=== PATIENT | female | born 1950 | race Caucasian/White ===

== ENCOUNTER 2016-10-07 11:59 | Inpatient (IN) | payer OTHER, MEDICARE ==
[2016-10-07] MEDS: Lidocaine 5% Patch TD SCH (13:37)
[2016-10-07] MEDS ORDERED: Sodium Chloride 0.9% 1,000 ML IV STA ×2 (14:45→16:19)
--- NOTE | 2016-10-07 14:55 | ED PDOC ---
HPI: Back Time Seen by Provider: 10/07/16 12:53 Chief Complaint (Nursing): Hip Pain Chief Complaint (Provider): Back and Hip Pain History Per: Patient, Family History/Exam Limitations: no limitations Onset/Duration Of Symptoms: Mins (Prior to arrival) Current Symptoms Are (Timing): Still Present Additional Complaint(s): Daniella is a 66 y/o female who was brought to the ED by family s/p slip and fall onto buttocks, now complaining of right hip and lower back pain. States past medical history of arthritis, usually gets injections with Dr. Huerta. However, has not received any recently. Mobility decreasing due to pain. Denies hitting head or neck in the fall. Family also notes urine has foul-smelling odor , and shes been somewhat weaker than normal. Past medical history includes diabetes, hypertension, arthritis, and hypercholesterolemia. PMD: Dr. Huerta Past Medical History Reviewed: Historical Data, Nursing Documentation, Vital Signs Vital Signs: Last Vital Signs Temp 102 F H 10/07/16 12:05 Pulse 112 H 10/07/16 12:05 Resp 16 10/07/16 12:05 BP 120/72 10/07/16 12:05 Pulse Ox 99 10/07/16 12:05 - Medical History PMH: Anxiety (Takes Ativan at home), Arthritis, Diabetes, HTN, Hypercholesterolemia Denies: HIV, Chronic Kidney Disease - Surgical History Surgical History: No Surg Hx - Family History Family History: States: Unknown Family Hx - Social History Current smoker - smoking cessation education provided: No - Home Medications Home Medications: Ambulatory Orders Medication Instructions Recorded Insulin Lispro Protamin/Lispro 40 units SC DAILY 04/17/15 [Humalog Mix 75-25 Vial] Zolpidem [Ambien] 10 mg PO HS 04/17/15 Amitriptyline HCl 25 mg PO HS #0 tablet 04/18/15 Aspirin [Ecotrin] 81 mg PO DAILY #0 tabec 04/18/15 Doxycycline Hyclate [Doryx] 100 mg PO BID #14 cap 04/18/15 Duloxetine HCl 60 mg PO DAILY #0 capsule. 04/18/15 Enalapril Maleate [Vasotec] 5 mg PO DAILY #0 tab 04/18/15 Glimepiride [Amaryl] 4 mg PO BID #0 tablet 04/18/15 Hydroxyzine Pamoate 50 mg PO HS #0 capsule 04/18/15 Insulin Glargine,Hum.rec.anlog 50 unit SC HS #0 vial 04/18/15 [Lantus] Insulin Lispro Mix 75/25 [HumaLOG 40 units SC ACB #0 ml 04/18/15 Mix 75/25] Insulin Lispro Protamin/Lispro 30 units SC HS #0 vial 04/18/15 [Humalog Mix 75-25 Vial] LORazepam [Ativan] 1 mg PO BID #0 tab 04/18/15 Metformin HCl [Metformin HCl ER] 750 mg PO BID #0 tab.er.24h 04/18/15 Multivit,Iron,Min 5/Folic Acid 1 tab PO DAILY #0 tablet 04/18/15 [Strovite Forte Caplet] Simvastatin [Zocor] 40 mg PO DAILY #0 tablet 04/18/15 Amoxicillin 500 mg PO Q8H #30 tablet 04/25/15 Doxycycline Hyclate 100 mg PO Q12H #20 tablet 04/25/15 - Allergies Allergies/Adverse Reactions: Allergies Allergy/AdvReac Type Severity Reaction Status Date / Time No Known Allergies Allergy Verified 10/07/16 12:05 Review of Systems ROS Statement: Except As Marked, All Systems Reviewed And Found Negative Constitutional: Positive for: Weakness Genitourinary Female: Positive for: Dysuria, Other (Foul smelling urine) Musculoskeletal: Positive for: Back Pain (Lower back), Leg Pain (Right hip pain) , Other (Joint pains). Negative for: Neck Pain Neurological: Negative for: Headache, Other (Head trauma during fall) Physical Exam - Reviewed Nursing Documentation Reviewed: Yes Vital Signs Reviewed: Yes - Physical Exam Appears: Positive for: Well, Non-toxic, No Acute Distress Head Exam: Positive for: ATRAUMATIC, NORMAL INSPECTION, NORMOCEPHALIC Skin: Positive for: Normal Color, Warm, Dry Eye Exam: Positive for: EOMI, Normal appearance, PERRL Neck: Positive for: Normal, Painless ROM, Supple Cardiovascular/Chest: Positive for: Regular Rate, Rhythm. Negative for: Murmur Respiratory: Positive for: Normal Breath Sounds. Negative for: Accessory Muscle Use, Respiratory Distress Gastrointestinal/Abdominal: Positive for: Normal Exam, Soft. Negative for: Tenderness Back: Positive for: Other (Tenderness to lumbar area and right hip) Extremity: Positive for: Normal ROM. Negative for: Pedal Edema, Deformity Neurologic/Psych: Positive for: Alert, Oriented. Negative for: Motor/Sensory Deficits - Laboratory Results Result Diagrams: 10/07/16 15:30 10/07/16 15:30 - ECG O2 Sat by Pulse Oximetry: 99 (RA) Pulse Ox Interpretation: Normal Medical Decision Making Medical Decision Making: Time: 12:53 Initial Plan: --In ED patient was found to have fever, therefore workup for sepsis initiated --Initiated Tylenol for fever and pain --Will work up for source of infection, possibly urine; obtain imaging back/ hips r/o traumatic injury from fall. Denies hitting head. --Pending X-Rays Right Hip and Lumbar Spine --X-Rays Right Hip and Lumbar Spine reveal no fracture, interpreted and reviewed by me Time: 15:00 --Patient is signed out by me to Dr. Sophia Cruz, pending labs and reevaluation Scribe Attestation: Documented by Caitlin Guevara, acting as a scribe for Rolo Thompson III, DO Provider Scribe Attestation: All medical record entries made by the Scribe were at my direction and personally dictated by me. I have reviewed the chart and agree that the record accurately reflects my personal performance of the history, physical exam, medical decision making, and the department course for this patient. I have also personally directed, reviewed, and agree with the discharge instructions and disposition. Disposition - Clinical Impression Clinical Impression: Fever, Contusion, hip, Back pain - Patient ED Disposition Is Patient to be Admitted: Transfer of Care - Disposition Disposition: Transfer of Care Disposition Time: 15:00 Condition: GUARDED Forms: [employer] ([employer]) Patient Signed Over To: Sophia Cruz Handoff Comments: pending bloodwork and dispo
--- NOTE | 2016-10-07 15:27 | ED PDOC ---
- Laboratory Results Result Diagrams: 10/07/16 15:30 10/07/16 15:30 - ECG O2 Sat by Pulse Oximetry: 99 (RA) Pulse Ox Interpretation: Normal Medical Decision Making Medical Decision Making: Time: 15:00 --Patient is signed out by Dr. Rolo Thompson III DO to me, pending urine, labs, and reevaluation Time: 16:20 --Labs and urine reviewed, Urine WBC count elevated, uti noted Clinical Impression: UTI, Sepsis --Will be admitted to hospitalist for UTI and sepsis workup --Dr. Reid aware --IV fluids and Rocephin given --Patient and family's questions answered Scribe Attestation: Documented by Caitlin Guevara, acting as a scribe for Sophia Cruz MD Provider Scribe Attestation: All medical record entries made by the Scribe were at my direction and personally dictated by me. I have reviewed the chart and agree that the record accurately reflects my personal performance of the history, physical exam, medical decision making, and the department course for this patient. I have also personally directed, reviewed, and agree with the discharge instructions and disposition. Disposition - Clinical Impression Clinical Impression: Fever, Contusion, hip, Back pain, UTI (urinary tract infection) - POA Present On Arrival: None - Disposition Disposition: Admitted as In-Patient Disposition Time: 16:00 Condition: GUARDED
[2016-10-07 15:40] LABS: VENOUS BLOOD GAS BASE EXCESS 1.4 mmol/L (0.0-2.0); VENOUS BLOOD GAS PCO2 35 mmHg (40-60); VENOUS BLOOD PH 7.46 (7.32-7.43)
[2016-10-07 15:44] LABS: BASO % 0.1 % (0.0-2.0); HEMATOCRIT 38.4 % (34.0-47.0); LYMPH % 9.9 % (20.0-40.0); MEAN CELL VOLUME 78.6 fl (81.0-99.0); MEAN CORPUSCULAR HEMOGLOBIN 24.8 pg (27.0-31.0); MEAN CORPUSCULAR HGB CONC 31.5 g/dL (33.0-37.0); MEAN PLATELET VOLUME 8.9 fl (7.2-11.7); MONO # 1.4 K/uL (0.0-0.8); MONO % 6.8 % (0.0-10.0); NEUT # 16.7 K/uL (1.8-7.0); NEUT % 83.2 % (50.0-75.0); RED CELL DISTRIBUTION WIDTH 13.5 % (11.5-14.5); WHITE BLOOD COUNT 20.1 K/uL (4.8-10.8)
[2016-10-07 15:52] LABS: ALB/GLOB RATIO 1.1 (1.0-2.1); ALKALINE PHOSPHATASE 80 U/L (38-126); ALT/SGPT 49 U/L (9-52); AST/SGOT 27 U/L (14-36); BILIRUBIN,TOTAL 0.8 mg/dl (0.2-1.3); BLOOD UREA NITROGEN 15 mg/dl (7-17); CALCIUM 9.3 mg/dL (8.4-10.2); CARBON DIOXIDE 23 mmol/L (22-30); CHLORIDE 98 mmol/L (98-107); GFR AFRICAN-AMERICAN > 60; GLUCOSE,RANDOM 279 mg/dL (65-105); POTASSIUM 3.9 MMOL/L (3.6-5.0); SODIUM 132 mmol/l (132-148); TOTAL PROTEIN 7.1 G/DL (6.3-8.2)
[2016-10-07 16:00] LABS: PLATELET COUNT 211 K/uL (130-400)
[2016-10-07 16:06] LABS: RBC URINE 13 /hpf (0-3); URINE BACTERIA MANY (<OCC); URINE BILIRUBIN NEGATIVE (NEGATIVE); URINE BLOOD SMALL (NEGATIVE); URINE COLOR YELLOW (YELLOW); URINE GLUCOSE (UA) >=500 mg/dL (Normal); URINE KETONE 20 mg/dL (NEGATIVE); URINE LEUKOCYTE ESTERASE LARGE Leu/uL (Negative); URINE PROTEIN 100 mg/dL (NEGATIVE); URINE UROBILINOGEN 0.2-1.0 mg/dL (0.2-1.0); WBC URINE 353 /hpf (0-5)
--- NOTE | 2016-10-07 17:06 | RAD ---
PROCEDURE: Radiographs of the Lumbar Spine. HISTORY: fall trauma COMPARISON: 09/18/2007 FINDINGS: BONES: No acute fracture. DISC SPACES: Progressive degenerative changes primarily disc space narrowing and non marginal osteophyte formation OTHER FINDINGS: None. IMPRESSION: Progressive degenerative changes common no acute findings.
--- NOTE | 2016-10-07 17:07 | RAD ---
PROCEDURE: Pelvis right hip HISTORY: fall trauma COMPARISON: None TECHNIQUE: Standard protocol for this study/examination. FINDINGS: There are no osseous abnormalities to suggest fracture. The pelvic ring is intact. Preserved femoral-acetabular relationship. Negative study for protrusio, subluxation or dislocation. Degenerative changes: Mild and bilaterally symmetrical. IMPRESSION: No acute findings related to/accounting for the clinical presentation.
--- NOTE | 2016-10-07 17:13 | RAD ---
HISTORY: Fever COMPARISON: 04/22/2015. FINDINGS: LUNGS: No active pulmonary disease. PLEURA: No significant pleural effusion identified, no pneumothorax apparent. CARDIOVASCULAR: No radiographic findings to suggest acute or significant cardiovascular disease. OSSEOUS STRUCTURES: No significant abnormalities. VISUALIZED UPPER ABDOMEN: Normal. OTHER FINDINGS: None. IMPRESSION: No active disease. No significant interval change compared to the prior examination(s).
--- NOTE | 2016-10-07 17:34 | CP.PCM.HP ---
History of Present Illness - History of Present Illness History of Present Illness: CC: hip pain HPI 66 year old female PMH HTN HLD DM osteoarthritis, initially presented to the emergency room s/p mechanical fall, without head injury, for pain in hips and legs, which she states is moderate, nonradiating, no associated with any other sx. Patient usually receives injections from Dr. Huerta for pain. Pt HIP and PELVIS XR showed degenerative changes without any acute findings. Patient also complained of foul smelling urine, UA + LE and nit, WBC 20.1 pt tachycardic TMAX 102 in ER, pt started on Ceftriaxone. Pt to be admitted to [facility] for IV abx and further management. ROS: per HPI, 12 systems reviewed and negative PMD: Dr Huerta PMH: HTN HLD DM osteoarthritis FH: denies SH: denies tobacco, ETOH, IVDU Meds: as below Allergies: NKDA Vitals: reviewed and currently stable Temp Pulse Resp BP Pulse Ox 100.4 F H 112 H 16 120/72 99 10/07/16 14:20 10/07/16 12:05 10/07/16 12:05 10/07/16 12:05 10/07/16 16:28 Exam: GEN: WDWN, alert, cooperative HEENT: NCAT, PERRL, EOMI NECK: supple, no JVD, no lymphadenopathy CARDIAC: +S1S2 RRR LUNG: CTAB No WRR ABD: SOFT NT ND BSX4 NO MASSES NO HSM EXT: +pedal pulses, equal strength NEURO: AAOx3 SKIN warm, dry PSYCH normal mood, normal affect Labs: 10/07/16 15:30 10/07/16 15:30 10/07/16 10/07/16 10/07/16 15:35 15:30 15:30 WBC 20.1 H D RBC 4.89 Hgb 12.1 Hct 38.4 MCV 78.6 L MCH 24.8 L MCHC 31.5 L RDW 13.5 Plt Count 211 D MPV 8.9 Neut % (Auto) 83.2 H Lymph % (Auto) 9.9 L [place] % (Auto) 6.8 Eos % (Auto) 0.0 Baso % (Auto) 0.1 Neut # 16.7 H Lymph # 2.0 [place] # 1.4 H Eos # 0.0 Baso # 0.0 Neutrophils % (Manual) 80 H Band Neutrophils % 1 Lymphocytes % (Manual) 11 L Monocytes % (Manual) 8 Platelet Estimate Normal Hypochromasia (manual) Slight Anisocytosis (manual) Slight Microcytosis (manual) Slight pO2 46 VBG pH 7.46 H VBG pCO2 35 L VBG HCO3 25.7 VBG Total CO2 26.0 VBG O2 Sat (Calc) 89.2 H VBG Base Excess 1.4 VBG Potassium 3.9 Glucose 300 H Lactate 1.5 FiO2 21.0 Sodium 131.0 L Potassium Chloride 98.0 Carbon Dioxide Anion Gap BUN Creatinine Est GFR ( Amer) Est GFR (Non-Af Amer) Random Glucose Calcium Total Bilirubin AST ALT Alkaline Phosphatase Total Protein Albumin Globulin Albumin/Globulin Ratio Venous Blood Potassium 3.9 Urine Color Yellow Urine Clarity Cloudy Urine pH 5.0 Ur Specific [place] 1.023 Urine Protein 100 Urine Glucose (UA) >=500 Urine Ketones 20 Urine Blood Small Urine Nitrate Positive H Urine Bilirubin Negative Urine Urobilinogen 0.2-1.0 Ur Leukocyte Esterase Large Urine RBC (Auto) 13 H Urine Microscopic WBC 353 H Ur Squamous Epith Cells 18 H Urine Bacteria Many H 10/07/16 15:30 WBC RBC Hgb Hct MCV MCH MCHC RDW Plt Count MPV Neut % (Auto) Lymph % (Auto) [place] % (Auto) Eos % (Auto) Baso % (Auto) Neut # Lymph # [place] # Eos # Baso # Neutrophils % (Manual) Band Neutrophils % Lymphocytes % (Manual) Monocytes % (Manual) Platelet Estimate Hypochromasia (manual) Anisocytosis (manual) Microcytosis (manual) pO2 VBG pH VBG pCO2 VBG HCO3 VBG Total CO2 VBG O2 Sat (Calc) VBG Base Excess VBG Potassium Glucose Lactate FiO2 Sodium 132 Potassium 3.9 Chloride 98 Carbon Dioxide 23 Anion Gap 15 BUN 15 Creatinine 0.7 Est GFR ( Amer) > 60 Est GFR (Non-Af Amer) > 60 Random Glucose 279 H Calcium 9.3 Total Bilirubin 0.8 AST 27 ALT 49 Alkaline Phosphatase 80 Total Protein 7.1 Albumin 3.7 Globulin 3.3 Albumin/Globulin Ratio 1.1 Venous Blood Potassium Urine Color Urine Clarity Urine pH Ur Specific [place] Urine Protein Urine Glucose (UA) Urine Ketones Urine Blood Urine Nitrate Urine Bilirubin Urine Urobilinogen Ur Leukocyte Esterase Urine RBC (Auto) Urine Microscopic WBC Ur Squamous Epith Cells Urine Bacteria Rads: HIP and PELVIS XR showed degenerative changes without any acute findings Active Medications: Sodium Chloride 0.9% 1,000 ml IV 200 mls/hr 10/07/16 17:28 Ondansetron [Zofran Inj] 4 mg IVP Q6 PRN 10/07/16 17:30 LORazepam [Ativan] 1 mg PO Q12H 10/07/16 22:00 Amitriptyline [Elavil] 50 mg PO HS Insulin Lispro [humALOG] See Protocol SC ACHS hydrOXYzine Pamoate [Vistaril] 50 mg PO HS 10/08/16 08:00 GlipiZIDE SR [Glucotrol XL] 10 mg PO BRK 10/08/16 09:00 Aspirin [Ecotrin] 81 mg PO DAILY Atorvastatin [Lipitor] 20 mg PO DAILY DULoxetine [Cymbalta] 60 mg PO DAILY Enalapril Maleate [Vasotec] 5 mg PO DAILY Enoxaparin [Lovenox] 40 mg SC DAILY Lidocaine 5% [Lidoderm] 1 ea TD DAILY cefTRIAXone [Rocephin] 1 gm Sodium Chloride 0.9% 100 ml IVPB DAILY 10/11/16 17:29 Cholecalciferol [Vitamin D] 5,000 iu PO MO Assessment and Plan: 66 year old female PMH HTN HLD DM osteoarthritis, initially presented to the emergency room s/p mechanical fall, without head injury, for pain in hips and legs, which she states is moderate, nonradiating, no associated with any other sx. Patient usually receives injections from Dr. Huerta for pain. Pt HIP and PELVIS XR showed degenerative changes without any acute findings. Patient also complained of foul smelling urine, UA + LE and nit, WBC 20.1 pt tachycardic TMAX 102 in ER, pt started on Ceftriaxone. Pt to be admitted to [facility] for IV abx and further management. Sepsis/UTI - Patient complained of foul smelling urine - UA + LE and nit, WBC 20.1, pt was tachycardic 112, TMAX 102 in ER - pt started on Ceftriaxone. - cultures pending Hip Pain - XR negative other than degenerative changes, no acute pathology DM - accuchecks - lispro sliding scale low - cont glipizide HTN - stable - cont vasotec HLD - cont statin Depression/Anxiety - continue ativan, elavil, cymbalta VTE ppx lovenox Present on Admission - Present on Admission Any Indicators Present on Admission: No Past Patient History - Past Medical History & Family History Past Medical History?: Yes - Past Social History Smoking Status: Never Smoked - CARDIAC Hx Hypercholesterolemia: Yes Hx Hypertension: Yes - PULMONARY Hx Respiratory Disorders: No - NEUROLOGICAL Hx Neurological Disorder: No - HEENT Hx HEENT Problems: Yes Other/Comment: Wears eyeglasses - RENAL Hx Chronic Kidney Disease: No - ENDOCRINE/METABOLIC Hx Endocrine Disorders: Yes Hx Diabetes Mellitus Type 2: Yes - HEMATOLOGICAL/ONCOLOGICAL Hx Human Immunodeficiency Virus (HIV): No - INTEGUMENTARY Hx Dermatological Problems: Yes Hx Cellulitis: Yes (hx of cellulitis of abdomen) - MUSCULOSKELETAL/RHEUMATOLOGICAL Hx Arthritis: Yes - GASTROINTESTINAL Hx Gastrointestinal Disorders: No - GENITOURINARY/GYNECOLOGICAL Hx Genitourinary Disorders: No - PSYCHIATRIC Hx Anxiety: Yes (Takes Ativan at home) - SURGICAL HISTORY Hx Surgeries: Yes Hx Hysterectomy: Yes Hx Tubal Ligation: Yes Other/Comment: tubal ligation/tonsil surgery - ANESTHESIA Hx Anesthesia: Yes Hx Anesthesia Reactions: No Hx Malignant Hyperthermia: No Meds Allergies/Adverse Reactions: Allergies Allergy/AdvReac Type Severity Reaction Status Date / Time No Known Allergies Allergy Verified 10/07/16 12:05 Results - Vital Signs Recent Vital Signs: Last Vital Signs Temp 100.4 F H 10/07/16 14:20 Pulse 112 H 10/07/16 12:05 Resp 16 10/07/16 12:05 BP 120/72 10/07/16 12:05 Pulse Ox 99 10/07/16 16:28 - Labs Result Diagrams: 10/07/16 15:30 10/07/16 15:30
[2016-10-07] MEDS ORDERED: cefTRIAXone (Rocephin) 1 gm Inj ONE (17:48)
[2016-10-07 18:24] LABS: NEUTROPHIL 80 % (42-75); TOTAL CELLS COUNTED 100
[2016-10-07] MEDS ORDERED: Metoprolol 1 mg/ml Inj IVP STA (19:45)
[2016-10-07] MEDS ORDERED: Metoprolol 1 mg/ml Inj IVP ONE (20:01)
[2016-10-07] MEDS: Insulin Lispro (humaLOG) 100 Units/ml Inj SC SCH (21:54)
[2016-10-07] MEDS: Sodium Chloride 0.9% 1,000 ML IV SCH (23:04)
[2016-10-08] MEDS: Insulin Lispro (humaLOG) 100 Units/ml Inj SC SCH ×4 (06:31→22:38)
[2016-10-08] MEDS: Sodium Chloride 0.9% 1,000 ML IV SCH ×2 (08:00→18:57)
[2016-10-08] MEDS: GlipiZIDE 10 mg SR Tab PO SCH (08:44)
[2016-10-08 08:48] LABS: BASO % 0.1 % (0.0-2.0); HEMATOCRIT 39.2 % (34.0-47.0); LYMPH # 1.2 K/uL (1.0-4.3); MEAN CORPUSCULAR HEMOGLOBIN 25.1 pg (27.0-31.0); MEAN CORPUSCULAR HGB CONC 31.8 g/dL (33.0-37.0); MONO # 1.1 K/uL (0.0-0.8); MONO % 6.2 % (0.0-10.0); NEUT # 14.9 K/uL (1.8-7.0); NEUT % 86.7 % (50.0-75.0); RED CELL DISTRIBUTION WIDTH 13.5 % (11.5-14.5); WHITE BLOOD COUNT 17.2 K/uL (4.8-10.8)
[2016-10-08 09:01] LABS: BLOOD UREA NITROGEN 13 mg/dl (7-17); CALCIUM 8.7 mg/dL (8.4-10.2); CARBON DIOXIDE 22 mmol/L (22-30); CHLORIDE 103 mmol/L (98-107); GFR AFRICAN-AMERICAN > 60; GLUCOSE,RANDOM 259 mg/dL (65-105); POTASSIUM 4.1 MMOL/L (3.6-5.0); SODIUM 136 mmol/l (132-148)
[2016-10-08] MEDS: Enoxaparin 40 mg Syringe SC SCH (09:41)
--- NOTE | 2016-10-08 10:39 | CARD ---
APPROVED REPORT EKG Measurement Heart [id number] <Conclusion> Sinus tachycardia Nonspecific ST abnormality Abnormal ECG
--- NOTE | 2016-10-08 16:08 | CP.PCM.CON ---
History of Present Illness - History of Present Illness History of Present Illness: Infectious Disease Consult note- was asked to see ths patient at the request of for bacteremia and UTI. HPI- patient is a 66 year old female with omh of DM II, HTN, who was admitted with c/ o right leg and hip pain post slipping and neda ddition she also c/o foul smelling urine with buring sensation post voiding. denies any fever or chills. In the ED pt. was found to have fever of 102 and + UA and hence was admitted for sepsis work up. Pt. denies any fever or chills at home. she states she has had UTI in the past. also states she did not fall she slipped on the right side of her body and has pain in the right leg and hip region. I'masked to see the patient because she is reported to have positive blood and urine cx. PMH: HTN HLD DM osteoarthritis FH: denies SH: denies tobacco, ETOH, IVDU Meds: as below Allergies: NKDA Review of Systems - Review of Systems Review of Systems: ROS- denies any fever or chills but was found to have fever in ED, denies any SOLANO, denies any cough, denies any sob, denies any chest pain, denies any N/V, denies any abd pain , + dysurea and foul smelling urine, positive right leg/hip pain post slipping at home denies any diarrhea denies any sick contacts Past Patient History - Past Medical History & Family History Past Medical History?: Yes - Past Social History Smoking Status: Never Smoked Alcohol: None Drugs: Denies Home Situation {Lives}: Alone - CARDIAC Hx Hypercholesterolemia: Yes Hx Hypertension: Yes - PULMONARY Hx Respiratory Disorders: No - NEUROLOGICAL Hx Neurological Disorder: No - HEENT Hx HEENT Problems: Yes - RENAL Hx Chronic Kidney Disease: No - ENDOCRINE/METABOLIC Hx Endocrine Disorders: Yes Hx Diabetes Mellitus Type 2: Yes - HEMATOLOGICAL/ONCOLOGICAL Hx Blood Disorders: No - INTEGUMENTARY Hx Dermatological Problems: No - MUSCULOSKELETAL/RHEUMATOLOGICAL Hx Musculoskeletal Disorders: Yes Hx Arthritis: Yes Hx Falls: Yes (recent) - GASTROINTESTINAL Hx Gastrointestinal Disorders: No - GENITOURINARY/GYNECOLOGICAL Hx Genitourinary Disorders: No - PSYCHIATRIC Hx Psychophysiologic Disorder: Yes Hx Anxiety: Yes Hx Substance Use: No - SURGICAL HISTORY Hx Surgeries: Yes Hx Hysterectomy: Yes Hx Tubal Ligation: Yes Other/Comment: tubal ligation/tonsil surgery - ANESTHESIA Hx Anesthesia: Yes Hx Anesthesia Reactions: No Hx Malignant Hyperthermia: No Meds Allergies/Adverse Reactions: Allergies Allergy/AdvReac Type Severity Reaction Status Date / Time No Known Allergies Allergy Verified 10/07/16 12:05 - Medications Medications: Current Medications Acetaminophen (Tylenol 325mg Tab) 650 mg PO Q4 PRN PRN Reason: Fever >100.4 F Amitriptyline HCl (Elavil) 50 mg PO HS [facility] Last Admin: 10/07/16 22:19 Dose: 50 mg Aspirin (Ecotrin) 81 mg PO DAILY [facility] Last Admin: 10/08/16 09:05 Dose: 81 mg Atorvastatin Calcium (Lipitor) 20 mg PO DAILY [facility] Cholecalciferol (Vitamin D) 5,000 iu PO MO [facility] Duloxetine HCl (Cymbalta) 60 mg PO DAILY [facility] Last Admin: 10/08/16 09:56 Dose: Not Given Enalapril Maleate (Vasotec) 5 mg PO DAILY [facility] Last Admin: 10/08/16 09:50 Dose: 5 mg Enoxaparin Sodium (Lovenox) 40 mg SC DAILY [facility] PRN Reason: Protocol Last Admin: 10/08/16 09:41 Dose: 40 mg Glipizide (Glucotrol Xl) 10 mg PO BRK [facility] Last Admin: 10/08/16 08:44 Dose: 10 mg Hydroxyzine Pamoate (Vistaril) 50 mg PO HS [facility] Last Admin: 10/07/16 22:19 Dose: 50 mg Ceftriaxone Sodium 1 gm/ (Sodium Chloride) 100 mls @ 100 mls/hr IVPB DAILY [facility] Last Admin: 10/08/16 09:19 Dose: 100 mls/hr Sodium Chloride (Sodium Chloride 0.9%) 1,000 mls @ 100 mls/hr IV .Q10H [facility] Stop: 10/08/16 22:30 Last Admin: 10/08/16 08:00 Dose: 100 mls/hr Vancomycin HCl 1 gm/ Sodium (Chloride) 250 mls @ 166.667 mls/hr IVPB DAILY [facility] Insulin Human Lispro (Humalog) 0 units SC ACHS [facility] PRN Reason: Protocol Last Admin: 10/08/16 12:13 Dose: 3 units Ketorolac Tromethamine (Toradol) 30 mg IVP Q6 PRN PRN Reason: Pain, severe (8-10) Last Admin: 10/08/16 10:49 Dose: 30 mg Ketorolac Tromethamine (Toradol) 15 mg IVP Q6 PRN PRN Reason: Pain, moderate (4-7) Lidocaine (Lidoderm) 1 ea TD DAILY [facility] Last Admin: 10/07/16 13:37 Dose: 1 ea Lorazepam (Ativan) 1 mg PO Q12@0900,2100 [facility] Last Admin: 10/08/16 09:40 Dose: 1 mg Metoprolol Tartrate (Lopressor) 12.5 mg PO Q12 [facility] Last Admin: 10/08/16 09:42 Dose: 12.5 mg Ondansetron HCl (Zofran Inj) 4 mg IVP Q6 PRN PRN Reason: Nausea/Vomiting Zolpidem Tartrate (Ambien) 5 mg PO HS PRN PRN Reason: Sleep Last Admin: 10/07/16 22:57 Dose: 5 mg Physical Exam - Constitutional Appears: No Acute Distress - Head Exam Head Exam: ATRAUMATIC - Eye Exam Eye Exam: EOMI, PERRL - ENT Exam ENT Exam: Normal Oropharynx - Neck Exam Neck exam: Positive for: Full Rom - Respiratory Exam Respiratory Exam: Clear to Auscultation Bilateral, NORMAL BREATHING PATTERN - Cardiovascular Exam Cardiovascular Exam: RRR, +S1, +S2 - GI/Abdominal Exam GI & Abdominal Exam: Normal Bowel Sounds, Soft Additional comments: NT, ND No CVA tenderness - Extremities Exam Additional comments: no edema B/L LE - Neurological Exam Neurological exam: Alert, Oriented x3 Results - Vital Signs Recent Vital Signs: Last Vital Signs Temp 99.2 F 10/08/16 12:00 Pulse 96 H 10/08/16 12:00 Resp 18 10/08/16 12:00 BP 109/66 10/08/16 12:00 Pulse Ox 95 10/08/16 12:00 - Labs Result Diagrams: 10/08/16 08:39 10/08/16 08:39 Labs: Laboratory Results - last 24 hr 10/07/16 10/07/16 10/08/16 17:35 21:22 05:44 WBC RBC Hgb Hct MCV MCH MCHC RDW Plt Count MPV Neut % (Auto) Lymph % (Auto) [place] % (Auto) Eos % (Auto) Baso % (Auto) Neut # Lymph # [place] # Eos # Baso # Sodium Potassium Chloride Carbon Dioxide Anion Gap BUN Creatinine Est GFR ( Amer) Est GFR (Non-Af Amer) POC Glucose (mg/dL) 265 H 273 H 277 H Random Glucose Calcium 10/08/16 10/08/16 10/08/16 08:39 08:39 11:32 WBC 17.2 H RBC 4.96 Hgb 12.4 Hct 39.2 MCV 79.0 L MCH 25.1 L MCHC 31.8 L RDW 13.5 Plt Count 200 MPV 9.0 Neut % (Auto) 86.7 H Lymph % (Auto) 7.0 L [place] % (Auto) 6.2 Eos % (Auto) 0.0 Baso % (Auto) 0.1 Neut # 14.9 H Lymph # 1.2 [place] # 1.1 H Eos # 0.0 Baso # 0.0 Sodium 136 Potassium 4.1 Chloride 103 Carbon Dioxide 22 Anion Gap 14 BUN 13 Creatinine 0.6 L Est GFR ( Amer) > 60 Est GFR (Non-Af Amer) > 60 POC Glucose (mg/dL) 281 H Random Glucose 259 H Calcium 8.7 Microbiology 10/07/16 15:15 Blood S.aureus & Coag-Neg Staph PNA FISH - Final 10/07/16 15:15 Blood Gram Stain - Final 10/07/16 15:30 Blood Gram Stain - Final 10/07/16 15:30 Urine,Clean Catch Urine Culture - Preliminary Gram Negative [place] Accession No. : [id number] Patient Name / ID : KEVAN WALL / [id number] Exam Date : 10/07/2016 14:46:03 ( Approved ) Study Comment : Sex / Age : F / 66Y Creator : Levi Frausto MD Dictator : Levi Frausto MD Plumber'S Assistant : [employer] Pipe Fitter : Levi Frausto MD Approver2 : Report Date : 10/07/2016 17:11:50 My Comment : HISTORY: Fever COMPARISON: 04/22/2015. FINDINGS: LUNGS: No active pulmonary disease. PLEURA: No significant pleural effusion identified, no pneumothorax apparent. CARDIOVASCULAR: No radiographic findings to suggest acute or significant cardiovascular disease. OSSEOUS STRUCTURES: No significant abnormalities. VISUALIZED UPPER ABDOMEN: Normal. OTHER FINDINGS: None. IMPRESSION: No active disease. No significant interval change compared to the prior examination(s). Accession No. : [id number] Patient Name / ID : KEVAN WALL / [id number] Exam Date : 10/07/2016 13:16:41 ( Approved ) Study Comment : Sex / Age : F / 66Y Creator : Levi Frausto MD Dictator : Levi Frausto MD Plumber'S Assistant : [employer] Pipe Fitter : Levi Frausto MD Approver2 : Report Date : 10/07/2016 17:05:56 My Comment : PROCEDURE: Pelvis right hip HISTORY: fall trauma COMPARISON: None TECHNIQUE: Standard protocol for this study/examination. FINDINGS: There are no osseous abnormalities to suggest fracture. The pelvic ring is intact. Preserved femoral-acetabular relationship. Negative study for protrusio , subluxation or dislocation. Degenerative changes: Mild and bilaterally symmetrical. IMPRESSION: No acute findings related to/accounting for the clinical presentation. Assessment & Plan - Assessment and Plan (Free Text) Assessment: A/P- 66 year old female with HTN, DM II admitted with UTI and found to also have bacteremia. afebrile now has leukocytosis. source of the GPC bacteremia uncler since the urine cx is GNR. plan- check echo rule out any vegetations. await ID and sensitivity of the GPC in blood cx. at this time start IV vancomycin for the GPC bacteremia. also advise to d/c ceftriaxone and instead start zosyn for broader gram neg coverage pending urine cx and sensitivity result. check 2 more blood cx as well. all above d/w patient and she verbalizes full understanding of all above. Thank you for allowing me to take part in the care of this patient.
--- NOTE | 2016-10-08 18:04 | CP.PCM.PN ---
Subjective - Date & Time of Evaluation Date of Evaluation: 10/08/16 Time of Evaluation: 09:30 - Subjective Subjective: Patient was seen and examined bedside. Does not feel well. Complains of severe pain to right hip radiating to the lateral thigh. Febrile with Tmax 102.9, tachycardic HR 111 . Denies any abdominal pain, SOB, CVP, cough. Denies any fall Objective - Vital Signs/Intake and Output Vital Signs (last 24 hours): Temp Pulse Resp BP Pulse Ox 100.0 F H 111 H 20 154/78 H 97 10/08/16 16:26 10/08/16 16:26 10/08/16 16:26 10/08/16 16:26 10/08/16 16:26 - Medications Medications: Current Medications Acetaminophen (Tylenol 325mg Tab) 650 mg PO Q4 PRN PRN Reason: Fever >100.4 F Amitriptyline HCl (Elavil) 50 mg PO HS [facility] Last Admin: 10/07/16 22:19 Dose: 50 mg Aspirin (Ecotrin) 81 mg PO DAILY [facility] Last Admin: 10/08/16 09:05 Dose: 81 mg Atorvastatin Calcium (Lipitor) 20 mg PO DAILY [facility] Cholecalciferol (Vitamin D) 5,000 iu PO MO [facility] Duloxetine HCl (Cymbalta) 60 mg PO DAILY [facility] Last Admin: 10/08/16 09:56 Dose: Not Given Enalapril Maleate (Vasotec) 5 mg PO DAILY [facility] Last Admin: 10/08/16 09:50 Dose: 5 mg Enoxaparin Sodium (Lovenox) 40 mg SC DAILY [facility] PRN Reason: Protocol Last Admin: 10/08/16 09:41 Dose: 40 mg Glipizide (Glucotrol Xl) 10 mg PO BRK [facility] Last Admin: 10/08/16 08:44 Dose: 10 mg Hydroxyzine Pamoate (Vistaril) 50 mg PO HS [facility] Last Admin: 10/07/16 22:19 Dose: 50 mg Ceftriaxone Sodium 1 gm/ (Sodium Chloride) 100 mls @ 100 mls/hr IVPB DAILY [facility] Last Admin: 10/08/16 09:19 Dose: 100 mls/hr Sodium Chloride (Sodium Chloride 0.9%) 1,000 mls @ 100 mls/hr IV .Q10H [facility] Stop: 10/08/16 22:30 Last Admin: 10/08/16 08:00 Dose: 100 mls/hr Vancomycin HCl 1 gm/ Sodium (Chloride) 250 mls @ 166.667 mls/hr IVPB DAILY [facility] Insulin Human Lispro (Humalog) 0 units SC ACHS [facility] PRN Reason: Protocol Last Admin: 10/08/16 12:13 Dose: 3 units Ketorolac Tromethamine (Toradol) 30 mg IVP Q6 PRN PRN Reason: Pain, severe (8-10) Last Admin: 10/08/16 10:49 Dose: 30 mg Ketorolac Tromethamine (Toradol) 15 mg IVP Q6 PRN PRN Reason: Pain, moderate (4-7) Lidocaine (Lidoderm) 1 ea TD DAILY [facility] Last Admin: 10/07/16 13:37 Dose: 1 ea Lorazepam (Ativan) 1 mg PO Q12@0900,2100 [facility] Last Admin: 10/08/16 09:40 Dose: 1 mg Metoprolol Tartrate (Lopressor) 12.5 mg PO Q12 [facility] Last Admin: 10/08/16 09:42 Dose: 12.5 mg Ondansetron HCl (Zofran Inj) 4 mg IVP Q6 PRN PRN Reason: Nausea/Vomiting Zolpidem Tartrate (Ambien) 5 mg PO HS PRN PRN Reason: Sleep Last Admin: 10/07/16 22:57 Dose: 5 mg - Labs Labs: 10/08/16 08:39 10/08/16 08:39 - Constitutional Appears: Other (in pain ) - Head Exam Head Exam: ATRAUMATIC, NORMAL INSPECTION, NORMOCEPHALIC - Eye Exam Eye Exam: EOMI, Normal appearance, PERRL Pupil Exam: NORMAL ACCOMODATION - ENT Exam ENT Exam: Mucous Membranes Moist, Normal Exam - Neck Exam Neck Exam: Full ROM, Normal Inspection - Respiratory Exam Respiratory Exam: Clear to Ausculation Bilateral, NORMAL BREATHING PATTERN. absent: Rales, Rhonchi, Wheezes - Cardiovascular Exam Cardiovascular Exam: Tachycardia, REGULAR RHYTHM, RRR, +S1, +S2. absent: JVD - GI/Abdominal Exam GI & Abdominal Exam: Soft, Normal Bowel Sounds. absent: Distended, Guarding, Tenderness, Rebound - Rectal Exam Rectal Exam: Deferred - Extremities Exam Extremities Exam: Normal Capillary Refill, Normal Inspection. absent: Calf Tenderness, Pedal Edema Additional comments: pain to right hip and decreased ROM - Back Exam Back Exam: NORMAL INSPECTION - Neurological Exam Neurological Exam: Alert, Awake, CN II-XII Intact, Oriented x3 - Psychiatric Exam Psychiatric exam: Normal Affect - Skin Skin Exam: Dry, Intact, Normal Color, Warm Assessment and Plan - Assessment and Plan (Free Text) Assessment: 66 year old female PMH HTN HLD DM osteoarthritis, initially presented to the emergency room s/p mechanical fall, without head injury, for pain in hips and legs, which she states is moderate, nonradiating, no associated with any other sx. Patient usually receives injections from Dr. Huerta for pain. Pt HIP and PELVIS XR showed degenerative changes without any acute findings. Patient also complained of foul smelling urine, UA + LE and nit, WBC 20.1 pt tachycardic TMAX 102 in ER, pt started on Ceftriaxone. Pt to be admitted to [facility] for IV abx and further management. 1.Sepsis with gram positive cocci n clusters bacteremia and gram negative angelica UTI patient still febrile, tachycardic with elevated WBC but trending down from 20 k --17K Blood cx positive for gram positive cocci in clusters nd urine cx positive for garm negativ angelica Started vancomycin Iv Continue Rocephin ID consulted Continue IVF , Tylenol for fever and pain management 2.UTI on rocephin IV Follow up cultures identification and sensitivities 3.Intractable hip Pain pelvis and lumbar spine Xray showed no acute pathology Continue pain management 4.DM uncontrolled accuchecks,lispro sliding scale low, diabetic diet Follow up Hgb A1c cont glipizide 5.HTN stable cont vasotec 6.HLD cont statin 7.Depression/Anxiety continue ativan, elavil, cymbalta 8. DVt prophylaxis SCD , lovenox
[2016-10-08] MEDS: Piperacillin/Tazobact 3.375 GM in Sodium Chloride 0.9% 100 ML IVPB SCH (18:56)
[2016-10-09] MEDS: Piperacillin/Tazobact 3.375 GM in Sodium Chloride 0.9% 100 ML IVPB SCH ×3 (02:00→17:27)
[2016-10-09 08:06] LABS: BASO % 0.3 % (0.0-2.0); EOS % 0.1 % (0.0-4.0); HEMATOCRIT 34.7 % (34.0-47.0); LYMPH # 2.1 K/uL (1.0-4.3); LYMPH % 13.8 % (20.0-40.0); MEAN CELL VOLUME 78.6 fl (81.0-99.0); MEAN CORPUSCULAR HGB CONC 31.8 g/dL (33.0-37.0); MEAN PLATELET VOLUME 9.5 fl (7.2-11.7); MONO # 1.2 K/uL (0.0-0.8); MONO % 7.8 % (0.0-10.0); NEUT # 12.1 K/uL (1.8-7.0); NRBC % 0.1 % (0.0-0.0); RED CELL DISTRIBUTION WIDTH 13.3 % (11.5-14.5); WHITE BLOOD COUNT 15.5 K/uL (4.8-10.8)
[2016-10-09 08:13] LABS: BLOOD UREA NITROGEN 14 mg/dl (7-17); CALCIUM 8.3 mg/dL (8.4-10.2); CARBON DIOXIDE 19 mmol/L (22-30); CHLORIDE 104 mmol/L (98-107); GFR AFRICAN-AMERICAN > 60; GLUCOSE,RANDOM 226 mg/dL (65-105); POTASSIUM 3.6 MMOL/L (3.6-5.0); SODIUM 133 mmol/l (132-148)
[2016-10-09] MEDS: Lidocaine 5% Patch TD SCH (09:09)
[2016-10-09] MEDS: GlipiZIDE 10 mg SR Tab PO SCH (09:10)
[2016-10-09] MEDS: Enoxaparin 40 mg Syringe SC SCH (09:11)
[2016-10-09] MEDS: Insulin Lispro (humaLOG) 100 Units/ml Inj SC SCH ×4 (09:11→22:13)
--- NOTE | 2016-10-09 09:39 | CP.PCM.PN ---
Subjective - Date & Time of Evaluation Date of Evaluation: 10/09/16 Time of Evaluation: 09:33 - Subjective Subjective: PT FEELING IMPROVED HD STABLE NO COMPLAINTS Objective - Vital Signs/Intake and Output Vital Signs (last 24 hours): Temp Pulse Resp BP Pulse Ox 99.4 F 100 H 18 139/75 95 10/09/16 08:45 10/09/16 09:08 10/09/16 08:45 10/09/16 09:08 10/09/16 08:45 Intake and Output: 10/09/16 10/09/16 06:59 18:59 Intake Total 2049 Balance 2049 - Medications Medications: Current Medications Acetaminophen (Tylenol 325mg Tab) 650 mg PO Q4 PRN PRN Reason: Fever >100.4 F Last Admin: 10/09/16 04:31 Dose: 650 mg Amitriptyline HCl (Elavil) 50 mg PO HS [facility] Last Admin: 10/08/16 22:52 Dose: 50 mg Aspirin (Ecotrin) 81 mg PO DAILY [facility] Last Admin: 10/09/16 09:11 Dose: 81 mg Atorvastatin Calcium (Lipitor) 20 mg PO DAILY [facility] Last Admin: 10/09/16 09:09 Dose: 20 mg Cholecalciferol (Vitamin D) 5,000 iu PO MO [facility] Duloxetine HCl (Cymbalta) 60 mg PO DAILY [facility] Last Admin: 10/09/16 09:22 Dose: Not Given Enalapril Maleate (Vasotec) 5 mg PO DAILY [facility] Last Admin: 10/09/16 09:10 Dose: 5 mg Enoxaparin Sodium (Lovenox) 40 mg SC DAILY [facility] PRN Reason: Protocol Last Admin: 10/09/16 09:11 Dose: 40 mg Glipizide (Glucotrol Xl) 10 mg PO BRK [facility] Last Admin: 10/09/16 09:10 Dose: 10 mg Hydroxyzine Pamoate (Vistaril) 50 mg PO HS [facility] Last Admin: 10/08/16 23:00 Dose: Not Given Piperacillin Sod/Tazobactam (Sod 3.375 gm/ Sodium Chloride) 100 mls @ 100 mls/ hr IVPB Q8 [facility] Last Admin: 10/09/16 09:12 Dose: 100 mls/hr Vancomycin HCl 750 mg/ Sodium (Chloride) 250 mls @ 166.667 mls/hr IVPB Q12@0600 ,1800 [facility] Last Admin: 10/09/16 05:49 Dose: 166.667 mls/hr Insulin Human Lispro (Humalog) 0 units SC ACHS [facility] PRN Reason: Protocol Last Admin: 10/09/16 09:11 Dose: 3 units Ketorolac Tromethamine (Toradol) 30 mg IVP Q6 PRN PRN Reason: Pain, severe (8-10) Last Admin: 10/08/16 18:12 Dose: 30 mg Ketorolac Tromethamine (Toradol) 15 mg IVP Q6 PRN PRN Reason: Pain, moderate (4-7) Last Admin: 10/08/16 22:59 Dose: 15 mg Lidocaine (Lidoderm) 1 ea TD DAILY [facility] Last Admin: 10/09/16 09:09 Dose: 1 ea Lorazepam (Ativan) 1 mg PO Q12@0900,2100 [facility] Last Admin: 10/09/16 09:08 Dose: 1 mg Metoprolol Tartrate (Lopressor) 12.5 mg PO Q12 [facility] Last Admin: 10/09/16 09:08 Dose: 12.5 mg Ondansetron HCl (Zofran Inj) 4 mg IVP Q6 PRN PRN Reason: Nausea/Vomiting Zolpidem Tartrate (Ambien) 5 mg PO HS PRN PRN Reason: Sleep Last Admin: 10/08/16 21:27 Dose: 5 mg - Labs Labs: 10/09/16 06:00 10/09/16 06:00 - Constitutional Appears: Non-toxic, No Acute Distress - Head Exam Head Exam: ATRAUMATIC, NORMOCEPHALIC - Eye Exam Eye Exam: EOMI, Normal appearance, PERRL Pupil Exam: NORMAL ACCOMODATION - ENT Exam ENT Exam: Mucous Membranes Moist, Normal Oropharynx - Respiratory Exam Respiratory Exam: Clear to Ausculation Bilateral, NORMAL BREATHING PATTERN. absent: Accessory Muscle Use - Cardiovascular Exam Cardiovascular Exam: RRR, +S1, +S2 - GI/Abdominal Exam GI & Abdominal Exam: Soft, Normal Bowel Sounds. absent: Tenderness, Organomegaly - Extremities Exam Extremities Exam: Normal Capillary Refill. absent: Tenderness - Back Exam Back Exam: absent: CVA tenderness (L), CVA tenderness (R) - Neurological Exam Neurological Exam: Alert, Awake - Psychiatric Exam Psychiatric exam: Normal Affect, Normal Mood - Skin Skin Exam: Dry, Warm Assessment and Plan - Assessment and Plan (Free Text) Plan: 66 year old female PMH HTN HLD DM osteoarthritis, initially presented to the emergency room s/p mechanical fall, without head injury, for pain in hips and legs, which she states is moderate, nonradiating, no associated with any other sx. Patient usually receives injections from Dr. Huerta for pain. Pt HIP and PELVIS XR showed degenerative changes without any acute findings. Patient also complained of foul smelling urine, UA + LE and nit, WBC 20.1 pt tachycardic TMAX 102 in ER, pt started on Ceftriaxone. Pt to be admitted to [facility] for IV abx and further management. 1.Sepsis with gram positive cocci n clusters bacteremia and gram negative angelica UTI [facility] patient still febrile, tachycardic with elevated WBC but trending down from 20 k --17K Blood cx positive for gram positive cocci in clusters nd urine cx positive for E COLI Started vancomycin Iv added ZOSYN, D/C'd ROCEPHIN yesterday ID consult appreciated Continue IVF , Tylenol for fever and pain management 2.UTI on rocephin IV Follow up cultures identification and sensitivities 3.Intractable hip Pain pelvis and lumbar spine Xray showed no acute pathology Continue pain management 4.DM uncontrolled accuchecks,lispro sliding scale low, diabetic diet Follow up Hgb A1c cont glipizide 5.HTN stable cont vasotec 6.HLD cont statin 7.Depression/Anxiety continue ativan, elavil, cymbalta 8. DVt prophylaxis SCD , lovenox
--- NOTE | 2016-10-09 12:04 | CP.PCM.PN ---
Subjective - Date & Time of Evaluation Date of Evaluation: 10/09/16 Time of Evaluation: 12:04 - Subjective Subjective: Id Note- pt. seen and examined today. deneis any chills . denies any nausea. states her right leg pain is better today. denies any dysurea. Objective - Vital Signs/Intake and Output Vital Signs (last 24 hours): Temp Pulse Resp BP Pulse Ox 99.4 F 100 H 18 139/75 95 10/09/16 08:45 10/09/16 09:08 10/09/16 08:45 10/09/16 09:08 10/09/16 08:45 Intake and Output: 10/09/16 10/09/16 06:59 18:59 Intake Total 2049 Balance 2049 - Medications Medications: Current Medications Acetaminophen (Tylenol 325mg Tab) 650 mg PO Q4 PRN PRN Reason: Fever >100.4 F Last Admin: 10/09/16 04:31 Dose: 650 mg Amitriptyline HCl (Elavil) 50 mg PO HS [facility] Last Admin: 10/08/16 22:52 Dose: 50 mg Aspirin (Ecotrin) 81 mg PO DAILY [facility] Last Admin: 10/09/16 09:11 Dose: 81 mg Atorvastatin Calcium (Lipitor) 20 mg PO DAILY [facility] Last Admin: 10/09/16 09:09 Dose: 20 mg Cholecalciferol (Vitamin D) 5,000 iu PO MO [facility] Duloxetine HCl (Cymbalta) 60 mg PO DAILY [facility] Last Admin: 10/09/16 09:22 Dose: Not Given Enalapril Maleate (Vasotec) 5 mg PO DAILY [facility] Last Admin: 10/09/16 09:10 Dose: 5 mg Enoxaparin Sodium (Lovenox) 40 mg SC DAILY [facility] PRN Reason: Protocol Last Admin: 10/09/16 09:11 Dose: 40 mg Glipizide (Glucotrol Xl) 10 mg PO BRK [facility] Last Admin: 10/09/16 09:10 Dose: 10 mg Hydroxyzine Pamoate (Vistaril) 50 mg PO HS [facility] Last Admin: 10/08/16 23:00 Dose: Not Given Piperacillin Sod/Tazobactam (Sod 3.375 gm/ Sodium Chloride) 100 mls @ 100 mls/ hr IVPB Q8 [facility] Last Admin: 10/09/16 09:12 Dose: 100 mls/hr Vancomycin HCl 750 mg/ Sodium (Chloride) 250 mls @ 166.667 mls/hr IVPB Q12@0600 ,1800 [facility] Last Admin: 10/09/16 05:49 Dose: 166.667 mls/hr Insulin Human Lispro (Humalog) 0 units SC ACHS [facility] PRN Reason: Protocol Last Admin: 10/09/16 09:11 Dose: 3 units Ketorolac Tromethamine (Toradol) 30 mg IVP Q6 PRN PRN Reason: Pain, severe (8-10) Last Admin: 10/08/16 18:12 Dose: 30 mg Ketorolac Tromethamine (Toradol) 15 mg IVP Q6 PRN PRN Reason: Pain, moderate (4-7) Last Admin: 10/08/16 22:59 Dose: 15 mg Lidocaine (Lidoderm) 1 ea TD DAILY [facility] Last Admin: 10/09/16 09:09 Dose: 1 ea Lorazepam (Ativan) 1 mg PO Q12@0900,2100 [facility] Last Admin: 10/09/16 09:08 Dose: 1 mg Metoprolol Tartrate (Lopressor) 12.5 mg PO Q12 [facility] Last Admin: 10/09/16 09:08 Dose: 12.5 mg Ondansetron HCl (Zofran Inj) 4 mg IVP Q6 PRN PRN Reason: Nausea/Vomiting Zolpidem Tartrate (Ambien) 5 mg PO HS PRN PRN Reason: Sleep Last Admin: 10/08/16 21:27 Dose: 5 mg - Labs Labs: - Additional Findings Additional findings: - Constitutional Appears: No Acute Distress - Head Exam Head Exam: ATRAUMATIC - Eye Exam Eye Exam: EOMI, PERRL - ENT Exam ENT Exam: Normal Oropharynx - Neck Exam Neck exam: Positive for: Full Rom - Respiratory Exam Respiratory Exam: Clear to Auscultation Bilateral, NORMAL BREATHING PATTERN - Cardiovascular Exam Cardiovascular Exam: RRR, +S1, +S2 - GI/Abdominal Exam GI & Abdominal Exam: Normal Bowel Sounds, Soft Additional comments: NT, ND No CVA tenderness - Extremities Exam Additional comments: no edema B/L LE - Neurological Exam Neurological exam: Alert, Oriented x 3 Laboratory Results - last 72 hr 10/07/16 10/07/16 10/07/16 15:07 15:30 15:30 WBC 20.1 H D RBC 4.89 Hgb 12.1 Hct 38.4 MCV 78.6 L MCH 24.8 L MCHC 31.5 L RDW 13.5 Plt Count 211 D MPV 8.9 Neut % (Auto) 83.2 H Lymph % (Auto) 9.9 L [place] % (Auto) 6.8 Eos % (Auto) 0.0 Baso % (Auto) 0.1 Neut # 16.7 H Lymph # 2.0 [place] # 1.4 H Eos # 0.0 Baso # 0.0 Neutrophils % (Manual) 80 H Band Neutrophils % 1 Lymphocytes % (Manual) 11 L Monocytes % (Manual) 8 Platelet Estimate Normal Hypochromasia (manual) Slight Anisocytosis (manual) Slight Microcytosis (manual) Slight pO2 VBG pH VBG pCO2 VBG HCO3 VBG Total CO2 VBG O2 Sat (Calc) VBG Base Excess VBG Potassium Glucose Lactate FiO2 Sodium 132 Potassium 3.9 Chloride 98 Carbon Dioxide 23 Anion Gap 15 BUN 15 Creatinine 0.7 Est GFR ( Amer) > 60 Est GFR (Non-Af Amer) > 60 POC Glucose (mg/dL) 318 H Random Glucose 279 H Calcium 9.3 Total Bilirubin 0.8 AST 27 ALT 49 Alkaline Phosphatase 80 Total Protein 7.1 Albumin 3.7 Globulin 3.3 Albumin/Globulin Ratio 1.1 Venous Blood Potassium Urine Color Urine Clarity Urine pH Ur Specific [place] Urine Protein Urine Glucose (UA) Urine Ketones Urine Blood Urine Nitrate Urine Bilirubin Urine Urobilinogen Ur Leukocyte Esterase Urine RBC (Auto) Urine Microscopic WBC Ur Squamous Epith Cells Urine Bacteria 10/07/16 10/07/16 10/07/16 15:30 15:35 17:35 WBC RBC Hgb Hct MCV MCH MCHC RDW Plt Count MPV Neut % (Auto) Lymph % (Auto) [place] % (Auto) Eos % (Auto) Baso % (Auto) Neut # Lymph # [place] # Eos # Baso # Neutrophils % (Manual) Band Neutrophils % Lymphocytes % (Manual) Monocytes % (Manual) Platelet Estimate Hypochromasia (manual) Anisocytosis (manual) Microcytosis (manual) pO2 46 VBG pH 7.46 H VBG pCO2 35 L VBG HCO3 25.7 VBG Total CO2 26.0 VBG O2 Sat (Calc) 89.2 H VBG Base Excess 1.4 VBG Potassium 3.9 Glucose 300 H Lactate 1.5 FiO2 21.0 Sodium 131.0 L Potassium Chloride 98.0 Carbon Dioxide Anion Gap BUN Creatinine Est GFR ( Amer) Est GFR (Non-Af Amer) POC Glucose (mg/dL) 265 H Random Glucose Calcium Total Bilirubin AST ALT Alkaline Phosphatase Total Protein Albumin Globulin Albumin/Globulin Ratio Venous Blood Potassium 3.9 Urine Color Yellow Urine Clarity Cloudy Urine pH 5.0 Ur Specific [place] 1.023 Urine Protein 100 Urine Glucose (UA) >=500 Urine Ketones 20 Urine Blood Small Urine Nitrate Positive H Urine Bilirubin Negative Urine Urobilinogen 0.2-1.0 Ur Leukocyte Esterase Large Urine RBC (Auto) 13 H Urine Microscopic WBC 353 H Ur Squamous Epith Cells 18 H Urine Bacteria Many H 10/07/16 10/08/16 10/08/16 21:22 05:44 08:39 WBC 17.2 H RBC 4.96 Hgb 12.4 Hct 39.2 MCV 79.0 L MCH 25.1 L MCHC 31.8 L RDW 13.5 Plt Count 200 MPV 9.0 Neut % (Auto) 86.7 H Lymph % (Auto) 7.0 L [place] % (Auto) 6.2 Eos % (Auto) 0.0 Baso % (Auto) 0.1 Neut # 14.9 H Lymph # 1.2 [place] # 1.1 H Eos # 0.0 Baso # 0.0 Neutrophils % (Manual) Band Neutrophils % Lymphocytes % (Manual) Monocytes % (Manual) Platelet Estimate Hypochromasia (manual) Anisocytosis (manual) Microcytosis (manual) pO2 VBG pH VBG pCO2 VBG HCO3 VBG Total CO2 VBG O2 Sat (Calc) VBG Base Excess VBG Potassium Glucose Lactate FiO2 Sodium Potassium Chloride Carbon Dioxide Anion Gap BUN Creatinine Est GFR ( Amer) Est GFR (Non-Af Amer) POC Glucose (mg/dL) 273 H 277 H Random Glucose Calcium Total Bilirubin AST ALT Alkaline Phosphatase Total Protein Albumin Globulin Albumin/Globulin Ratio Venous Blood Potassium Urine Color Urine Clarity Urine pH Ur Specific [place] Urine Protein Urine Glucose (UA) Urine Ketones Urine Blood Urine Nitrate Urine Bilirubin Urine Urobilinogen Ur Leukocyte Esterase Urine RBC (Auto) Urine Microscopic WBC Ur Squamous Epith Cells Urine Bacteria 10/08/16 10/08/16 10/08/16 08:39 11:32 16:20 WBC RBC Hgb Hct MCV MCH MCHC RDW Plt Count MPV Neut % (Auto) Lymph % (Auto) [place] % (Auto) Eos % (Auto) Baso % (Auto) Neut # Lymph # [place] # Eos # Baso # Neutrophils % (Manual) Band Neutrophils % Lymphocytes % (Manual) Monocytes % (Manual) Platelet Estimate Hypochromasia (manual) Anisocytosis (manual) Microcytosis (manual) pO2 VBG pH VBG pCO2 VBG HCO3 VBG Total CO2 VBG O2 Sat (Calc) VBG Base Excess VBG Potassium Glucose Lactate FiO2 Sodium 136 Potassium 4.1 Chloride 103 Carbon Dioxide 22 Anion Gap 14 BUN 13 Creatinine 0.6 L Est GFR ( Amer) > 60 Est GFR (Non-Af Amer) > 60 POC Glucose (mg/dL) 281 H 301 H Random Glucose 259 H Calcium 8.7 Total Bilirubin AST ALT Alkaline Phosphatase Total Protein Albumin Globulin Albumin/Globulin Ratio Venous Blood Potassium Urine Color Urine Clarity Urine pH Ur Specific [place] Urine Protein Urine Glucose (UA) Urine Ketones Urine Blood Urine Nitrate Urine Bilirubin Urine Urobilinogen Ur Leukocyte Esterase Urine RBC (Auto) Urine Microscopic WBC Ur Squamous Epith Cells Urine Bacteria 10/08/16 10/09/16 10/09/16 22:04 05:22 06:00 WBC 15.5 H RBC 4.42 Hgb 11.1 L Hct 34.7 MCV 78.6 L MCH 25.0 L MCHC 31.8 L RDW 13.3 Plt Count 187 MPV 9.5 Neut % (Auto) 78.0 H Lymph % (Auto) 13.8 L [place] % (Auto) 7.8 Eos % (Auto) 0.1 Baso % (Auto) 0.3 Neut # 12.1 H Lymph # 2.1 [place] # 1.2 H Eos # 0.0 Baso # 0.0 Neutrophils % (Manual) Band Neutrophils % Lymphocytes % (Manual) Monocytes % (Manual) Platelet Estimate Hypochromasia (manual) Anisocytosis (manual) Microcytosis (manual) pO2 VBG pH VBG pCO2 VBG HCO3 VBG Total CO2 VBG O2 Sat (Calc) VBG Base Excess VBG Potassium Glucose Lactate FiO2 Sodium Potassium Chloride Carbon Dioxide Anion Gap BUN Creatinine Est GFR ( Amer) Est GFR (Non-Af Amer) POC Glucose (mg/dL) 184 H 251 H Random Glucose Calcium Total Bilirubin AST ALT Alkaline Phosphatase Total Protein Albumin Globulin Albumin/Globulin Ratio Venous Blood Potassium Urine Color Urine Clarity Urine pH Ur Specific [place] Urine Protein Urine Glucose (UA) Urine Ketones Urine Blood Urine Nitrate Urine Bilirubin Urine Urobilinogen Ur Leukocyte Esterase Urine RBC (Auto) Urine Microscopic WBC Ur Squamous Epith Cells Urine Bacteria 10/09/16 10/09/16 06:00 11:53 WBC RBC Hgb Hct MCV MCH MCHC RDW Plt Count MPV Neut % (Auto) Lymph % (Auto) [place] % (Auto) Eos % (Auto) Baso % (Auto) Neut # Lymph # [place] # Eos # Baso # Neutrophils % (Manual) Band Neutrophils % Lymphocytes % (Manual) Monocytes % (Manual) Platelet Estimate Hypochromasia (manual) Anisocytosis (manual) Microcytosis (manual) pO2 VBG pH VBG pCO2 VBG HCO3 VBG Total CO2 VBG O2 Sat (Calc) VBG Base Excess VBG Potassium Glucose Lactate FiO2 Sodium 133 Potassium 3.6 Chloride 104 Carbon Dioxide 19 L Anion Gap 14 BUN 14 Creatinine 0.6 L Est GFR ( Amer) > 60 Est GFR (Non-Af Amer) > 60 POC Glucose (mg/dL) 302 H Random Glucose 226 H Calcium 8.3 L Total Bilirubin AST ALT Alkaline Phosphatase Total Protein Albumin Globulin Albumin/Globulin Ratio Venous Blood Potassium Urine Color Urine Clarity Urine pH Ur Specific [place] Urine Protein Urine Glucose (UA) Urine Ketones Urine Blood Urine Nitrate Urine Bilirubin Urine Urobilinogen Ur Leukocyte Esterase Urine RBC (Auto) Urine Microscopic WBC Ur Squamous Epith Cells Urine Bacteria Microbiology 10/07/16 15:30 Blood Blood Culture - Final Gram Positive Cocci 10/07/16 15:30 Blood Gram Stain - Final 10/07/16 15:15 Blood S.aureus & Coag-Neg Staph PNA FISH - Final 10/07/16 15:15 Blood Blood Culture - Preliminary Gram Positive Cocci 10/07/16 15:15 Blood Gram Stain - Final 10/07/16 15:30 Urine,Clean Catch Urine Culture - Final Escherichia Coli Assessment and Plan (1) Fever Status: Acute (2) UTI (urinary tract infection) Status: Acute (3) DM2 (diabetes mellitus, type 2) Status: Chronic (4) Bacteremia due to Gram-positive bacteria Status: Acute - Assessment and Plan (Free Text) Assessment: A/P- 66 year old female with HTN, DM II admitted with UTI and found to also have bacteremia. low grade fever this am leukocytosis slightly lower today. Blood cx- staph aureus prelim x 2 urine cx- E.Coli NOt ESBL sensitive to zosyn plan- check echo rule out any vegetations. await ID and sensitivity of the staph aureaus bactermia. for now continue with IV vancomycin for staph bacteremia day #2. keep trough <20. continue with IV zosyn for e.coli UTI day #2. check 2 more blood cx.
[2016-10-10] MEDS: Piperacillin/Tazobact 3.375 GM in Sodium Chloride 0.9% 100 ML IVPB SCH ×3 (00:48→16:50)
[2016-10-10 08:11] LABS: BASO # 0.1 K/uL (0.0-0.2); BASO % 0.9 % (0.0-2.0); EOS # 0.1 K/uL (0.0-0.7); EOS % 0.5 % (0.0-4.0); HEMATOCRIT 34.7 % (34.0-47.0); LYMPH # 2.6 K/uL (1.0-4.3); LYMPH % 17.2 % (20.0-40.0); MEAN CELL VOLUME 78.2 fl (81.0-99.0); MEAN CORPUSCULAR HEMOGLOBIN 25.2 pg (27.0-31.0); MEAN CORPUSCULAR HGB CONC 32.3 g/dL (33.0-37.0); MEAN PLATELET VOLUME 9.7 fl (7.2-11.7); MONO # 1.3 K/uL (0.0-0.8); MONO % 8.3 % (0.0-10.0); NEUT % 73.1 % (50.0-75.0); RED CELL DISTRIBUTION WIDTH 13.5 % (11.5-14.5); WHITE BLOOD COUNT 15.1 K/uL (4.8-10.8)
[2016-10-10] MEDS: GlipiZIDE 10 mg SR Tab PO SCH (08:59)
[2016-10-10] MEDS: Enoxaparin 40 mg Syringe SC SCH (08:59)
[2016-10-10] MEDS: Insulin Lispro (humaLOG) 100 Units/ml Inj SC SCH ×4 (09:00→22:10)
[2016-10-10] MEDS: Lidocaine 5% Patch TD SCH (09:01)
--- NOTE | 2016-10-10 09:43 | CARD ---
APPROVED REPORT EXAM: Two-dimensional and M-mode echocardiogram with Doppler and color Doppler. Other Information Quality : GoodRhythm : NSR INDICATION Infection: 2D DIMENSIONS IVSd0.92 (0.7-1.1cm)LVDd4.84 (3.9-5.9cm) LVOT Diameter2.57 (1.8-2.4cm)PWd0.90 (0.7-1.1cm) IVSs1.39 (0.8-1.2cm)LVDs3.42 (2.5-4.0cm) FS (%) 29.3 %PWs1.14 (0.8-1.2cm) M-Mode DIMENSIONS Left Atrium (MM)3.50 (2.5-4.0cm)IVSd1.21 (0.7-1.1cm) Aortic Root2.85 (2.2-3.7cm)LVDd4.44 (4.0-5.6cm) Aortic Cusp Exc.1.53 (1.5-2.0cm)PWd0.88 (0.7-1.1cm) IVSs1.47 cmFS (%) 24 % LVDs3.38 (2.0-3.8cm)PWs1.21 cm Mitral Valve MV E Wvieqlev05.4cm/sMV DECEL [id number] A Vxruefeo39.1cm/s MV [id number]/A ratio1.1MVA (PHT)4.11cm2 TDI E/Lateral E'0.0E/Medial E'0.0 Pulmonary Valve PV Peak Lougqxll31.9cm/s Tricuspid Valve TR Peak [id number]/sRAP [id number] Peak Gr.20mmHg [id number] LEFT VENTRICLE The left ventricle is normal size. There is normal left ventricular wall thickness. Left ventricle systolic function is normal. The Ejection Fraction is 55-60%. There is normal LV segmental wall motion. Transmitral Doppler flow pattern is Grade I-abnormal relaxation pattern. RIGHT VENTRICLE The right ventricle is normal size. There is normal right ventricular wall thickness. The right ventricular systolic function is normal. ATRIA The left atrium size is normal. The right atrium size is normal. AORTIC VALVE The aortic valve is normal in structure and function. No aortic regurgitation is present. There is no aortic valvular stenosis. There is no aortic valvular vegetation. MITRAL VALVE The mitral valve is normal in structure. There is no evidence of mitral valve prolapse. There is no mitral valve stenosis. Mitral regurgitation is trace. No mitral valve vegetations seen. TRICUSPID VALVE The tricuspid valve is normal in structure. There is trace to mild tricuspid regurgitation. Right ventricular systolic pressure is estimated at 30 mmHg. There is no pulmonary hypertension. There is no tricuspid valve vegetation. PULMONIC VALVE The pulmonary valve is normal in structure and function. There is no pulmonic valvular regurgitation. GREAT VESSELS The aortic root is normal in size. The IVC is normal in size and collapses >50% with inspiration. PERICARDIAL EFFUSION The pericardium appears normal. <Conclusion> The left ventricle is normal size. There is normal left ventricular wall thickness. There is normal LV segmental wall motion. Left ventricle systolic function is normal. The Ejection Fraction is 55-60%. Transmitral Doppler flow pattern is Grade I-abnormal relaxation pattern. No vegetations seen on this TTE.
--- NOTE | 2016-10-10 12:32 | CP.PCM.PN ---
Subjective - Date & Time of Evaluation Date of Evaluation: 10/10/16 Time of Evaluation: 12:29 - Subjective Subjective: pt doing well improving clinically no complaints no dyspnea no cp no calf tenderness HD stable NAD Objective - Vital Signs/Intake and Output Vital Signs (last 24 hours): Temp Pulse Resp BP Pulse Ox 99.4 F 79 20 145/78 95 10/10/16 09:03 10/10/16 09:14 10/10/16 09:03 10/10/16 09:14 10/10/16 09:03 GEN: WDWN, ALERT, COOPERATIVE HEENT: NCAT, PERRL, EOMI HEART: +S1+S2, RRR NO MRG LUNG: CTAB, NO WRR ABD: SOFT BSX4 NT ND NO HSM NO MASS EXT: WARM, WELL PERFUSED NEURO: AA0X3, STRENGTH AND SENSATION EQUAL AND BILATERAL SKIN: WARM DRY PSYCH: NORMAL MOOD NORMAL AFFECT - Medications Medications: Current Medications Acetaminophen (Tylenol 325mg Tab) 650 mg PO Q4 PRN PRN Reason: Fever >100.4 F Last Admin: 10/10/16 05:36 Dose: 650 mg Amitriptyline HCl (Elavil) 50 mg PO HS [facility] Last Admin: 10/09/16 22:06 Dose: 50 mg Aspirin (Ecotrin) 81 mg PO DAILY [facility] Last Admin: 10/10/16 09:01 Dose: 81 mg Atorvastatin Calcium (Lipitor) 20 mg PO DAILY [facility] Last Admin: 10/10/16 09:00 Dose: 20 mg Cholecalciferol (Vitamin D) 5,000 iu PO MO [facility] Duloxetine HCl (Cymbalta) 60 mg PO DAILY [facility] Last Admin: 10/10/16 08:53 Dose: Not Given Enalapril Maleate (Vasotec) 5 mg PO DAILY [facility] Last Admin: 10/10/16 09:14 Dose: 5 mg Enoxaparin Sodium (Lovenox) 40 mg SC DAILY [facility] PRN Reason: Protocol Last Admin: 10/10/16 08:59 Dose: 40 mg Glipizide (Glucotrol Xl) 10 mg PO BRK [facility] Last Admin: 10/10/16 08:59 Dose: 10 mg Hydroxyzine Pamoate (Vistaril) 50 mg PO HS [facility] Last Admin: 10/09/16 22:06 Dose: 50 mg Piperacillin Sod/Tazobactam (Sod 3.375 gm/ Sodium Chloride) 100 mls @ 100 mls/ hr IVPB Q8 [facility] Last Admin: 10/10/16 09:02 Dose: 100 mls/hr Vancomycin HCl 750 mg/ Sodium (Chloride) 250 mls @ 166.667 mls/hr IVPB Q12@0600 ,1800 [facility] Last Admin: 10/10/16 05:27 Dose: 166.667 mls/hr Insulin Human Lispro (Humalog) 0 units SC ACHS [facility] PRN Reason: Protocol Last Admin: 10/10/16 09:00 Dose: 2 units Ketorolac Tromethamine (Toradol) 30 mg IVP Q6 PRN PRN Reason: Pain, severe (8-10) Last Admin: 10/09/16 23:12 Dose: 30 mg Ketorolac Tromethamine (Toradol) 15 mg IVP Q6 PRN PRN Reason: Pain, moderate (4-7) Last Admin: 10/10/16 05:38 Dose: 15 mg Lidocaine (Lidoderm) 1 ea TD DAILY [facility] Last Admin: 10/10/16 09:01 Dose: 1 ea Lorazepam (Ativan) 1 mg PO Q12@0900,2100 [facility] Last Admin: 10/10/16 09:14 Dose: 1 mg Metoprolol Tartrate (Lopressor) 12.5 mg PO Q12 [facility] Last Admin: 10/10/16 09:14 Dose: 12.5 mg Ondansetron HCl (Zofran Inj) 4 mg IVP Q6 PRN PRN Reason: Nausea/Vomiting Zolpidem Tartrate (Ambien) 5 mg PO HS PRN PRN Reason: Sleep Last Admin: 10/08/16 21:27 Dose: 5 mg - Labs Labs: 10/10/16 06:00 10/09/16 06:00 Assessment and Plan - Assessment and Plan (Free Text) Plan: 66 year old female PMH HTN HLD DM osteoarthritis, initially presented to the emergency room s/p mechanical fall, without head injury, for pain in hips and legs, which she states is moderate, nonradiating, no associated with any other sx. Patient usually receives injections from Dr. Huerta for pain. Pt HIP and PELVIS XR showed degenerative changes without any acute findings. Patient also complained of foul smelling urine, UA + LE and nit, WBC 20.1 pt tachycardic TMAX 102 in ER, pt started on Ceftriaxone. Pt to be admitted to [facility] for IV abx and further management. 1.Sepsis with gram positive cocci n clusters bacteremia and gram negative angelica UTI ECOLI patient still febrile, tachycardic with elevated WBC but trending down from 20 k --15K Blood cx positive for gram positive cocci in clusters and urine cx positive for E COLI 10/07 BLOOD CX staph aureus sensitive to Vancomycin 10/07 URINE CX ECOLI sensitive to Zosyn 10/09 BLOOD CX prelim gm+ cocci Cont Vanc and Zosyn (day 3) ID consult appreciated Continue IVF , Tylenol for fever and pain management ECHO to check for vegetations, and check 2 more BC per ID 2.UTI on Zosyn IV Follow up cultures as above identification and sensitivities 3.Intractable hip Pain pelvis and lumbar spine Xray showed no acute pathology Continue pain management 4.DM uncontrolled accuchecks,lispro sliding scale low, diabetic diet Follow up Hgb A1c cont glipizide 5.HTN stable cont vasotec 6.HLD cont statin 7.Depression/Anxiety continue ativan, elavil, cymbalta 8. DVt prophylaxis SCD , lovenox
--- NOTE | 2016-10-10 12:32 | CP.PCM.PN ---
Subjective - Date & Time of Evaluation Date of Evaluation: 10/10/16 Time of Evaluation: 13:30 - Subjective Subjective: ID Note- Pt. seen and examined today with her family at her bedside. Pt. denies any chills but continues to have temps. she also continues to complain of pain in her right hip/thigh region. as per pt's daughter she was getting injections in the right hip region for pain by her PMD . no metals in her body. also as per pt's daughter pt. has maddi coughing thick phlegm for few days. Objective - Vital Signs/Intake and Output Vital Signs (last 24 hours): Temp Pulse Resp BP Pulse Ox 99.4 F 79 20 145/78 95 10/10/16 09:03 10/10/16 09:14 10/10/16 09:03 10/10/16 09:14 10/10/16 09:03 - Medications Medications: Current Medications Acetaminophen (Tylenol 325mg Tab) 650 mg PO Q4 PRN PRN Reason: Fever >100.4 F Last Admin: 10/10/16 05:36 Dose: 650 mg Amitriptyline HCl (Elavil) 50 mg PO HS [facility] Last Admin: 10/09/16 22:06 Dose: 50 mg Aspirin (Ecotrin) 81 mg PO DAILY [facility] Last Admin: 10/10/16 09:01 Dose: 81 mg Atorvastatin Calcium (Lipitor) 20 mg PO DAILY [facility] Last Admin: 10/10/16 09:00 Dose: 20 mg Cholecalciferol (Vitamin D) 5,000 iu PO MO [facility] Duloxetine HCl (Cymbalta) 60 mg PO DAILY [facility] Last Admin: 10/10/16 08:53 Dose: Not Given Enalapril Maleate (Vasotec) 5 mg PO DAILY [facility] Last Admin: 10/10/16 09:14 Dose: 5 mg Enoxaparin Sodium (Lovenox) 40 mg SC DAILY [facility] PRN Reason: Protocol Last Admin: 10/10/16 08:59 Dose: 40 mg Glipizide (Glucotrol Xl) 10 mg PO BRK [facility] Last Admin: 10/10/16 08:59 Dose: 10 mg Hydroxyzine Pamoate (Vistaril) 50 mg PO HS [facility] Last Admin: 10/09/16 22:06 Dose: 50 mg Piperacillin Sod/Tazobactam (Sod 3.375 gm/ Sodium Chloride) 100 mls @ 100 mls/ hr IVPB Q8 [facility] Last Admin: 10/10/16 09:02 Dose: 100 mls/hr Vancomycin HCl 750 mg/ Sodium (Chloride) 250 mls @ 166.667 mls/hr IVPB Q12@0600 ,1800 [facility] Last Admin: 10/10/16 05:27 Dose: 166.667 mls/hr Insulin Human Lispro (Humalog) 0 units SC ACHS [facility] PRN Reason: Protocol Last Admin: 10/10/16 09:00 Dose: 2 units Ketorolac Tromethamine (Toradol) 30 mg IVP Q6 PRN PRN Reason: Pain, severe (8-10) Last Admin: 10/09/16 23:12 Dose: 30 mg Ketorolac Tromethamine (Toradol) 15 mg IVP Q6 PRN PRN Reason: Pain, moderate (4-7) Last Admin: 10/10/16 05:38 Dose: 15 mg Lidocaine (Lidoderm) 1 ea TD DAILY [facility] Last Admin: 10/10/16 09:01 Dose: 1 ea Lorazepam (Ativan) 1 mg PO Q12@0900,2100 [facility] Last Admin: 10/10/16 09:14 Dose: 1 mg Metoprolol Tartrate (Lopressor) 12.5 mg PO Q12 [facility] Last Admin: 10/10/16 09:14 Dose: 12.5 mg Ondansetron HCl (Zofran Inj) 4 mg IVP Q6 PRN PRN Reason: Nausea/Vomiting Zolpidem Tartrate (Ambien) 5 mg PO HS PRN PRN Reason: Sleep Last Admin: 10/08/16 21:27 Dose: 5 mg - Labs Labs: - Additional Findings Additional findings: - Constitutional Appears: No Acute Distress - Head Exam Head Exam: ATRAUMATIC - Eye Exam Eye Exam: EOMI, PERRL - ENT Exam ENT Exam: Normal Oropharynx - Neck Exam Neck exam: Positive for: Full Rom - Respiratory Exam Respiratory Exam: Clear to Auscultation Bilateral, NORMAL BREATHING PATTERN - Cardiovascular Exam Cardiovascular Exam: RRR, +S1, +S2 - GI/Abdominal Exam GI & Abdominal Exam: Normal Bowel Sounds, Soft Additional comments: NT, ND No CVA tenderness - Extremities Exam Additional comments: no edema B/L LE slight pain in right hip region - Neurological Exam Neurological exam: Alert, Oriented x 3 Laboratory Results - last 72 hr 10/07/16 10/07/16 10/07/16 15:07 15:30 15:30 WBC RBC Hgb Hct MCV MCH MCHC RDW Plt Count MPV Neut % (Auto) Lymph % (Auto) [place] % (Auto) Eos % (Auto) Baso % (Auto) Neut # Lymph # [place] # Eos # Baso # Neutrophils % (Manual) 80 H Band Neutrophils % 1 Lymphocytes % (Manual) 11 L Monocytes % (Manual) 8 Platelet Estimate Normal Hypochromasia (manual) Slight Anisocytosis (manual) Slight Microcytosis (manual) Slight Sodium Potassium Chloride Carbon Dioxide Anion Gap BUN Creatinine Est GFR ( Amer) Est GFR (Non-Af Amer) POC Glucose (mg/dL) 318 H Random Glucose Calcium Urine Color Yellow Urine Clarity Cloudy Urine pH 5.0 Ur Specific [place] 1.023 Urine Protein 100 Urine Glucose (UA) >=500 Urine Ketones 20 Urine Blood Small Urine Nitrate Positive H Urine Bilirubin Negative Urine Urobilinogen 0.2-1.0 Ur Leukocyte Esterase Large Urine RBC (Auto) 13 H Urine Microscopic WBC 353 H Ur Squamous Epith Cells 18 H Urine Bacteria Many H Vancomycin Trough 10/07/16 10/07/16 10/08/16 17:35 21:22 05:44 WBC RBC Hgb Hct MCV MCH MCHC RDW Plt Count MPV Neut % (Auto) Lymph % (Auto) [place] % (Auto) Eos % (Auto) Baso % (Auto) Neut # Lymph # [place] # Eos # Baso # Neutrophils % (Manual) Band Neutrophils % Lymphocytes % (Manual) Monocytes % (Manual) Platelet Estimate Hypochromasia (manual) Anisocytosis (manual) Microcytosis (manual) Sodium Potassium Chloride Carbon Dioxide Anion Gap BUN Creatinine Est GFR ( Amer) Est GFR (Non-Af Amer) POC Glucose (mg/dL) 265 H 273 H 277 H Random Glucose Calcium Urine Color Urine Clarity Urine pH Ur Specific [place] Urine Protein Urine Glucose (UA) Urine Ketones Urine Blood Urine Nitrate Urine Bilirubin Urine Urobilinogen Ur Leukocyte Esterase Urine RBC (Auto) Urine Microscopic WBC Ur Squamous Epith Cells Urine Bacteria Vancomycin Trough 10/08/16 10/08/16 10/08/16 08:39 08:39 11:32 WBC 17.2 H RBC 4.96 Hgb 12.4 Hct 39.2 MCV 79.0 L MCH 25.1 L MCHC 31.8 L RDW 13.5 Plt Count 200 MPV 9.0 Neut % (Auto) 86.7 H Lymph % (Auto) 7.0 L [place] % (Auto) 6.2 Eos % (Auto) 0.0 Baso % (Auto) 0.1 Neut # 14.9 H Lymph # 1.2 [place] # 1.1 H Eos # 0.0 Baso # 0.0 Neutrophils % (Manual) Band Neutrophils % Lymphocytes % (Manual) Monocytes % (Manual) Platelet Estimate Hypochromasia (manual) Anisocytosis (manual) Microcytosis (manual) Sodium 136 Potassium 4.1 Chloride 103 Carbon Dioxide 22 Anion Gap 14 BUN 13 Creatinine 0.6 L Est GFR ( Amer) > 60 Est GFR (Non-Af Amer) > 60 POC Glucose (mg/dL) 281 H Random Glucose 259 H Calcium 8.7 Urine Color Urine Clarity Urine pH Ur Specific [place] Urine Protein Urine Glucose (UA) Urine Ketones Urine Blood Urine Nitrate Urine Bilirubin Urine Urobilinogen Ur Leukocyte Esterase Urine RBC (Auto) Urine Microscopic WBC Ur Squamous Epith Cells Urine Bacteria Vancomycin Trough 10/08/16 10/08/16 10/09/16 16:20 22:04 05:22 WBC RBC Hgb Hct MCV MCH MCHC RDW Plt Count MPV Neut % (Auto) Lymph % (Auto) [place] % (Auto) Eos % (Auto) Baso % (Auto) Neut # Lymph # [place] # Eos # Baso # Neutrophils % (Manual) Band Neutrophils % Lymphocytes % (Manual) Monocytes % (Manual) Platelet Estimate Hypochromasia (manual) Anisocytosis (manual) Microcytosis (manual) Sodium Potassium Chloride Carbon Dioxide Anion Gap BUN Creatinine Est GFR ( Amer) Est GFR (Non-Af Amer) POC Glucose (mg/dL) 301 H 184 H 251 H Random Glucose Calcium Urine Color Urine Clarity Urine pH Ur Specific [place] Urine Protein Urine Glucose (UA) Urine Ketones Urine Blood Urine Nitrate Urine Bilirubin Urine Urobilinogen Ur Leukocyte Esterase Urine RBC (Auto) Urine Microscopic WBC Ur Squamous Epith Cells Urine Bacteria Vancomycin Trough 10/09/16 10/09/16 10/09/16 06:00 06:00 11:53 WBC 15.5 H RBC 4.42 Hgb 11.1 L Hct 34.7 MCV 78.6 L MCH 25.0 L MCHC 31.8 L RDW 13.3 Plt Count 187 MPV 9.5 Neut % (Auto) 78.0 H Lymph % (Auto) 13.8 L [place] % (Auto) 7.8 Eos % (Auto) 0.1 Baso % (Auto) 0.3 Neut # 12.1 H Lymph # 2.1 [place] # 1.2 H Eos # 0.0 Baso # 0.0 Neutrophils % (Manual) Band Neutrophils % Lymphocytes % (Manual) Monocytes % (Manual) Platelet Estimate Hypochromasia (manual) Anisocytosis (manual) Microcytosis (manual) Sodium 133 Potassium 3.6 Chloride 104 Carbon Dioxide 19 L Anion Gap 14 BUN 14 Creatinine 0.6 L Est GFR ( Amer) > 60 Est GFR (Non-Af Amer) > 60 POC Glucose (mg/dL) 302 H Random Glucose 226 H Calcium 8.3 L Urine Color Urine Clarity Urine pH Ur Specific [place] Urine Protein Urine Glucose (UA) Urine Ketones Urine Blood Urine Nitrate Urine Bilirubin Urine Urobilinogen Ur Leukocyte Esterase Urine RBC (Auto) Urine Microscopic WBC Ur Squamous Epith Cells Urine Bacteria Vancomycin Trough 10/09/16 10/09/16 10/10/16 17:23 22:10 05:42 WBC RBC Hgb Hct MCV MCH MCHC RDW Plt Count MPV Neut % (Auto) Lymph % (Auto) [place] % (Auto) Eos % (Auto) Baso % (Auto) Neut # Lymph # [place] # Eos # Baso # Neutrophils % (Manual) Band Neutrophils % Lymphocytes % (Manual) Monocytes % (Manual) Platelet Estimate Hypochromasia (manual) Anisocytosis (manual) Microcytosis (manual) Sodium Potassium Chloride Carbon Dioxide Anion Gap BUN Creatinine Est GFR ( Amer) Est GFR (Non-Af Amer) POC Glucose (mg/dL) 216 H 290 H 262 H Random Glucose Calcium Urine Color Urine Clarity Urine pH Ur Specific [place] Urine Protein Urine Glucose (UA) Urine Ketones Urine Blood Urine Nitrate Urine Bilirubin Urine Urobilinogen Ur Leukocyte Esterase Urine RBC (Auto) Urine Microscopic WBC Ur Squamous Epith Cells Urine Bacteria Vancomycin Trough 10/10/16 10/10/16 10/10/16 06:00 06:00 11:35 WBC 15.1 H RBC 4.44 Hgb 11.2 L Hct 34.7 MCV 78.2 L MCH 25.2 L MCHC 32.3 L RDW 13.5 Plt Count 206 MPV 9.7 Neut % (Auto) 73.1 Lymph % (Auto) 17.2 L [place] % (Auto) 8.3 Eos % (Auto) 0.5 Baso % (Auto) 0.9 Neut # 11.0 H Lymph # 2.6 [place] # 1.3 H Eos # 0.1 Baso # 0.1 Neutrophils % (Manual) Band Neutrophils % Lymphocytes % (Manual) Monocytes % (Manual) Platelet Estimate Hypochromasia (manual) Anisocytosis (manual) Microcytosis (manual) Sodium Potassium Chloride Carbon Dioxide Anion Gap BUN Creatinine Est GFR ( Amer) Est GFR (Non-Af Amer) POC Glucose (mg/dL) 278 H Random Glucose Calcium Urine Color Urine Clarity Urine pH Ur Specific [place] Urine Protein Urine Glucose (UA) Urine Ketones Urine Blood Urine Nitrate Urine Bilirubin Urine Urobilinogen Ur Leukocyte Esterase Urine RBC (Auto) Urine Microscopic WBC Ur Squamous Epith Cells Urine Bacteria Vancomycin Trough 9.7 Microbiology 10/09/16 07:00 Blood-Venous S.aureus & Coag-Neg Staph PNA FISH - Final 10/09/16 07:00 Blood-Venous Blood Culture - Preliminary Gram Positive Cocci 10/09/16 07:00 Blood-Venous Gram Stain - Final 10/07/16 15:15 Blood S.aureus & Coag-Neg Staph PNA FISH - Final 10/07/16 15:15 Blood Blood Culture - Final Staphylococcus Aureus 10/07/16 15:15 Blood Gram Stain - Final 10/07/16 15:30 Blood Blood Culture - Final Gram Positive Cocci 10/07/16 15:30 Blood Gram Stain - Final 10/07/16 15:30 Urine,Clean Catch Urine Culture - Final Escherichia Coli Assessment and Plan (1) Fever Status: Acute (2) UTI (urinary tract infection) Status: Acute (3) DM2 (diabetes mellitus, type 2) Status: Chronic (4) Bacteremia due to Gram-positive bacteria Status: Acute - Assessment and Plan (Free Text) Assessment: A/P- 66 year old female with HTN, DM II admitted with UTI and found to also have bacteremia. continues to have fever spikes. leukocytosis resolved. Blood cx- MSSA x2 from 10/07/2016 and blood cx from 10/09/2016- prelim GPC urine cx- E.Coli NOt ESBL sensitive to zosyn TTE- no vegetations as per report. plan- for now continue with IV vancomycin for staph bacteremia day #3. keep trough <20. continue with IV zosyn for e.coli UTI day #3. check 2 more blood cx. check right hip thigh CT rule out any abscess or collections. may need repeat CXR or chest CT as well. if all above negative and if patietn continues to have fever and positive blood cx despite being on IV vancomycin may need NIKA at that time. all above d/w patient and her her family and they verbalize full understanding of all above.
[2016-10-11] MEDS: Piperacillin/Tazobact 3.375 GM in Sodium Chloride 0.9% 100 ML IVPB SCH ×3 (00:15→16:31)
[2016-10-11] MEDS: GlipiZIDE 10 mg SR Tab PO SCH (08:52)
[2016-10-11] MEDS: Insulin Lispro (humaLOG) 100 Units/ml Inj SC SCH ×4 (09:52→22:00)
[2016-10-11] MEDS: Enoxaparin 40 mg Syringe SC SCH (09:53)
[2016-10-11] MEDS: Lidocaine 5% Patch TD SCH (09:53)
--- NOTE | 2016-10-11 12:23 | CP.PCM.PN ---
Subjective - Date & Time of Evaluation Date of Evaluation: 10/11/16 Time of Evaluation: 12:22 - Subjective Subjective: Pt seen and examined at bedside. No complaints, states she feels mildly improved. Denies CP, Dyspnea, Calftenderness. HD stable NAD. Objective - Vital Signs/Intake and Output Vital Signs (last 24 hours): Temp Pulse Resp BP Pulse Ox 99.1 F 87 18 129/62 96 10/11/16 08:12 10/11/16 09:51 10/11/16 08:12 10/11/16 09:51 10/11/16 08:12 GEN: WDWN, alert, cooperative HEENT: NCAT, PERRL, EOMI NECK: supple, no JVD, no lymphadenopathy CARDIAC: +S1S2 RRR LUNG: CTAB No WRR ABD: SOFT NT ND BSX4 NO MASSES NO HSM EXT: +pedal pulses, equal strength NEURO: AAOx3 SKIN warm, dry PSYCH normal mood, normal affect - Medications Medications: Current Medications Acetaminophen (Tylenol 325mg Tab) 650 mg PO Q4 PRN PRN Reason: Fever >100.4 F Last Admin: 10/11/16 05:46 Dose: 650 mg Amitriptyline HCl (Elavil) 50 mg PO HS [facility] Last Admin: 10/10/16 21:41 Dose: 50 mg Aspirin (Ecotrin) 81 mg PO DAILY [facility] Last Admin: 10/11/16 09:50 Dose: 81 mg Atorvastatin Calcium (Lipitor) 20 mg PO DAILY [facility] Last Admin: 10/11/16 09:52 Dose: 20 mg Cholecalciferol (Vitamin D) 5,000 iu PO MO [facility] Duloxetine HCl (Cymbalta) 60 mg PO DAILY [facility] Last Admin: 10/11/16 09:52 Dose: 60 mg Enalapril Maleate (Vasotec) 5 mg PO DAILY [facility] Last Admin: 10/11/16 09:54 Dose: 5 mg Enoxaparin Sodium (Lovenox) 40 mg SC DAILY [facility] PRN Reason: Protocol Last Admin: 10/11/16 09:53 Dose: 40 mg Glipizide (Glucotrol Xl) 10 mg PO BRK [facility] Last Admin: 10/11/16 08:52 Dose: 10 mg Hydroxyzine Pamoate (Vistaril) 50 mg PO HS [facility] Last Admin: 10/10/16 21:41 Dose: 50 mg Piperacillin Sod/Tazobactam (Sod 3.375 gm/ Sodium Chloride) 100 mls @ 100 mls/ hr IVPB Q8 [facility] Last Admin: 10/11/16 09:55 Dose: 100 mls/hr Vancomycin HCl 1 gm/ Sodium (Chloride) 250 mls @ 166.667 mls/hr IVPB Q12 [facility] Last Admin: 10/11/16 10:02 Dose: 166.667 mls/hr Insulin Human Lispro (Humalog) 0 units SC ACHS [facility] PRN Reason: Protocol Last Admin: 10/11/16 09:52 Dose: 2 units Ketorolac Tromethamine (Toradol) 30 mg IVP Q6 PRN PRN Reason: Pain, severe (8-10) Last Admin: 10/11/16 05:46 Dose: 30 mg Ketorolac Tromethamine (Toradol) 15 mg IVP Q6 PRN PRN Reason: Pain, moderate (4-7) Last Admin: 10/10/16 12:47 Dose: 15 mg Lidocaine (Lidoderm) 1 ea TD DAILY [facility] Last Admin: 10/11/16 09:53 Dose: 1 ea Lorazepam (Ativan) 1 mg PO Q12@0900,2100 [facility] Last Admin: 10/11/16 09:49 Dose: 1 mg Metoprolol Tartrate (Lopressor) 12.5 mg PO Q12 [facility] Last Admin: 10/11/16 09:51 Dose: 12.5 mg Ondansetron HCl (Zofran Inj) 4 mg IVP Q6 PRN PRN Reason: Nausea/Vomiting Zolpidem Tartrate (Ambien) 5 mg PO HS PRN PRN Reason: Sleep Last Admin: 10/08/16 21:27 Dose: 5 mg - Labs Labs: 10/10/16 06:00 10/09/16 06:00 Assessment and Plan - Assessment and Plan (Free Text) Plan: 66 year old female PMH HTN HLD DM osteoarthritis, initially presented to the emergency room s/p mechanical fall, without head injury, for pain in hips and legs, which she states is moderate, nonradiating, no associated with any other sx. Patient usually receives injections from Dr. Huerta for pain. Pt HIP and PELVIS XR showed degenerative changes without any acute findings. Patient also complained of foul smelling urine, UA + LE and nit, WBC 20.1 pt tachycardic TMAX 102 in ER, pt started on Ceftriaxone. Pt to be admitted to [facility] for IV abx and further management. 1.Sepsis with gram positive cocci n clusters bacteremia and gram negative angleica UTI ECOLI patient still febrile, tachycardic with elevated WBC CHECK CT CHEST AND HIP for poss pneumonia / hip abscess Blood cx positive for gram positive cocci in clusters and urine cx positive for E COLI 10/07 BLOOD CX staph aureus sensitive to Vancomycin 10/07 URINE CX ECOLI sensitive to Zosyn 10/09 BLOOD CX prelim gm+ cocci Cont Vanc and Zosyn (day 3) ID consult appreciated Continue IVF , Tylenol for fever and pain management ECHO to check for vegetations, and check 2 more BC per ID 2.UTI on Zosyn IV Follow up cultures as above identification and sensitivities 3.Intractable hip Pain pelvis and lumbar spine Xray showed no acute pathology Continue pain management 4.DM uncontrolled accuchecks,lispro sliding scale low, diabetic diet Follow up Hgb A1c cont glipizide 5.HTN stable cont vasotec 6.HLD cont statin 7.Depression/Anxiety continue ativan, elavil, cymbalta 8. DVt prophylaxis SCD , lovenox
--- NOTE | 2016-10-11 15:50 | CT ---
PROCEDURE: CT Pelvis without contrast HISTORY: hip abscess /2 injections COMPARISON: Abdomen pelvis CT with contrast 04/16/2015 TECHNIQUE: Contiguous axial images of the pelvis . No intravenous or oral contrast given. Coronal and sagittal reformats generated. Radiation dose: Total exam DLP = 739 mGy-cm. This CT exam was performed using one or more of the following dose reduction techniques: Automated exposure control, adjustment of the mA and/or kV according to patient size, and/or use of iterative reconstruction technique. FINDINGS: BLADDER: Urinary bladder appears distended but thin walled. No urolithiasis or mural nodularity appreciated. No mural thickening grossly evident. REPRODUCTIVE ORGANS: Unremarkable. VISUALIZED BOWEL: Mild sigmoid diverticular changes are appreciated at the mid to distal sigmoid colon without acute findings. The appendix appears normal. Liquified fecal material identified at the is said the visualized ascending colon and cecum. PERITONEUM: Unremarkable, as visualized. No free fluid. No free air. LYMPH NODES: Unremarkable. No enlarged lymph nodes. BONES: No fracture or focal lesion. Mild degenerate change in the bilateral sacrum can hip joints with advanced degenerate disease seen the visualized inferior lumbar spine. An old healed fracture of the inferior sacrum/ upper coccyx is suggested as well. No fluid collection seen related to the left or right hip joints with a dirt greater trochanter bursa regions. Trace fluid is seen in the bilateral inferior flank/buttock soft tissues, the greater the right which is minimal and nonspecific. No emphysema soft tissue change accompany these findings. VASCULATURE: Unremarkable. OTHER FINDINGS: None. IMPRESSION: 1. No definitive pattern to suggest right or left hip joint abscess at this time. Degenerate changes appear mild at the bilateral hip and sacroiliac joints. MRI is available for follow-up of clinically warranted. 2. Trace fluid is seen the bilateral lower flank/upper buttocks soft tissues which is of limited volume and of uncertain clinical significance. No emphysematous changes are identified. 3. Lesser additional findings and are identified as discussed above.
--- NOTE | 2016-10-11 16:20 | CT ---
PROCEDURE: CT Chest without contrast HISTORY: pneumonia COMPARISON: None. TECHNIQUE: Contiguous axial images were obtained through the chest without intravenous contrast enhancement. Sagittal and coronal reconstructions were performed. Radiation dose (DLP): 690.96 mGy-cm. This CT exam was performed using one or more of the following dose reduction techniques: Automated exposure control, adjustment of the mA and/or kV according to patient size, and/or use of iterative reconstruction technique. FINDINGS: LUNGS: Airspace consolidation at the right lower low may represent atelectasis. The possibility of underlying pneumonia or infiltrate is not totally excluded. There is focal reticular opacities/ infiltrates at the inferior segment of the left lung upper lobe may also represent a pneumonia. MEDIASTINUM: Unremarkable thoracic aorta. No aneurysm. The heart is mildly enlarged. Main pulmonary artery unremarkable. No vascular congestion. Mildly enlarged precarinal lymph node is noted. PLEURA: There is small to moderate right and trace left pleural effusions seen. BONES: No fracture. No destructive lesion. UPPER ABDOMEN: Grossly unremarkable. OTHER FINDINGS: None. IMPRESSION: Moderate right pleural effusion. Right lower lobe consolidation may represent atelectasis. Underlying pneumonia in the lower lobe is not totally excluded. Small infiltrate at the inferior segment of the left lung upper lobe may also represent a pneumonia. Trace left pleural effusion. Mild cardiomegaly.
[2016-10-12] MEDS: Piperacillin/Tazobact 3.375 GM in Sodium Chloride 0.9% 100 ML IVPB SCH ×3 (00:03→16:26)
[2016-10-12] MEDS: Lidocaine 5% Patch TD SCH (09:32)
[2016-10-12] MEDS: GlipiZIDE 10 mg SR Tab PO SCH (09:33)
[2016-10-12] MEDS: Enoxaparin 40 mg Syringe SC SCH (09:33)
[2016-10-12] MEDS: Insulin Lispro (humaLOG) 100 Units/ml Inj SC SCH ×4 (09:34→22:11)
--- NOTE | 2016-10-12 10:51 | CP.PCM.PN ---
Subjective - Date & Time of Evaluation Date of Evaluation: 10/12/16 Time of Evaluation: 10:42 - Subjective Subjective: PT NO COMPLAINTS FEELING OK HD STABLE NAD Objective - Vital Signs/Intake and Output Vital Signs (last 24 hours): Temp Pulse Resp BP Pulse Ox 98.8 F 94 H 18 137/64 97 10/12/16 08:09 10/12/16 09:32 10/12/16 08:09 10/12/16 09:32 10/12/16 08:09 Exam: GEN: WDWN, alert, cooperative HEENT: NCAT, PERRL, EOMI NECK: supple, no JVD, no lymphadenopathy CARDIAC: +S1S2 RRR LUNG: CTAB No WRR ABD: SOFT NT ND BSX4 NO MASSES NO HSM EXT: +pedal pulses, equal strength NEURO: AAOx3 SKIN warm, dry PSYCH normal mood, normal affect - Medications Medications: Current Medications Acetaminophen (Tylenol 325mg Tab) 650 mg PO Q4 PRN PRN Reason: Fever >100.4 F Last Admin: 10/12/16 04:29 Dose: 650 mg Amitriptyline HCl (Elavil) 50 mg PO HS [facility] Last Admin: 10/11/16 21:40 Dose: 50 mg Aspirin (Ecotrin) 81 mg PO DAILY [facility] Last Admin: 10/12/16 09:33 Dose: 81 mg Atorvastatin Calcium (Lipitor) 20 mg PO DAILY [facility] Last Admin: 10/12/16 09:35 Dose: 20 mg Cholecalciferol (Vitamin D) 5,000 iu PO MO [facility] Last Admin: 10/11/16 16:31 Dose: 5,000 iu Duloxetine HCl (Cymbalta) 60 mg PO DAILY [facility] Last Admin: 10/12/16 09:32 Dose: 60 mg Enalapril Maleate (Vasotec) 5 mg PO DAILY [facility] Last Admin: 10/12/16 09:33 Dose: 5 mg Enoxaparin Sodium (Lovenox) 40 mg SC DAILY [facility] PRN Reason: Protocol Last Admin: 10/12/16 09:33 Dose: 40 mg Glipizide (Glucotrol Xl) 10 mg PO BRK [facility] Last Admin: 10/12/16 09:33 Dose: 10 mg Hydroxyzine Pamoate (Vistaril) 50 mg PO HS [facility] Last Admin: 10/11/16 21:40 Dose: 50 mg Piperacillin Sod/Tazobactam (Sod 3.375 gm/ Sodium Chloride) 100 mls @ 100 mls/ hr IVPB Q8 [facility] Last Admin: 10/12/16 09:37 Dose: 100 mls/hr Vancomycin HCl 1 gm/ Sodium (Chloride) 250 mls @ 166.667 mls/hr IVPB Q12 [facility] Last Admin: 10/12/16 09:35 Dose: 166.667 mls/hr Insulin Human Lispro (Humalog) 0 units SC ACHS [facility] PRN Reason: Protocol Last Admin: 10/12/16 09:34 Dose: Not Given Ketorolac Tromethamine (Toradol) 30 mg IVP Q6 PRN PRN Reason: Pain, severe (8-10) Last Admin: 10/11/16 16:13 Dose: 30 mg Ketorolac Tromethamine (Toradol) 15 mg IVP Q6 PRN PRN Reason: Pain, moderate (4-7) Last Admin: 10/12/16 04:54 Dose: 15 mg Lidocaine (Lidoderm) 1 ea TD DAILY [facility] Last Admin: 10/12/16 09:32 Dose: 1 ea Lorazepam (Ativan) 1 mg PO Q12@0900,2100 [facility] Last Admin: 10/12/16 09:41 Dose: 1 mg Metoprolol Tartrate (Lopressor) 12.5 mg PO Q12 [facility] Last Admin: 10/12/16 09:32 Dose: 12.5 mg Ondansetron HCl (Zofran Inj) 4 mg IVP Q6 PRN PRN Reason: Nausea/Vomiting Zolpidem Tartrate (Ambien) 5 mg PO HS PRN PRN Reason: Sleep Last Admin: 10/08/16 21:27 Dose: 5 mg - Labs Labs: 10/10/16 06:00 10/09/16 06:00 Assessment and Plan - Assessment and Plan (Free Text) Plan: 66 year old female PMH HTN HLD DM osteoarthritis, initially presented to the emergency room s/p mechanical fall, without head injury, for pain in hips and legs, which she states is moderate, nonradiating, no associated with any other sx. Patient usually receives injections from Dr. Huerta for pain. Pt HIP and PELVIS XR showed degenerative changes without any acute findings. Patient also complained of foul smelling urine, UA + LE and nit, WBC 20.1 pt tachycardic TMAX 102 in ER, pt started on Ceftriaxone. Pt to be admitted to [facility] for IV abx and further management. 1.Sepsis with gram positive cocci n clusters bacteremia and gram negative angelica UTI ECOLI patient AFEBRILE >48H CT CHEST: mod pleural effusion, POSSIBLE Pneumonia LLL, L inferior lobe CT HIP: NO definitive L or R hip joint abscess Blood cx positive for gram positive cocci in clusters and urine cx positive for E COLI 10/07 BLOOD CX + STAPH AUREUS sensitive to Vancomycin 10/07 URINE CX + ECOLI sensitive to Zosyn 10/09 BLOOD CX + STAPH AUREUS (S: TMP/SMX 10, CIPRO 0.5, GENT 0.5, LEVO 0.12, MOXI 0.25, OXA 0.25, RIF 0.5 , TIGECYCLINE 0.12, VANC 0.5) 10/10 BLOOD CX + STAPH AUREUS 10/10 BLOOD CX + STAPH AUREUS SPUTUM CULTURE ORDERED Cont Vanc and Zosyn Add Azithromycin ID consult appreciated Continue IVF , Tylenol for fever and pain management ECHO NO vegetations, and check 2 more BC per ID NIKA PER ID 2.UTI on Zosyn IV Follow up cultures as above identification and sensitivities 3.Intractable hip Pain pelvis and lumbar spine Xray showed no acute pathology Continue pain management 4.DM uncontrolled accuchecks,lispro sliding scale low, diabetic diet Follow up Hgb A1c cont glipizide 5.HTN stable cont vasotec 6.HLD cont statin 7.Depression/Anxiety continue ativan, elavil, cymbalta 8. DVt prophylaxis SCD , lovenox
[2016-10-12 11:19] LABS: BASO # 0.1 K/uL (0.0-0.2); BASO % 0.5 % (0.0-2.0); EOS # 0.1 K/uL (0.0-0.7); EOS % 0.5 % (0.0-4.0); HEMATOCRIT 33.6 % (34.0-47.0); LYMPH # 3.4 K/uL (1.0-4.3); LYMPH % 19.3 % (20.0-40.0); MEAN CELL VOLUME 76.2 fl (81.0-99.0); MEAN CORPUSCULAR HEMOGLOBIN 25.2 pg (27.0-31.0); MEAN PLATELET VOLUME 8.8 fl (7.2-11.7); MONO # 1.6 K/uL (0.0-0.8); NEUT # 12.6 K/uL (1.8-7.0); NEUT % 70.7 % (50.0-75.0); NRBC % 0.1 % (0.0-0.0); RED CELL DISTRIBUTION WIDTH 13.9 % (11.5-14.5); WHITE BLOOD COUNT 17.8 K/uL (4.8-10.8)
[2016-10-12 11:40] LABS: BLOOD UREA NITROGEN 8 mg/dl (7-17); CALCIUM 8.3 mg/dL (8.4-10.2); CARBON DIOXIDE 24 mmol/L (22-30); CHLORIDE 103 mmol/L (98-107); GFR AFRICAN-AMERICAN > 60; GLUCOSE,RANDOM 216 mg/dL (65-105); POTASSIUM 3.2 MMOL/L (3.6-5.0); SODIUM 136 mmol/l (132-148)
[2016-10-12] MEDS: Azithromycin 500 MG in Sodium Chloride 0.9% 250 ML IVPB SCH (12:00)
[2016-10-12] MEDS ORDERED: Sodium Chloride 3% for Inhalation 4 ML VIAL.NEB IH PRN (12:34)
--- NOTE | 2016-10-13 00:38 | CP.PCM.CON ---
History of Present Illness - History of Present Illness History of Present Illness: Consulation for NIKA to evaluate for IE HPI: 66-year-old female with past medical history significant for hypertension hyperlipidemia diabetes mellitus osteoarthritis who presented to the emergency room status post mechanical fall with pain in her legs and hips which described as moderate in intensity without any associated radiation. Patient was receiving some intra-articular injection by Dr. Huerta for pain. X-ray showed degenerative changes she also asked complain of having foul-smelling urine positive UA with a white count of 20,000 she was febrile in the ER tachycardic and was initiated on ceftriaxone. During the hospitalization she had blood cultures consistent with staph aureus bacteremia and E. coli UTI. Therefore I was consented for evaluation of endocarditis. Review of Systems - Review of Systems All systems: reviewed and no additional remarkable complaints except - Constitutional Constitutional: As Per HPI, Fever, Lethargy - EENT Eyes: As Per HPI Ears: As Per HPI Nose/Mouth/Throat: As Per HPI - Breasts Breasts: As Per HPI - Cardiovascular Cardiovascular: As Per HPI - Respiratory Respiratory: As Per HPI - Gastrointestinal Gastrointestinal: As Per HPI - Genitourinary Genitourinary: As Per HPI, Dysuria - Reproductive: Female Reproductive:Female: As Per HPI - Menstruation Menstruation: As Per HPI - Musculoskeletal Musculoskeletal: As Per HPI - Integumentary Integumentary: As Per HPI - Neurological Neurological: As Per HPI - Psychiatric Psychiatric: As Per HPI - Endocrine Endocrine: As Per HPI - Hematologic/Lymphatic Hematologic: As Per HPI Past Patient History - Past Medical History & Family History Past Medical History?: Yes Pertinent Family History: +ve for HTN - Past Social History Smoking Status: Never Smoked Alcohol: None Drugs: Denies Home Situation {Lives}: Alone - CARDIAC Hx Hypercholesterolemia: Yes Hx Hypertension: Yes - PULMONARY Hx Respiratory Disorders: No - NEUROLOGICAL Hx Neurological Disorder: No - HEENT Hx HEENT Problems: Yes - RENAL Hx Chronic Kidney Disease: No - ENDOCRINE/METABOLIC Hx Endocrine Disorders: Yes Hx Diabetes Mellitus Type 2: Yes - HEMATOLOGICAL/ONCOLOGICAL Hx Blood Disorders: No - INTEGUMENTARY Hx Dermatological Problems: No - MUSCULOSKELETAL/RHEUMATOLOGICAL Hx Musculoskeletal Disorders: Yes Hx Arthritis: Yes Hx Falls: Yes (recent) - GASTROINTESTINAL Hx Gastrointestinal Disorders: No - GENITOURINARY/GYNECOLOGICAL Hx Genitourinary Disorders: No - PSYCHIATRIC Hx Psychophysiologic Disorder: Yes Hx Anxiety: Yes Hx Substance Use: No - SURGICAL HISTORY Hx Surgeries: Yes Hx Hysterectomy: Yes Hx Tubal Ligation: Yes Other/Comment: tubal ligation/tonsil surgery - ANESTHESIA Hx Anesthesia: Yes Hx Anesthesia Reactions: No Hx Malignant Hyperthermia: No Meds Home Medications: Home Medication List Medication Instructions Recorded Confirmed Type Piperacillin/Tazobact [Zosyn 3 3.375 gm IV Q8 #42 vial 10/14/16 Rx Gm-0.375 Gm] Vancomycin [Vancomycin Inj] 1 gm IVPB Q12 #56 vial 10/14/16 Rx Allergies/Adverse Reactions: Allergies Allergy/AdvReac Type Severity Reaction Status Date / Time No Known Allergies Allergy Verified 10/07/16 12:05 - Medications Medications: Current Medications Acetaminophen (Tylenol 325mg Tab) 650 mg PO Q4 PRN PRN Reason: Fever >100.4 F Last Admin: 10/12/16 04:29 Dose: 650 mg Amitriptyline HCl (Elavil) 50 mg PO HS [facility] Last Admin: 10/12/16 21:02 Dose: 50 mg Aspirin (Ecotrin) 81 mg PO DAILY [facility] Last Admin: 10/12/16 09:33 Dose: 81 mg Atorvastatin Calcium (Lipitor) 20 mg PO DAILY [facility] Last Admin: 10/12/16 09:35 Dose: 20 mg Cholecalciferol (Vitamin D) 5,000 iu PO MO [facility] Last Admin: 10/11/16 16:31 Dose: 5,000 iu Duloxetine HCl (Cymbalta) 60 mg PO DAILY [facility] Last Admin: 10/12/16 09:32 Dose: 60 mg Enalapril Maleate (Vasotec) 5 mg PO DAILY [facility] Last Admin: 10/12/16 09:33 Dose: 5 mg Enoxaparin Sodium (Lovenox) 40 mg SC DAILY [facility] PRN Reason: Protocol Last Admin: 10/12/16 09:33 Dose: 40 mg Glipizide (Glucotrol Xl) 10 mg PO BRK [facility] Last Admin: 10/12/16 09:33 Dose: 10 mg Hydroxyzine Pamoate (Vistaril) 50 mg PO HS [facility] Last Admin: 10/12/16 21:01 Dose: 50 mg Piperacillin Sod/Tazobactam (Sod 3.375 gm/ Sodium Chloride) 100 mls @ 100 mls/ hr IVPB Q8 [facility] Last Admin: 10/12/16 16:26 Dose: 100 mls/hr Vancomycin HCl 1 gm/ Sodium (Chloride) 250 mls @ 166.667 mls/hr IVPB Q12 [facility] Last Admin: 10/12/16 20:59 Dose: 166.667 mls/hr Azithromycin 500 mg/ Sodium (Chloride) 250 mls @ 250 mls/hr IVPB DAILY [facility] Last Admin: 10/12/16 12:00 Dose: 250 mls/hr Insulin Human Lispro (Humalog) 0 units SC ACHS [facility] PRN Reason: Protocol Last Admin: 10/12/16 22:11 Dose: 3 units Ketorolac Tromethamine (Toradol) 30 mg IVP Q6 PRN PRN Reason: Pain, severe (8-10) Last Admin: 10/12/16 20:50 Dose: 30 mg Ketorolac Tromethamine (Toradol) 15 mg IVP Q6 PRN PRN Reason: Pain, moderate (4-7) Last Admin: 10/12/16 04:54 Dose: 15 mg Lidocaine (Lidoderm) 1 ea TD DAILY [facility] Last Admin: 10/12/16 09:32 Dose: 1 ea Lorazepam (Ativan) 1 mg PO Q12@0900,2100 [facility] Last Admin: 10/12/16 20:50 Dose: 1 mg Metoprolol Tartrate (Lopressor) 12.5 mg PO Q12 [facility] Last Admin: 10/12/16 21:00 Dose: 12.5 mg Ondansetron HCl (Zofran Inj) 4 mg IVP Q6 PRN PRN Reason: Nausea/Vomiting Zolpidem Tartrate (Ambien) 5 mg PO HS PRN PRN Reason: Sleep Last Admin: 10/12/16 22:10 Dose: 5 mg Physical Exam - Constitutional Appears: Well - Head Exam Head Exam: ATRAUMATIC, NORMAL INSPECTION, NORMOCEPHALIC - Eye Exam Eye Exam: EOMI, Normal appearance, PERRL Pupil Exam: NORMAL ACCOMODATION, PERRL - ENT Exam ENT Exam: Mucous Membranes Moist, Normal Exam - Neck Exam Neck exam: Positive for: Normal Inspection - Respiratory Exam Respiratory Exam: Clear to Auscultation Bilateral, NORMAL BREATHING PATTERN - Cardiovascular Exam Cardiovascular Exam: REGULAR RHYTHM, +S1, +S2, Systolic Murmur - GI/Abdominal Exam GI & Abdominal Exam: Normal Bowel Sounds, Soft. absent: Tenderness - Extremities Exam Extremities exam: Positive for: normal inspection - Back Exam Back exam: NORMAL INSPECTION - Neurological Exam Neurological exam: Alert, CN II-XII Intact, Normal Gait, Oriented x3, Reflexes Normal - Psychiatric Exam Psychiatric exam: Normal Affect, Normal Mood - Skin Skin Exam: Dry, Intact, Normal Color, Warm Results - Vital Signs Recent Vital Signs: Last Vital Signs Temp 99.3 F 10/13/16 00:31 Pulse 75 10/13/16 00:31 Resp 18 10/13/16 00:31 BP 137/72 10/13/16 00:31 Pulse Ox 95 10/13/16 00:31 - Labs Result Diagrams: 10/14/16 05:30 10/14/16 06:16 Labs: Laboratory Results - last 24 hr 10/12/16 10/12/16 10/12/16 05:20 11:00 11:00 WBC 17.8 H RBC 4.41 Hgb 11.1 L Hct 33.6 L MCV 76.2 L D MCH 25.2 L MCHC 33.0 RDW 13.9 Plt Count 241 MPV 8.8 Neut % (Auto) 70.7 Lymph % (Auto) 19.3 L [place] % (Auto) 9.0 Eos % (Auto) 0.5 Baso % (Auto) 0.5 Neut # 12.6 H Lymph # 3.4 [place] # 1.6 H Eos # 0.1 Baso # 0.1 Sodium 136 Potassium 3.2 L Chloride 103 Carbon Dioxide 24 Anion Gap 12 BUN 8 Creatinine 0.5 L Est GFR ( Amer) > 60 Est GFR (Non-Af Amer) > 60 POC Glucose (mg/dL) 281 H Random Glucose 216 H Calcium 8.3 L 10/12/16 10/12/16 10/12/16 12:20 16:17 21:45 WBC RBC Hgb Hct MCV MCH MCHC RDW Plt Count MPV Neut % (Auto) Lymph % (Auto) [place] % (Auto) Eos % (Auto) Baso % (Auto) Neut # Lymph # [place] # Eos # Baso # Sodium Potassium Chloride Carbon Dioxide Anion Gap BUN Creatinine Est GFR ( Amer) Est GFR (Non-Af Amer) POC Glucose (mg/dL) 227 H 235 H 285 H Random Glucose Calcium Assessment & Plan (1) Bacteremia due to Gram-positive bacteria Assessment and Plan: plan for NIKA in am npo p mn Abx per ID Status: Acute (2) Fever Status: Acute (3) HTN (hypertension) Assessment and Plan: on metoprolol and enalapril Status: Chronic (4) Dyslipidemia Assessment and Plan: statins Status: Acute
[2016-10-13] MEDS: Piperacillin/Tazobact 3.375 GM in Sodium Chloride 0.9% 100 ML IVPB SCH ×3 (01:03→17:33)
[2016-10-13 08:05] LABS: BASO # 0.1 K/uL (0.0-0.2); BASO % 0.3 % (0.0-2.0); EOS # 0.1 K/uL (0.0-0.7); EOS % 0.6 % (0.0-4.0); HEMATOCRIT 34.3 % (34.0-47.0); LYMPH # 3.5 K/uL (1.0-4.3); LYMPH % 20.7 % (20.0-40.0); MEAN CELL VOLUME 76.1 fl (81.0-99.0); MEAN CORPUSCULAR HEMOGLOBIN 25.4 pg (27.0-31.0); MEAN CORPUSCULAR HGB CONC 33.3 g/dL (33.0-37.0); MEAN PLATELET VOLUME 8.8 fl (7.2-11.7); MONO # 1.5 K/uL (0.0-0.8); MONO % 8.9 % (0.0-10.0); NEUT # 11.6 K/uL (1.8-7.0); NEUT % 69.5 % (50.0-75.0); NRBC % 0.1 % (0.0-0.0); RED CELL DISTRIBUTION WIDTH 13.9 % (11.5-14.5); WHITE BLOOD COUNT 16.7 K/uL (4.8-10.8)
[2016-10-13 08:28] LABS: BLOOD UREA NITROGEN 7 mg/dl (7-17); CALCIUM 8.5 mg/dL (8.4-10.2); CARBON DIOXIDE 25 mmol/L (22-30); CHLORIDE 103 mmol/L (98-107); GFR AFRICAN-AMERICAN > 60; GLUCOSE,RANDOM 234 mg/dL (65-105); POTASSIUM 3.3 MMOL/L (3.6-5.0); SODIUM 138 mmol/l (132-148)
[2016-10-13] MEDS: GlipiZIDE 10 mg SR Tab PO SCH ×2 (09:12→17:36)
[2016-10-13] MEDS: Lidocaine 5% Patch TD SCH (09:14)
[2016-10-13] MEDS: Insulin Lispro (humaLOG) 100 Units/ml Inj SC SCH ×4 (09:14→22:08)
[2016-10-13] MEDS: Enoxaparin 40 mg Syringe SC SCH (09:21)
--- NOTE | 2016-10-13 10:42 | CP.PCM.PN ---
Subjective - Date & Time of Evaluation Date of Evaluation: 10/13/16 Time of Evaluation: 10:42 - Subjective Subjective: ID Note- Pt. seen and examined today. pt. denies any fever or chills. denies any sob but states has phlegm. for NIKA today to r/o IE since continues to have pos blood cx on IV vanco. Objective - Vital Signs/Intake and Output Vital Signs (last 24 hours): Temp Pulse Resp BP Pulse Ox 99.2 F 85 20 166/76 H 95 10/13/16 08:42 10/13/16 08:42 10/13/16 08:42 10/13/16 08:42 10/13/16 08:42 - Medications Medications: Current Medications Acetaminophen (Tylenol 325mg Tab) 650 mg PO Q4 PRN PRN Reason: Fever >100.4 F Last Admin: 10/12/16 04:29 Dose: 650 mg Amitriptyline HCl (Elavil) 50 mg PO HS [facility] Last Admin: 10/12/16 21:02 Dose: 50 mg Aspirin (Ecotrin) 81 mg PO DAILY [facility] Last Admin: 10/13/16 09:12 Dose: Not Given Atorvastatin Calcium (Lipitor) 20 mg PO DAILY [facility] Last Admin: 10/13/16 09:15 Dose: Not Given Cholecalciferol (Vitamin D) 5,000 iu PO MO [facility] Last Admin: 10/11/16 16:31 Dose: 5,000 iu Duloxetine HCl (Cymbalta) 60 mg PO DAILY [facility] Last Admin: 10/13/16 09:12 Dose: Not Given Enalapril Maleate (Vasotec) 5 mg PO DAILY [facility] Last Admin: 10/13/16 09:20 Dose: Not Given Enoxaparin Sodium (Lovenox) 40 mg SC DAILY [facility] PRN Reason: Protocol Last Admin: 10/13/16 09:21 Dose: Not Given Glipizide (Glucotrol Xl) 10 mg PO BRK [facility] Last Admin: 10/13/16 09:12 Dose: Not Given Hydroxyzine Pamoate (Vistaril) 50 mg PO HS [facility] Last Admin: 10/12/16 21:01 Dose: 50 mg Piperacillin Sod/Tazobactam (Sod 3.375 gm/ Sodium Chloride) 100 mls @ 100 mls/ hr IVPB Q8 [facility] Last Admin: 10/13/16 09:23 Dose: 100 mls/hr Vancomycin HCl 1 gm/ Sodium (Chloride) 250 mls @ 166.667 mls/hr IVPB Q12 [facility] Last Admin: 10/13/16 09:18 Dose: 166.667 mls/hr Azithromycin 500 mg/ Sodium (Chloride) 250 mls @ 250 mls/hr IVPB DAILY [facility] Last Admin: 10/12/16 12:00 Dose: 250 mls/hr Insulin Human Lispro (Humalog) 0 units SC ACHS [facility] PRN Reason: Protocol Last Admin: 10/13/16 09:14 Dose: 3 units Ketorolac Tromethamine (Toradol) 30 mg IVP Q6 PRN PRN Reason: Pain, severe (8-10) Last Admin: 10/12/16 20:50 Dose: 30 mg Ketorolac Tromethamine (Toradol) 15 mg IVP Q6 PRN PRN Reason: Pain, moderate (4-7) Last Admin: 10/12/16 04:54 Dose: 15 mg Lidocaine (Lidoderm) 1 ea TD DAILY [facility] Last Admin: 10/13/16 09:14 Dose: 1 ea Lorazepam (Ativan) 1 mg PO Q12@0900,2100 [facility] Last Admin: 10/13/16 09:12 Dose: Not Given Metoprolol Tartrate (Lopressor) 12.5 mg PO Q12 [facility] Last Admin: 10/12/16 21:00 Dose: 12.5 mg Ondansetron HCl (Zofran Inj) 4 mg IVP Q6 PRN PRN Reason: Nausea/Vomiting Zolpidem Tartrate (Ambien) 5 mg PO HS PRN PRN Reason: Sleep Last Admin: 10/12/16 22:10 Dose: 5 mg - Labs Labs: - Additional Findings Additional findings: - Constitutional Appears: No Acute Distress - Head Exam Head Exam: ATRAUMATIC - Eye Exam Eye Exam: EOMI, PERRL - ENT Exam ENT Exam: Normal Oropharynx - Neck Exam Neck exam: Positive for: Full Rom - Respiratory Exam Respiratory Exam: Clear to Auscultation Bilateral, NORMAL BREATHING PATTERN - Cardiovascular Exam Cardiovascular Exam: RRR, +S1, +S2 - GI/Abdominal Exam GI & Abdominal Exam: Normal Bowel Sounds, Soft Additional comments: NT, ND No CVA tenderness - Extremities Exam Additional comments: no edema B/L LE - Neurological Exam Neurological exam: Alert, Oriented x 3 Laboratory Results - last 72 hr 10/10/16 10/10/16 10/11/16 16:48 22:08 05:52 WBC RBC Hgb Hct MCV MCH MCHC RDW Plt Count MPV Neut % (Auto) Lymph % (Auto) [place] % (Auto) Eos % (Auto) Baso % (Auto) Neut # Lymph # [place] # Eos # Baso # Sodium Potassium Chloride Carbon Dioxide Anion Gap BUN Creatinine Est GFR ( Amer) Est GFR (Non-Af Amer) POC Glucose (mg/dL) 273 H 238 H 240 H Random Glucose Calcium 10/11/16 10/11/16 10/11/16 11:18 15:55 21:16 WBC RBC Hgb Hct MCV MCH MCHC RDW Plt Count MPV Neut % (Auto) Lymph % (Auto) [place] % (Auto) Eos % (Auto) Baso % (Auto) Neut # Lymph # [place] # Eos # Baso # Sodium Potassium Chloride Carbon Dioxide Anion Gap BUN Creatinine Est GFR ( Amer) Est GFR (Non-Af Amer) POC Glucose (mg/dL) 323 H 288 H 261 H Random Glucose Calcium 10/12/16 10/12/16 10/12/16 05:20 11:00 11:00 WBC 17.8 H RBC 4.41 Hgb 11.1 L Hct 33.6 L MCV 76.2 L D MCH 25.2 L MCHC 33.0 RDW 13.9 Plt Count 241 MPV 8.8 Neut % (Auto) 70.7 Lymph % (Auto) 19.3 L [place] % (Auto) 9.0 Eos % (Auto) 0.5 Baso % (Auto) 0.5 Neut # 12.6 H Lymph # 3.4 [place] # 1.6 H Eos # 0.1 Baso # 0.1 Sodium 136 Potassium 3.2 L Chloride 103 Carbon Dioxide 24 Anion Gap 12 BUN 8 Creatinine 0.5 L Est GFR ( Amer) > 60 Est GFR (Non-Af Amer) > 60 POC Glucose (mg/dL) 281 H Random Glucose 216 H Calcium 8.3 L 10/12/16 10/12/16 10/12/16 12:20 16:17 21:45 WBC RBC Hgb Hct MCV MCH MCHC RDW Plt Count MPV Neut % (Auto) Lymph % (Auto) [place] % (Auto) Eos % (Auto) Baso % (Auto) Neut # Lymph # [place] # Eos # Baso # Sodium Potassium Chloride Carbon Dioxide Anion Gap BUN Creatinine Est GFR ( Amer) Est GFR (Non-Af Amer) POC Glucose (mg/dL) 227 H 235 H 285 H Random Glucose Calcium 10/13/16 10/13/16 10/13/16 06:13 06:25 06:25 WBC 16.7 H RBC 4.51 Hgb 11.4 L Hct 34.3 MCV 76.1 L MCH 25.4 L MCHC 33.3 RDW 13.9 Plt Count 290 MPV 8.8 Neut % (Auto) 69.5 Lymph % (Auto) 20.7 [place] % (Auto) 8.9 Eos % (Auto) 0.6 Baso % (Auto) 0.3 Neut # 11.6 H Lymph # 3.5 [place] # 1.5 H Eos # 0.1 Baso # 0.1 Sodium 138 Potassium 3.3 L Chloride 103 Carbon Dioxide 25 Anion Gap 13 BUN 7 Creatinine 0.5 L Est GFR ( Amer) > 60 Est GFR (Non-Af Amer) > 60 POC Glucose (mg/dL) 230 H Random Glucose 234 H Calcium 8.5 10/13/16 10:45 WBC RBC Hgb Hct MCV MCH MCHC RDW Plt Count MPV Neut % (Auto) Lymph % (Auto) [place] % (Auto) Eos % (Auto) Baso % (Auto) Neut # Lymph # [place] # Eos # Baso # Sodium Potassium Chloride Carbon Dioxide Anion Gap BUN Creatinine Est GFR ( Amer) Est GFR (Non-Af Amer) POC Glucose (mg/dL) 240 H Random Glucose Calcium Microbiology 10/10/16 17:05 Blood-Venous Blood Culture - Final Staphylococcus Aureus 10/10/16 17:05 Blood-Venous Gram Stain - Final 10/10/16 17:00 Blood-Venous S.aureus & Coag-Neg Staph PNA FISH - Final 10/10/16 17:00 Blood-Venous Blood Culture - Final Staphylococcus Aureus 10/10/16 17:00 Blood-Venous Gram Stain - Final 10/09/16 07:00 Blood-Venous S.aureus & Coag-Neg Staph PNA FISH - Final 10/09/16 07:00 Blood-Venous Blood Culture - Final Staphylococcus Aureus 10/09/16 07:00 Blood-Venous Gram Stain - Final 10/07/16 15:15 Blood S.aureus & Coag-Neg Staph PNA FISH - Final 10/07/16 15:15 Blood Blood Culture - Final Staphylococcus Aureus 10/07/16 15:15 Blood Gram Stain - Final 10/07/16 15:30 Blood Blood Culture - Final Gram Positive Cocci 10/07/16 15:30 Blood Gram Stain - Final 10/07/16 15:30 Urine,Clean Catch Urine Culture - Final Escherichia Coli ccession No. : [id number] Patient Name / ID : KEVAN WALL / [id number] Exam Date : 10/11/2016 08:42:08 ( Approved ) Study Comment : Sex / Age : F / 66Y Creator : Heriberto Muñoz Dictator : Heriberto Muñoz Turner Machine Operator : Youth Agent : Heriberto Muñoz Approver2 : Report Date : 10/11/2016 16:14:56 My Comment : PROCEDURE: CT Chest without contrast HISTORY: pneumonia COMPARISON: None. TECHNIQUE: Contiguous axial images were obtained through the chest without intravenous contrast enhancement. Sagittal and coronal reconstructions were performed. Radiation dose (DLP): 690.96 mGy-cm. This CT exam was performed using one or more of the following dose reduction techniques: Automated exposure control, adjustment of the mA and/or kV according to patient size, and/or use of iterative reconstruction technique. FINDINGS: LUNGS: Airspace consolidation at the right lower low may represent atelectasis. The possibility of underlying pneumonia or infiltrate is not totally excluded. There is focal reticular opacities/ infiltrates at the inferior segment of the left lung upper lobe may also represent a pneumonia. MEDIASTINUM: Unremarkable thoracic aorta. No aneurysm. The heart is mildly enlarged. Main pulmonary artery unremarkable. No vascular congestion. Mildly enlarged precarinal lymph node is noted. PLEURA: There is small to moderate right and trace left pleural effusions seen. BONES: No fracture. No destructive lesion. UPPER ABDOMEN: Grossly unremarkable. OTHER FINDINGS: None. IMPRESSION: Moderate right pleural effusion. Right lower lobe consolidation may represent atelectasis. Underlying pneumonia in the lower lobe is not totally excluded. Small infiltrate at the inferior segment of the left lung upper lobe may also represent a pneumonia. Trace left pleural effusion. Mild cardiomegaly. Accession No. : [id number] Patient Name / ID : KEVAN WALL / [id number] Exam Date : 10/11/2016 08:45:32 ( Approved ) Study Comment : Sex / Age : F / 6Y Creator : Sameer Ventura MD Dictator : Sameer Ventura MD Turner Machine Operator : Youth Agent : Sameer Ventura MD Approver2 : Report Date : 10/11/2016 15:44:41 My Comment : PROCEDURE: CT Pelvis without contrast HISTORY: hip abscess 03/25 injections COMPARISON: Abdomen pelvis CT with contrast 04/16/2015 TECHNIQUE: Contiguous axial images of the pelvis . No intravenous or oral contrast given. Coronal and sagittal reformats generated. Radiation dose: Total exam DLP = 739 mGy-cm. This CT exam was performed using one or more of the following dose reduction techniques: Automated exposure control, adjustment of the mA and/or kV according to patient size, and/or use of iterative reconstruction technique. FINDINGS: BLADDER: Urinary bladder appears distended but thin walled. No urolithiasis or mural nodularity appreciated. No mural thickening grossly evident. REPRODUCTIVE ORGANS: Unremarkable. VISUALIZED BOWEL: Mild sigmoid diverticular changes are appreciated at the mid to distal sigmoid colon without acute findings. The appendix appears normal. Liquified fecal material identified at the is said the visualized ascending colon and cecum. PERITONEUM: Unremarkable, as visualized. No free fluid. No free air. LYMPH NODES: Unremarkable. No enlarged lymph nodes. BONES: No fracture or focal lesion. Mild degenerate change in the bilateral sacrum can hip joints with advanced degenerate disease seen the visualized inferior lumbar spine. An old healed fracture of the inferior sacrum/ upper coccyx is suggested as well. No fluid collection seen related to the left or right hip joints with a dirt greater trochanter bursa regions. Trace fluid is seen in the bilateral inferior flank/buttock soft tissues, the greater the right which is minimal and nonspecific. No emphysema soft tissue change accompany these findings. VASCULATURE: Unremarkable. OTHER FINDINGS: None. IMPRESSION: 1. No definitive pattern to suggest right or left hip joint abscess at this time. Degenerate changes appear mild at the bilateral hip and sacroiliac joints. MRI is available for follow-up of clinically warranted. 2. Trace fluid is seen the bilateral lower flank/upper buttocks soft tissues which is of limited volume and of uncertain clinical significance. No emphysematous changes are identified. 3. Lesser additional findings and are identified as discussed above. Assessment and Plan (1) Fever Status: Acute (2) UTI (urinary tract infection) Status: Acute (3) DM2 (diabetes mellitus, type 2) Status: Chronic (4) Bacteremia due to Gram-positive bacteria Status: Acute - Assessment and Plan (Free Text) Assessment: A/P- 66 year old female with HTN, DM II admitted with UTI and found to also have bacteremia. afebrile past 24 hours. leukocytosi again today. resolved. Blood cx- MSSA x 2 from 10/07/2016 and blood cx from 10/09/2016- MSSA x 2 blood cx- 10/10/2016- MSSA x 2 urine cx- E.Coli NOt ESBL sensitive to zosyn TTE- no vegetations as per report. plan- for now continue with IV vancomycin for staph bacteremia day #5. keep trough <20. NIKA to rule out IE since continus to have postive mssa blood cxdespite IV vancomycin. check 2 more blood cx. chect Ct as per report? pneumonia. continue with IV zosyn for this. check sputum cx. all above d/w patient and her daughter who is at bedisde at length and they verbalize full understanding of all above.
[2016-10-13] MEDS ORDERED: Propofol 10 mg/ml Inj (20 ML) ONE (13:26)
[2016-10-13] MEDS ORDERED: Midazolam 2 MG/2 ML VIAL ONE (13:26)
[2016-10-13] MEDS ORDERED: Lactated Ringer's 1,000 ML IV SCH (13:40)
[2016-10-13] MEDS ORDERED: Sodium Chloride 0.9% 100 ML IV ONE (13:53)
[2016-10-13] MEDS ORDERED: Sodium Chloride 0.9% 500 ML IV ONE (14:10)
--- NOTE | 2016-10-13 14:23 | CP.PCM.PN ---
Subjective - Date & Time of Evaluation Date of Evaluation: 10/13/16 Time of Evaluation: 10:50 - Subjective Subjective: Pt seen and examined. Claimed she felt better but still putting out a lot of phlegm. Objective - Vital Signs/Intake and Output Vital Signs (last 24 hours): Temp Pulse Resp BP Pulse Ox 99.2 F 85 20 166/76 H 95 10/13/16 08:42 10/13/16 08:42 10/13/16 08:42 10/13/16 08:42 10/13/16 08:42 - Medications Medications: Current Medications Acetaminophen (Tylenol 325mg Tab) 650 mg PO Q4 PRN PRN Reason: Fever >100.4 F Last Admin: 10/12/16 04:29 Dose: 650 mg Amitriptyline HCl (Elavil) 50 mg PO HS [facility] Last Admin: 10/12/16 21:02 Dose: 50 mg Aspirin (Ecotrin) 81 mg PO DAILY [facility] Last Admin: 10/13/16 09:12 Dose: Not Given Atorvastatin Calcium (Lipitor) 20 mg PO DAILY [facility] Last Admin: 10/13/16 09:15 Dose: Not Given Cholecalciferol (Vitamin D) 5,000 iu PO MO [facility] Last Admin: 10/11/16 16:31 Dose: 5,000 iu Duloxetine HCl (Cymbalta) 60 mg PO DAILY [facility] Last Admin: 10/13/16 09:12 Dose: Not Given Enalapril Maleate (Vasotec) 5 mg PO DAILY [facility] Last Admin: 10/13/16 09:20 Dose: Not Given Enoxaparin Sodium (Lovenox) 40 mg SC DAILY [facility] PRN Reason: Protocol Last Admin: 10/13/16 09:21 Dose: Not Given Glipizide (Glucotrol Xl) 10 mg PO BRK [facility] Last Admin: 10/13/16 09:12 Dose: Not Given Hydroxyzine Pamoate (Vistaril) 50 mg PO HS [facility] Last Admin: 10/12/16 21:01 Dose: 50 mg Piperacillin Sod/Tazobactam (Sod 3.375 gm/ Sodium Chloride) 100 mls @ 100 mls/ hr IVPB Q8 [facility] Last Admin: 10/13/16 09:23 Dose: 100 mls/hr Vancomycin HCl 1 gm/ Sodium (Chloride) 250 mls @ 166.667 mls/hr IVPB Q12 [facility] Last Admin: 10/13/16 09:18 Dose: 166.667 mls/hr Azithromycin 500 mg/ Sodium (Chloride) 250 mls @ 250 mls/hr IVPB DAILY [facility] Last Admin: 10/12/16 12:00 Dose: 250 mls/hr Lactated Ringer's (Lactated Ringer's) 1,000 mls @ 50 mls/hr IV .Q20H [facility] Insulin Human Lispro (Humalog) 0 units SC ACHS [facility] PRN Reason: Protocol Last Admin: 10/13/16 10:56 Dose: 2 units Ketorolac Tromethamine (Toradol) 30 mg IVP Q6 PRN PRN Reason: Pain, severe (8-10) Last Admin: 10/12/16 20:50 Dose: 30 mg Ketorolac Tromethamine (Toradol) 15 mg IVP Q6 PRN PRN Reason: Pain, moderate (4-7) Last Admin: 10/12/16 04:54 Dose: 15 mg Lidocaine (Lidoderm) 1 ea TD DAILY [facility] Last Admin: 10/13/16 09:14 Dose: 1 ea Lorazepam (Ativan) 1 mg PO Q12@0900,2100 [facility] Last Admin: 10/13/16 09:12 Dose: Not Given Metoprolol Tartrate (Lopressor) 12.5 mg PO Q12 [facility] Last Admin: 10/13/16 10:55 Dose: 12.5 mg Ondansetron HCl (Zofran Inj) 4 mg IVP Q6 PRN PRN Reason: Nausea/Vomiting Ondansetron HCl (Zofran Inj) 4 mg IVP ONCE PRN PRN Reason: Nausea/Vomiting Stop: 10/13/16 15:41 Zolpidem Tartrate (Ambien) 5 mg PO HS PRN PRN Reason: Sleep Last Admin: 10/12/16 22:10 Dose: 5 mg - Labs Labs: 10/13/16 06:25 10/13/16 06:25 - Constitutional Appears: No Acute Distress - Head Exam Head Exam: ATRAUMATIC - Eye Exam Eye Exam: absent: Scleral icterus - ENT Exam ENT Exam: Mucous Membranes Moist - Neck Exam Neck Exam: absent: Meningismus - Respiratory Exam Respiratory Exam: absent: Rhonchi, Wheezes, Respiratory Distress - Cardiovascular Exam Cardiovascular Exam: REGULAR RHYTHM, +S1, +S2 - GI/Abdominal Exam GI & Abdominal Exam: Soft. absent: Tenderness - Rectal Exam Rectal Exam: Deferred - Neurological Exam Neurological Exam: Alert, Oriented x3 - Psychiatric Exam Psychiatric exam: Normal Affect - Skin Skin Exam: Dry, Intact Assessment and Plan - Assessment and Plan (Free Text) Assessment: 66 yo female with history of HTN, DM2, HLD and OA initially came in complaining of a fall and foul smelling urine. Imaging showed only degenerative changes but urine showed pyuria. She was also tachycardic and febrile. Patient was admitted with sepsis secondary to UTI and started on IV antibiotics. 1. Sepsis blood culture grew Staph aureus urine culture grew E Coli CT CHEST: right pleural effusion, RLL infiltrate, MARY LOU infiltrate afebrile > 48hrs but WBC has not gone down lower than 15 WBC today: 16.7 Continue Vanco, Zosyn and Azithromycin ECHO: no vegetations ID consult with Dr Margaret hernández 2. UTI urine grew E Coli continue IV Zosyn 3. Pneumonia continue to produce phlegm denied SOB or chest pain continue Azithromycin 4. Bacteremia blood culture grew Staph aureus continue Vanco 5. Intractable hip Pain pelvis and lumbar spine Xray showed no acute pathology Continue pain management 6. DM BS uncontrolled on Glipizide SR 10mg PO at breakfast Metformin 500mg PO q 12hrs Hgb A1c: pending 7. HTN BP stable on Vasotec 8. HLD continue statin 9. Depression/Anxiety continue Elavil and Cymbalta 10. DVt prophylaxis SCD , Lovenox
[2016-10-13] MEDS ORDERED: Lactated Ringer's 1,000 ML IV ONE (15:07)
--- NOTE | 2016-10-13 15:44 | CP.PCM.PN ---
Subjective - Date & Time of Evaluation Date of Evaluation: 10/13/16 Time of Evaluation: 15:43 - Subjective Subjective: NIKA shows no vegetations Objective - Vital Signs/Intake and Output Vital Signs (last 24 hours): Temp Pulse Resp BP Pulse Ox 100.4 F H 83 18 139/69 97 10/13/16 15:25 10/13/16 15:25 10/13/16 15:25 10/13/16 15:25 10/13/16 15:25 Intake and Output: 10/13/16 10/13/16 06:59 18:59 Intake Total 300 Output Total 500 Balance -200 - Medications Medications: Current Medications Acetaminophen (Tylenol 325mg Tab) 650 mg PO Q4 PRN PRN Reason: Fever >100.4 F Last Admin: 10/12/16 04:29 Dose: 650 mg Acetaminophen (Tylenol 650 Mg Supp) [address] ONCE PRN PRN Reason: Fever >100.4 F Last Admin: 10/13/16 14:55 Dose: 650 mg Amitriptyline HCl (Elavil) 50 mg PO HS [facility] Last Admin: 10/12/16 21:02 Dose: 50 mg Aspirin (Ecotrin) 81 mg PO DAILY [facility] Last Admin: 10/13/16 09:12 Dose: Not Given Atorvastatin Calcium (Lipitor) 20 mg PO DAILY [facility] Last Admin: 10/13/16 09:15 Dose: Not Given Cholecalciferol (Vitamin D) 5,000 iu PO MO [facility] Last Admin: 10/11/16 16:31 Dose: 5,000 iu Duloxetine HCl (Cymbalta) 60 mg PO DAILY [facility] Last Admin: 10/13/16 09:12 Dose: Not Given Enalapril Maleate (Vasotec) 5 mg PO DAILY [facility] Last Admin: 10/13/16 09:20 Dose: Not Given Glipizide (Glucotrol Xl) 10 mg PO BRK [facility] Last Admin: 10/13/16 09:12 Dose: Not Given Hydroxyzine Pamoate (Vistaril) 50 mg PO HS [facility] Last Admin: 10/12/16 21:01 Dose: 50 mg Piperacillin Sod/Tazobactam (Sod 3.375 gm/ Sodium Chloride) 100 mls @ 100 mls/ hr IVPB Q8 [facility] Last Admin: 10/13/16 09:23 Dose: 100 mls/hr Vancomycin HCl 1 gm/ Sodium (Chloride) 250 mls @ 166.667 mls/hr IVPB Q12 [facility] Last Admin: 10/13/16 09:18 Dose: 166.667 mls/hr Azithromycin 500 mg/ Sodium (Chloride) 250 mls @ 250 mls/hr IVPB DAILY [facility] Last Admin: 10/12/16 12:00 Dose: 250 mls/hr Lactated Ringer's (Lactated Ringer's) 1,000 mls @ 50 mls/hr IV .Q20H [facility] Insulin Human Lispro (Humalog) 0 units SC ACHS [facility] PRN Reason: Protocol Last Admin: 10/13/16 10:56 Dose: 2 units Ketorolac Tromethamine (Toradol) 30 mg IVP Q6 PRN PRN Reason: Pain, severe (8-10) Last Admin: 10/12/16 20:50 Dose: 30 mg Ketorolac Tromethamine (Toradol) 15 mg IVP Q6 PRN PRN Reason: Pain, moderate (4-7) Last Admin: 10/12/16 04:54 Dose: 15 mg Lidocaine (Lidoderm) 1 ea TD DAILY [facility] Last Admin: 10/13/16 09:14 Dose: 1 ea Lorazepam (Ativan) 1 mg PO Q12@0900,2100 [facility] Last Admin: 10/13/16 09:12 Dose: Not Given Metformin HCl (Glucophage) 500 mg PO BIDWM [facility] Metoprolol Tartrate (Lopressor) 12.5 mg PO Q12 [facility] Last Admin: 10/13/16 10:55 Dose: 12.5 mg Ondansetron HCl (Zofran Inj) 4 mg IVP Q6 PRN PRN Reason: Nausea/Vomiting Zolpidem Tartrate (Ambien) 5 mg PO HS PRN PRN Reason: Sleep Last Admin: 10/12/16 22:10 Dose: 5 mg - Labs Labs: 10/13/16 06:25 10/13/16 06:25 - Constitutional Appears: Well - Head Exam Head Exam: ATRAUMATIC, NORMAL INSPECTION, NORMOCEPHALIC - Eye Exam Eye Exam: EOMI, Normal appearance, PERRL Pupil Exam: NORMAL ACCOMODATION, PERRL - ENT Exam ENT Exam: Mucous Membranes Moist, Normal Exam - Neck Exam Neck Exam: Full ROM, Normal Inspection. absent: Lymphadenopathy - Respiratory Exam Respiratory Exam: Clear to Ausculation Bilateral, NORMAL BREATHING PATTERN - Cardiovascular Exam Cardiovascular Exam: REGULAR RHYTHM, +S1, +S2, Murmur - GI/Abdominal Exam GI & Abdominal Exam: Soft, Normal Bowel Sounds. absent: Tenderness - Extremities Exam Extremities Exam: Full ROM, Normal Capillary Refill, Normal Inspection. absent : Joint Swelling, Pedal Edema - Back Exam Back Exam: NORMAL INSPECTION - Neurological Exam Neurological Exam: Alert, Awake, CN II-XII Intact, Oriented x3 - Psychiatric Exam Psychiatric exam: Normal Affect, Normal Mood - Skin Skin Exam: Dry, Intact, Normal Color, Warm Assessment and Plan (1) Bacteremia due to Gram-positive bacteria Assessment & Plan: NIKA normal EF with no evidence of vegetations Abx per ID Status: Acute (2) Dyslipidemia Assessment & Plan: statins Status: Acute (3) DM2 (diabetes mellitus, type 2) Status: Chronic (4) HTN (hypertension) Assessment & Plan: BB and ACEi Status: Chronic
[2016-10-13] MEDS: Azithromycin 500 MG in Sodium Chloride 0.9% 250 ML IVPB SCH (15:59)
[2016-10-13] MEDS ORDERED: Potassium Chloride 20 mEq ER Tab PO ONE (18:28)
[2016-10-14] MEDS: Piperacillin/Tazobact 3.375 GM in Sodium Chloride 0.9% 100 ML IVPB SCH ×3 (01:08→17:28)
[2016-10-14 06:28] LABS: BASO % 0.2 % (0.0-2.0); EOS # 0.1 K/uL (0.0-0.7); EOS % 0.7 % (0.0-4.0); LYMPH # 2.9 K/uL (1.0-4.3); LYMPH % 18.8 % (20.0-40.0); MEAN CELL VOLUME 78.2 fl (81.0-99.0); MEAN CORPUSCULAR HEMOGLOBIN 24.9 pg (27.0-31.0); MEAN CORPUSCULAR HGB CONC 31.9 g/dL (33.0-37.0); MEAN PLATELET VOLUME 8.6 fl (7.2-11.7); MONO # 1.4 K/uL (0.0-0.8); MONO % 8.8 % (0.0-10.0); NEUT # 11.2 K/uL (1.8-7.0); NEUT % 71.5 % (50.0-75.0); RED CELL DISTRIBUTION WIDTH 14.1 % (11.5-14.5); WHITE BLOOD COUNT 15.6 K/uL (4.8-10.8)
[2016-10-14 06:36] LABS: BLOOD UREA NITROGEN 10 mg/dl (7-17); CALCIUM 8.8 mg/dL (8.4-10.2); CARBON DIOXIDE 26 mmol/L (22-30); CHLORIDE 105 mmol/L (98-107); GFR AFRICAN-AMERICAN > 60; GLUCOSE,RANDOM 258 mg/dL (65-105); POTASSIUM 3.8 MMOL/L (3.6-5.0); SODIUM 141 mmol/l (132-148)
[2016-10-14] MEDS: Insulin Lispro (humaLOG) 100 Units/ml Inj SC SCH ×4 (06:53→22:12)
[2016-10-14] MEDS: GlipiZIDE 10 mg SR Tab PO SCH (08:15)
[2016-10-14 08:25] VITALS: RESP 20
[2016-10-14] MEDS: Azithromycin 500 MG in Sodium Chloride 0.9% 250 ML IVPB SCH (09:37)
[2016-10-14] MEDS: Enoxaparin 40 mg Syringe SC SCH (09:38)
[2016-10-14] MEDS: Lidocaine 5% Patch TD SCH (09:42)
--- NOTE | 2016-10-14 18:55 | CP.PCM.PN ---
Subjective - Date & Time of Evaluation Date of Evaluation: 10/14/16 Time of Evaluation: 17:00 - Subjective Subjective: Pt seen and examined. Feeling better. Objective - Vital Signs/Intake and Output Vital Signs (last 24 hours): Temp Pulse Resp BP Pulse Ox 98.5 F 75 20 166/76 H 97 10/14/16 16:51 10/14/16 16:51 10/14/16 16:51 10/14/16 16:51 10/14/16 16:51 - Medications Medications: Current Medications Acetaminophen (Tylenol 325mg Tab) 650 mg PO Q4 PRN PRN Reason: Fever >100.4 F Last Admin: 10/12/16 04:29 Dose: 650 mg Acetaminophen (Tylenol 650 Mg Supp) 650 mg ME ONCE PRN PRN Reason: Fever >100.4 F Last Admin: 10/13/16 14:55 Dose: 650 mg Amitriptyline HCl (Elavil) 50 mg PO HS [facility] Last Admin: 10/13/16 21:02 Dose: 50 mg Aspirin (Ecotrin) 81 mg PO DAILY [facility] Last Admin: 10/14/16 09:39 Dose: 81 mg Atorvastatin Calcium (Lipitor) 20 mg PO DAILY [facility] Last Admin: 10/14/16 09:38 Dose: 20 mg Cholecalciferol (Vitamin D) 5,000 iu PO MO [facility] Last Admin: 10/11/16 16:31 Dose: 5,000 iu Duloxetine HCl (Cymbalta) 60 mg PO DAILY [facility] Last Admin: 10/14/16 09:39 Dose: 60 mg Enalapril Maleate (Vasotec) 5 mg PO DAILY [facility] Last Admin: 10/14/16 09:39 Dose: 5 mg Enoxaparin Sodium (Lovenox) 40 mg SC DAILY [facility] PRN Reason: Protocol Last Admin: 10/14/16 09:38 Dose: 40 mg Glipizide (Glucotrol Xl) 10 mg PO BRK [facility] Last Admin: 10/14/16 08:15 Dose: 10 mg Hydroxyzine Pamoate (Vistaril) 50 mg PO HS [facility] Last Admin: 10/13/16 21:02 Dose: 50 mg Piperacillin Sod/Tazobactam (Sod 3.375 gm/ Sodium Chloride) 100 mls @ 100 mls/ hr IVPB Q8 [facility] Last Admin: 10/14/16 17:28 Dose: 100 mls/hr Vancomycin HCl 1 gm/ Sodium (Chloride) 250 mls @ 166.667 mls/hr IVPB Q12 [facility] Last Admin: 10/14/16 09:58 Dose: 166.667 mls/hr Azithromycin 500 mg/ Sodium (Chloride) 250 mls @ 250 mls/hr IVPB DAILY [facility] Last Admin: 10/14/16 09:37 Dose: 250 mls/hr Lactated Ringer's (Lactated Ringer's) 1,000 mls @ 50 mls/hr IV .Q20H [facility] Last Admin: 10/14/16 13:07 Dose: 50 mls/hr Insulin Human Lispro (Humalog) 0 units SC ACHS [facility] PRN Reason: Protocol Last Admin: 10/14/16 17:29 Dose: 2 units Ketorolac Tromethamine (Toradol) 30 mg IVP Q6 PRN PRN Reason: Pain, severe (8-10) Last Admin: 10/13/16 20:56 Dose: 30 mg Ketorolac Tromethamine (Toradol) 15 mg IVP Q6 PRN PRN Reason: Pain, moderate (4-7) Last Admin: 10/14/16 17:33 Dose: 15 mg Lidocaine (Lidoderm) 1 ea TD DAILY [facility] Last Admin: 10/14/16 09:42 Dose: 1 ea Lorazepam (Ativan) 1 mg PO Q12@0900,2100 [facility] Last Admin: 10/14/16 09:35 Dose: 1 mg Metformin HCl (Glucophage) 500 mg PO BIDWM [facility] Last Admin: 10/14/16 17:29 Dose: 500 mg Metoprolol Tartrate (Lopressor) 12.5 mg PO Q12 [facility] Last Admin: 10/14/16 09:39 Dose: 12.5 mg Ondansetron HCl (Zofran Inj) 4 mg IVP Q6 PRN PRN Reason: Nausea/Vomiting Zolpidem Tartrate (Ambien) 5 mg PO HS PRN PRN Reason: Sleep Last Admin: 10/13/16 22:08 Dose: 5 mg - Labs Labs: 10/14/16 05:30 10/14/16 06:16 - Constitutional Appears: No Acute Distress - Head Exam Head Exam: absent: ATRAUMATIC - Eye Exam Eye Exam: absent: Scleral icterus - ENT Exam ENT Exam: Mucous Membranes Moist - Neck Exam Neck Exam: absent: Meningismus - Respiratory Exam Respiratory Exam: absent: Rhonchi, Wheezes, Respiratory Distress - Cardiovascular Exam Cardiovascular Exam: REGULAR RHYTHM, +S1, +S2 - GI/Abdominal Exam GI & Abdominal Exam: Soft. absent: Tenderness - Rectal Exam Rectal Exam: Deferred - Neurological Exam Neurological Exam: Alert, Oriented x3 - Psychiatric Exam Psychiatric exam: Normal Affect - Skin Skin Exam: Dry, Intact Assessment and Plan - Assessment and Plan (Free Text) Assessment: 66 yo female with history of HTN, DM2, HLD and OA initially came in complaining of a fall and foul smelling urine. Imaging showed only degenerative changes but urine showed pyuria. She was also tachycardic and febrile. Patient was admitted with sepsis secondary to UTI and started on IV antibiotics. 1. Sepsis blood culture grew Staph aureus urine culture grew E Coli CT CHEST: right pleural effusion, RLL infiltrate, MARY LOU infiltrate afebrile > 48hrs but WBC has not gone down lower than 15 WBC today: 15.6 Continue Vanco and Zosyn ECHO: no vegetations ID consult with Dr Robles appreciated for discharge to [facility] tomorrow where she would continue IV Vanco and Zosyn 2. UTI urine grew E Coli continue IV Zosyn 3. Pneumonia CT scan of chest: RLL consolidation probably atelectasis denied SOB or chest pain DC Azithromycin 4. Bacteremia blood culture grew Staph aureus continue Vanco 5. Intractable hip Pain pelvis and lumbar spine Xray showed no acute pathology Continue pain management refer to PT for evaluation and management 6. DM BS uncontrolled on Glipizide SR 10mg PO at breakfast Metformin 500mg PO q 12hrs Hgb A1c: pending 7. HTN BP stable on Vasotec 8. HLD continue statin 9. Depression/Anxiety continue Elavil and Cymbalta 10. DVt prophylaxis SCD , Lovenox
[2016-10-14 22:14] VITALS: BP 178/83; PULSE 84
--- NOTE | 2016-10-14 23:35 | CP.PCM.PN ---
Subjective - Date & Time of Evaluation Date of Evaluation: 10/14/16 Time of Evaluation: 12:35 - Subjective Subjective: NIKA no evidence of vegetations feeling weak and lethargic Objective - Vital Signs/Intake and Output Vital Signs (last 24 hours): Temp Pulse Resp BP Pulse Ox 98.5 F 84 20 178/83 H 97 10/14/16 16:51 10/14/16 22:11 10/14/16 16:51 10/14/16 22:11 10/14/16 16:51 - Medications Medications: Current Medications Acetaminophen (Tylenol 325mg Tab) 650 mg PO Q4 PRN PRN Reason: Fever >100.4 F Last Admin: 10/12/16 04:29 Dose: 650 mg Acetaminophen (Tylenol 650 Mg Supp) 650 mg [place] ONCE PRN PRN Reason: Fever >100.4 F Last Admin: 10/13/16 14:55 Dose: 650 mg Acetaminophen (Tylenol 325mg Tab) 650 mg PO Q4 PRN PRN Reason: Headache Last Admin: 10/14/16 22:20 Dose: 650 mg Amitriptyline HCl (Elavil) 50 mg PO HS [facility] Last Admin: 10/14/16 22:02 Dose: 50 mg Aspirin (Ecotrin) 81 mg PO DAILY [facility] Last Admin: 10/14/16 09:39 Dose: 81 mg Atorvastatin Calcium (Lipitor) 20 mg PO DAILY [facility] Last Admin: 10/14/16 09:38 Dose: 20 mg Cholecalciferol (Vitamin D) 5,000 iu PO MO [facility] Last Admin: 10/11/16 16:31 Dose: 5,000 iu Duloxetine HCl (Cymbalta) 60 mg PO DAILY [facility] Last Admin: 10/14/16 09:39 Dose: 60 mg Enalapril Maleate (Vasotec) 5 mg PO DAILY [facility] Last Admin: 10/14/16 09:39 Dose: 5 mg Enoxaparin Sodium (Lovenox) 40 mg SC DAILY [facility] PRN Reason: Protocol Last Admin: 10/14/16 09:38 Dose: 40 mg Glipizide (Glucotrol Xl) 10 mg PO BRK [facility] Last Admin: 10/14/16 08:15 Dose: 10 mg Hydroxyzine Pamoate (Vistaril) 50 mg PO HS [facility] Last Admin: 10/14/16 22:02 Dose: 50 mg Piperacillin Sod/Tazobactam (Sod 3.375 gm/ Sodium Chloride) 100 mls @ 100 mls/ hr IVPB Q8 [facility] Last Admin: 10/14/16 17:28 Dose: 100 mls/hr Vancomycin HCl 1 gm/ Sodium (Chloride) 250 mls @ 166.667 mls/hr IVPB Q12 [facility] Last Admin: 10/14/16 22:05 Dose: 166.667 mls/hr Lactated Ringer's (Lactated Ringer's) 1,000 mls @ 50 mls/hr IV .Q20H [facility] Last Admin: 10/14/16 13:07 Dose: 50 mls/hr Insulin Human Lispro (Humalog) 0 units SC ACHS [facility] PRN Reason: Protocol Last Admin: 10/14/16 22:12 Dose: Not Given Ketorolac Tromethamine (Toradol) 30 mg IVP Q6 PRN PRN Reason: Pain, severe (8-10) Last Admin: 10/13/16 20:56 Dose: 30 mg Ketorolac Tromethamine (Toradol) 15 mg IVP Q6 PRN PRN Reason: Pain, moderate (4-7) Last Admin: 10/14/16 17:33 Dose: 15 mg Lidocaine (Lidoderm) 1 ea TD DAILY [facility] Last Admin: 10/14/16 09:42 Dose: 1 ea Lorazepam (Ativan) 1 mg PO Q12@0900,2100 [facility] Last Admin: 10/14/16 22:01 Dose: 1 mg Metformin HCl (Glucophage) 500 mg PO BIDWM [facility] Last Admin: 10/14/16 17:29 Dose: 500 mg Metoprolol Tartrate (Lopressor) 12.5 mg PO Q12 [facility] Last Admin: 10/14/16 22:11 Dose: 12.5 mg Ondansetron HCl (Zofran Inj) 4 mg IVP Q6 PRN PRN Reason: Nausea/Vomiting Zolpidem Tartrate (Ambien) 5 mg PO HS PRN PRN Reason: Sleep Last Admin: 10/13/16 22:08 Dose: 5 mg - Labs Labs: 10/14/16 05:30 10/14/16 06:16 - Constitutional Appears: Well - Head Exam Head Exam: ATRAUMATIC, NORMAL INSPECTION, NORMOCEPHALIC - Eye Exam Eye Exam: EOMI, Normal appearance, PERRL Pupil Exam: NORMAL ACCOMODATION, PERRL - ENT Exam ENT Exam: Mucous Membranes Moist, Normal Exam - Neck Exam Neck Exam: Full ROM, Normal Inspection. absent: Lymphadenopathy - Respiratory Exam Respiratory Exam: Clear to Ausculation Bilateral, NORMAL BREATHING PATTERN - Cardiovascular Exam Cardiovascular Exam: REGULAR RHYTHM, +S1, +S2, Murmur - GI/Abdominal Exam GI & Abdominal Exam: Soft, Normal Bowel Sounds. absent: Tenderness - Extremities Exam Extremities Exam: Full ROM, Normal Capillary Refill, Normal Inspection. absent : Joint Swelling, Pedal Edema - Back Exam Back Exam: NORMAL INSPECTION - Neurological Exam Neurological Exam: Alert, Awake, CN II-XII Intact, Oriented x3 - Psychiatric Exam Psychiatric exam: Normal Affect, Normal Mood - Skin Skin Exam: Dry, Intact, Normal Color, Warm Assessment and Plan (1) Bacteremia due to Gram-positive bacteria Assessment & Plan: no vegetations on NIKA Abx per ID for Staph bacteremia Status: Acute (2) Dyslipidemia Assessment & Plan: statins Status: Acute (3) DM2 (diabetes mellitus, type 2) Status: Chronic (4) HTN (hypertension) Assessment & Plan: bb and acei Status: Chronic
[2016-10-15] MEDS: Piperacillin/Tazobact 3.375 GM in Sodium Chloride 0.9% 100 ML IVPB SCH ×2 (00:51→09:03)
[2016-10-15] MEDS: GlipiZIDE 10 mg SR Tab PO SCH (08:06)
[2016-10-15] MEDS: Lidocaine 5% Patch TD SCH (09:02)
[2016-10-15] MEDS: Enoxaparin 40 mg Syringe SC SCH (09:03)
[2016-10-15] MEDS: Insulin Lispro (humaLOG) 100 Units/ml Inj SC SCH (09:15)
[2016-10-15 09:40] VITALS: TEMP 98.7; O2SAT 98
--- NOTE | 2016-10-15 16:23 | CP.PCM.DIS ---
Provider - Provider Date of Admission: 10/07/16 16:22 Attending physician: Dee Reid DO Consults: Dr Margaret Zavala Time Spent in preparation of Discharge (in minutes): 25 Diagnosis - Discharge Diagnosis (1) Sepsis Status: Resolved Comment: blood culture grew Staph aureus. urine culture grew E Coli. patient has been afebrile and feeling better. Continue Vanco for 28 days and Zosyn for 14 days. repeat blood culture and urine culture in [facility]. Vanco trough once a week (2) UTI (urinary tract infection) Status: Acute Comment: continue Zosyn for 14 days. urine positive for E coli (3) Pneumonia Status: Ruled-out Comment: CT scan of chest: RLL consolidation probably atelectasis. no respiratory symptoms; no SOB or chest pain or coughing. DC Azithromycin (4) Bacteremia Status: Acute Comment: blood culture grew Staph aureus. continue Vanco for 28 days (5) Intractable pain Status: Acute Comment: pelvis and lumbar spine Xray showed no acute pathology. Continue pain management. will need PT for evaluation and management in [facility] ( refused PT evaluation earlier because she didn't feel like it) (6) DM2 (diabetes mellitus, type 2) Status: Chronic Comment: BS uncontrolled. on Glipizide SR 10mg PO at breakfast. Metformin 500mg PO q 12hrs (7) HTN (hypertension) Status: Chronic Comment: BP stable. on Vasotec (8) HLD (hyperlipidemia) Status: Chronic Comment: continue statin (9) Depression Status: Chronic Comment: continue [facility] Course - Lab Results Lab Results: Micro Results 10/12/16 09:20 Sputum Gram Stain - Final 10/12/16 09:20 Sputum Sputum Culture - Final Yeast Species 10/13/16 11:30 Blood-Venous Blood Culture - Preliminary NO GROWTH AFTER 48 HOURS 10/13/16 11:20 Blood-Venous Blood Culture - Preliminary NO GROWTH AFTER 48 HOURS 10/12/16 20:30 Blood Blood Culture - Preliminary NO GROWTH AFTER 48 HOURS 10/12/16 20:30 Blood Blood Culture - Preliminary NO GROWTH AFTER 48 HOURS 10/10/16 17:05 Blood-Venous Blood Culture - Final Staphylococcus Aureus 10/10/16 17:05 Blood-Venous Gram Stain - Final 10/10/16 17:00 Blood-Venous S.aureus & Coag-Neg Staph PNA FISH - Final 10/10/16 17:00 Blood-Venous Blood Culture - Final Staphylococcus Aureus 10/10/16 17:00 Blood-Venous Gram Stain - Final 10/09/16 07:00 Blood-Venous S.aureus & Coag-Neg Staph PNA FISH - Final 10/09/16 07:00 Blood-Venous Blood Culture - Final Staphylococcus Aureus 10/09/16 07:00 Blood-Venous Gram Stain - Final Most Recent Lab Values WBC 15.6 K/uL (4.8-10.8) H 10/14/16 05:30 RBC 4.35 Mil/uL (3.80-5.20) 10/14/16 05:30 Hgb 10.9 g/dL (12.0-16.0) L 10/14/16 05:30 Hct 34.0 % (34.0-47.0) 10/14/16 05:30 MCV 78.2 fl (81.0-99.0) L D 10/14/16 05:30 MCH 24.9 pg (27.0-31.0) L 10/14/16 05:30 MCHC 31.9 g/dL (33.0-37.0) L 10/14/16 05:30 RDW 14.1 % (11.5-14.5) 10/14/16 05:30 Plt Count 324 K/uL (130-400) 10/14/16 05:30 MPV 8.6 fl (7.2-11.7) 10/14/16 05:30 Neut % (Auto) 71.5 % (50.0-75.0) 10/14/16 05:30 Lymph % (Auto) 18.8 % (20.0-40.0) L 10/14/16 05:30 [place] % (Auto) 8.8 % (0.0-10.0) 10/14/16 05:30 Eos % (Auto) 0.7 % (0.0-4.0) 10/14/16 05:30 Baso % (Auto) 0.2 % (0.0-2.0) 10/14/16 05:30 Neut # 11.2 K/uL (1.8-7.0) H 10/14/16 05:30 Lymph # 2.9 K/uL (1.0-4.3) 10/14/16 05:30 [place] # 1.4 K/uL (0.0-0.8) H 10/14/16 05:30 Eos # 0.1 K/uL (0.0-0.7) 10/14/16 05:30 Baso # 0.0 K/uL (0.0-0.2) 10/14/16 05:30 Neutrophils % (Manual) 80 % (42-75) H 10/07/16 15:30 Band Neutrophils % 1 % (0-2) 10/07/16 15:30 Lymphocytes % (Manual) 11 % (20-50) L 10/07/16 15:30 Monocytes % (Manual) 8 % (0-10) 10/07/16 15:30 Platelet Estimate Normal (NORMAL) 10/07/16 15:30 Hypochromasia (manual) Slight 10/07/16 15:30 Anisocytosis (manual) Slight 10/07/16 15:30 Microcytosis (manual) Slight 10/07/16 15:30 pO2 46 mm/Hg (30-55) 10/07/16 15:35 VBG pH 7.46 (7.32-7.43) H 10/07/16 15:35 VBG pCO2 35 mmHg (40-60) L 10/07/16 15:35 VBG HCO3 25.7 mmol/L 10/07/16 15:35 VBG Total CO2 26.0 mmol/L (22-28) 10/07/16 15:35 VBG O2 Sat (Calc) 89.2 % (40-65) H 10/07/16 15:35 VBG Base Excess 1.4 mmol/L (0.0-2.0) 10/07/16 15:35 VBG Potassium 3.9 mmol/L (3.6-5.2) 10/07/16 15:35 Sodium 131.0 mmol/L (132-148) L 10/07/16 15:35 Chloride 98.0 mmol/L (98-107) 10/07/16 15:35 Glucose 300 mg/dL (65-105) H 10/07/16 15:35 Lactate 1.5 mmol/L (0.7-2.1) 10/07/16 15:35 FiO2 21.0 % 10/07/16 15:35 Sodium 141 mmol/l (132-148) 10/14/16 06:16 Potassium 3.8 MMOL/L (3.6-5.0) 10/14/16 06:16 Chloride 105 mmol/L (98-107) 10/14/16 06:16 Carbon Dioxide 26 mmol/L (22-30) 10/14/16 06:16 Anion Gap 14 (10-20) 10/14/16 06:16 BUN 10 mg/dl (7-17) 10/14/16 06:16 Creatinine 0.7 mg/dL (0.7-1.2) 10/14/16 06:16 Est GFR ( Amer) > 60 10/14/16 06:16 Est GFR (Non-Af Amer) > 60 10/14/16 06:16 POC Glucose (mg/dL) 257 mg/dL (65-110) H 10/15/16 05:59 Random Glucose 258 mg/dL (65-105) H 10/14/16 06:16 Hemoglobin A1c 12.6 % (4.2-6.5) H 10/14/16 05:30 Calcium 8.8 mg/dL (8.4-10.2) 10/14/16 06:16 Total Bilirubin 0.8 mg/dl (0.2-1.3) 10/07/16 15:30 AST 27 U/L (14-36) 10/07/16 15:30 ALT 49 U/L (9-52) 10/07/16 15:30 Alkaline Phosphatase 80 U/L (38-126) 10/07/16 15:30 Total Protein 7.1 G/DL (6.3-8.2) 10/07/16 15:30 Albumin 3.7 g/dL (3.5-5.0) 10/07/16 15:30 Globulin 3.3 gm/dL (2.2-3.9) 10/07/16 15:30 Albumin/Globulin Ratio 1.1 (1.0-2.1) 10/07/16 15:30 Venous Blood Potassium 3.9 mmol/L (3.6-5.2) 10/07/16 15:35 Urine Color Yellow (YELLOW) 10/07/16 15:30 Urine Clarity Cloudy (Clear) 10/07/16 15:30 Urine pH 5.0 (5.0-8.0) 10/07/16 15:30 Ur Specific [place] 1.023 (1.003-1.030) 10/07/16 15:30 Urine Protein 100 mg/dL (NEGATIVE) 10/07/16 15:30 Urine Glucose (UA) >=500 mg/dL (Normal) 10/07/16 15:30 Urine Ketones 20 mg/dL (NEGATIVE) 10/07/16 15:30 Urine Blood Small (NEGATIVE) 10/07/16 15:30 Urine Nitrate Positive (NEGATIVE) H 10/07/16 15:30 Urine Bilirubin Negative (NEGATIVE) 10/07/16 15:30 Urine Urobilinogen 0.2-1.0 mg/dL (0.2-1.0) 10/07/16 15:30 Ur Leukocyte Esterase Large Matt/uL (Negative) 10/07/16 15:30 Urine RBC (Auto) 13 /hpf (0-3) H 10/07/16 15:30 Urine Microscopic WBC 353 /hpf (0-5) H 10/07/16 15:30 Ur Squamous Epith Cells 18 /hpf (0-5) H 10/07/16 15:30 Urine Bacteria Many (<OCC) H 10/07/16 15:30 Vancomycin Trough 7.0 ug/mL (5.0-10.0) 10/14/16 11:00 - Hospital Course Hospital Course: 66 yo female with history of HTN, DM2, HLD and OA initially came in complaining of a fall and foul smelling urine. Imaging showed only degenerative changes but urine showed pyuria. She was also tachycardic and febrile. Patient was admitted with sepsis secondary to UTI. Blood culture grew Staph Aureus and Urine grew E coli. She was put on IV Vanco and Zosyn. She was also put on Zithromax because of a possibility of Pneumonia. Patient did well and was discharged to [facility] in stable condition. She would continue to take IV Vanco for a total of 28 days and IV Zosyn for 14 days. Pt should have a repeat blood culture and urine culture in the [facility] and should have a weekly Vanco trough Discharge Exam - Head Exam Head Exam: ATRAUMATIC, NORMAL INSPECTION, NORMOCEPHALIC - Eye Exam Eye Exam: absent: Scleral icterus - ENT Exam ENT Exam: Mucous Membranes Moist - Respiratory Exam Respiratory Exam: absent: Rhonchi, Wheezes, Respiratory Distress - Cardiovascular Exam Cardiovascular Exam: REGULAR RHYTHM, +S1, +S2 - GI/Abdominal Exam GI & Abdominal Exam: Soft. absent: Tenderness - Rectal Exam Rectal Exam: Deferred - Neurological Exam Neurological exam: Alert, Oriented x3 - Psychiatric Exam Psychiatric exam: Normal Affect - Skin Skin Exam: Dry, Intact Discharge Plan - Discharge Medications Prescriptions: Piperacillin/Tazobact [Zosyn 3 Gm-0.375 Gm] 3.375 gm IV Q8 #42 vial Vancomycin [Vancomycin Inj] 1 gm IVPB Q12 #56 vial - Follow Up Plan Condition: GUARDED Disposition: TRANSF TO SNF Additional Instructions: need to repeat blood culture and urine culture in [facility] need to have a weekly vanco trough
--- NOTE | 2016-10-28 21:21 | CARD ---
APPROVED REPORT EXAM: Transesophageal echocardiogram with color flow Doppler. INDICATION Infection:Subacute bacterial endocarditis Echo Enhancing Agent Indication: Rule Out Septal Defect Agent/Amount Used: Agitated Saline Reason For Test : Rule out endocarditis. PROCEDURE After obtaining informed consent, patient underwent transesophageal echo in the Preop holding unit Type of Sedation : Conscious Sedation Sedation was provided by anesthesiologist. Sedation was achieved with intravenously. Transesophageal probe was inserted and advanced into esophagus without difficulty. The NIKA was performed without complications. Throughout the procedure, the blood pressure, pulse oximetry, cardiac rhythm, and rate were monitored. The patient tolerated the procedure without adverse effects. Recovery from conscious sedation was uneventful and vital signs were stable. LEFT VENTRICLE The left ventricle is normal size. There is borderline to mild concentric left ventricular hypertrophy. The left ventricular function is normal. The left ventricular ejection fraction is within the normal range. The Ejection Fraction is 55-60%. There is normal LV segmental wall motion. The left ventricular diastolic function is normal. No left ventricle thrombus noted on this study. There is no ventricular septal defect visualized. There is no left ventricular aneurysm. There is no mass noted in the left ventricle. RIGHT VENTRICLE The right ventricle is normal size. There is normal right ventricular wall thickness. The right ventricular systolic function is normal. ATRIA The left atrium is mildly dilated. The right atrium is mildly dilated. The interatrial septum is intact with no evidence for an atrial septal defect. AORTIC VALVE The aortic valve is mildly to moderately sclerotic. The aortic valve is trileaflet. No aortic regurgitation is present. There is no aortic valvular stenosis. There is no aortic valvular vegetation. MITRAL VALVE The mitral valve is normal in structure and function. There is no evidence of mitral valve prolapse. There is no mitral valve stenosis. Mitral regurgitation is trace to mild. TRICUSPID VALVE The tricuspid valve is normal in structure and function. There is mild tricuspid regurgitation. There is no tricuspid valve prolapse or vegetation. There is no tricuspid valve stenosis. PULMONIC VALVE The pulmonary valve is normal in structure and function. There is no pulmonic valvular regurgitation. There is no pulmonic valvular stenosis. GREAT VESSELS The aortic root is normal in size. The ascending aorta is normal in size. The pulmonary artery is normal. The IVC was not visualized. PERICARDIAL EFFUSION The pericardium appears normal. There is no pleural effusion. <Conclusion> The left ventricular function is normal. The left ventricular ejection fraction is within the normal range. The Ejection Fraction is 55-60%. No vegetations identified on any valves. The aortic valve is mildly to moderately sclerotic. The aortic valve is trileaflet. Mitral regurgitation is trace to mild.
== END 2016-10-15 13:44 | DRG 901 ==
LOC: H.ER 11:59 → H.ERHOLD 16:22 → H.TEL 20:28 → H.MEDSURG1 10-12 18:48
PROVIDERS: ADMIT Student in an Organized Health Care Education/Training Program; ATTEND Student in an Organized Health Care Education/Training Program
PROC: B246ZZ4 Ultrasonography of Right and Left Heart, Transesophageal (ICD-10-PCS; principal; 2016-10-13 13:45)
DX: A41.01 Sepsis due to Methicillin susceptible Staphylococcus aureus (principal); E11.65 Type 2 diabetes mellitus with hyperglycemia; I10 Essential (primary) hypertension; N39.0 Urinary tract infection, site not specified; B96.20 Unspecified Escherichia coli [E. coli] as the cause of diseases classified elsewhere; E78.00 Pure hypercholesterolemia, unspecified; F41.9 Anxiety disorder, unspecified; E78.5 Hyperlipidemia, unspecified; M25.551 Pain in right hip; F32.9 Major depressive disorder, single episode, unspecified; M19.90 Unspecified osteoarthritis, unspecified site

== ENCOUNTER 2017-11-05 19:08 | Emergency (ER) | payer MEDICARE, OTHER ==
[2017-11-05 19:12] VITALS: O2SAT 99
[2017-11-05 20:51] LABS: VENOUS BLOOD GAS BASE EXCESS 3.5 mmol/L (0.0-2.0); VENOUS BLOOD GAS PCO2 44 mmHg (40-60); VENOUS BLOOD GAS PO2 26 mm/Hg (30-55); VENOUS BLOOD PH 7.42 (7.32-7.43)
[2017-11-05 20:55] LABS: BASO # 0.1 K/uL (0.0-0.2); BASO % 0.6 % (0.0-2.0); EOS % 0.3 % (0.0-4.0); HEMOGLOBIN 12.1 g/dL (12.0-16.0); LYMPH # 3.4 K/uL (1.0-4.3); LYMPH % 27.3 % (20.0-40.0); MEAN CELL VOLUME 77.4 fl (81.0-99.0); MEAN CORPUSCULAR HEMOGLOBIN 25.1 pg (27.0-31.0); MEAN CORPUSCULAR HGB CONC 32.4 g/dL (33.0-37.0); MEAN PLATELET VOLUME 8.5 fl (7.2-11.7); MONO # 1.1 K/uL (0.0-0.8); NEUT # 7.8 K/uL (1.8-7.0); NEUT % 62.8 % (50.0-75.0); NRBC % 0.1 % (0.0-0.0); RBC 4.82 Mil/uL (3.80-5.20); RED CELL DISTRIBUTION WIDTH 13.9 % (11.5-14.5); WHITE BLOOD COUNT 12.3 K/uL (4.8-10.8)
[2017-11-05 21:00] LABS: INR 1.1; PROTHROMBIN TIME 12.2 Seconds (9.8-13.1)
[2017-11-05 21:03] LABS: PARTIAL THROMBOPLASTIN TIME 30.3 Seconds (25.6-37.1)
[2017-11-05 21:05] LABS: ALBUMIN 4.4 g/dL (3.5-5.0); ALT/SGPT 43 U/L (9-52); AST/SGOT 36 U/L (14-36); BLOOD UREA NITROGEN 11 mg/dl (7-17); CALCIUM 9.9 mg/dL (8.4-10.2); GFR NON-AFRICAN AMERICAN > 60
--- NOTE | 2017-11-05 21:55 | ED PDOC ---
Upper Extremity Pain/Injury Time Seen by Provider: 11/05/17 19:23 Chief Complaint (Nursing): Upper Extremity Problem/Injury Chief Complaint (Provider): Fever, Right arm pain History Per: Patient History/Exam Limitations: no limitations Onset/Duration Of Symptoms: Days (x2) Current Symptoms Are (Timing): Still Present Additional Complaint(s): 67 year old female, with a past medical history of diabetes, hypertension, hypercholesterolemia, depression, and spinal abscess, presenting for evaluation of worsening right arm pain since yesterday. Patient states she started developing a fever last night and her symptoms worsened today with associated weakness. Patient denies any trauma, cough, runny nose, nausea, vomiting, sick contacts, or recent travel. Past Medical History Reviewed: Historical Data, Nursing Documentation, Vital Signs Vital Signs: Last Vital Signs Temp 101.5 F H 11/05/17 20:21 Pulse 103 H 11/05/17 21:13 Resp 18 11/05/17 21:13 BP 135/63 11/05/17 21:13 Pulse Ox 99 11/05/17 21:13 - Medical History PMH: Anxiety, Arthritis, Back Problems, Depression, Diabetes, Gastritis, HTN, Hypercholesterolemia Denies: HIV, Chronic Kidney Disease Other PMH: Spinal abscess - Surgical History Surgical History: Endoscopy - Family History Family History: States: Unknown Family Hx - Immunization History Hx Tetanus Toxoid Vaccination: Yes Hx Influenza Vaccination: Yes Hx Pneumococcal Vaccination: Yes - Home Medications Home Medications: Ambulatory Orders Medication Instructions Recorded Amitriptyline [Elavil] 50 mg PO HS 10/07/16 Aspirin [Ecotrin] 81 mg PO DAILY 10/07/16 Cholecalciferol (Vitamin D3) 5,000 unit PO MO 10/07/16 [Vitamin D3] Enalapril Maleate [Vasotec] 5 mg PO DAILY 10/07/16 Glimepiride [amaRYL] 4 mg PO BID 10/07/16 Multivitamin [Multi-Vitamin Daily] 1 tab PO DAILY 10/07/16 Simvastatin [Zocor] 40 mg PO HS 10/07/16 Zolpidem [Ambien] 10 mg PO HS 10/07/16 hydrOXYzine Pamoate [Vistaril] 50 mg PO HS 10/07/16 Magnesium Hydroxide [Milk Of 30 ml PO DAILY 11/06/16 Magnesia] Docusate [Colace] 100 mg PO Q3 07/11/17 Gabapentin 300 mg PO TID 07/11/17 Insulin Degludec [Tresiba 100 unit SQ BID 07/11/17 Flextouch U-100] LORazepam [Ativan] 1 mg PO BID 07/11/17 Oxycodone HCl 10 mg PO Q6 07/11/17 Pantoprazole [Protonix] 40 mg PO DAILY 07/11/17 Ketorolac Tromethamine [Toradol] 10 mg PO BID #20 tab 11/06/17 levoFLOXacin [Levaquin] 750 mg PO DAILY #10 tab 11/06/17 - Allergies Allergies/Adverse Reactions: Allergies Allergy/AdvReac Type Severity Reaction Status Date / Time No Known Allergies Allergy Verified 11/05/17 19:10 Review of Systems ROS Statement: Except As Marked, All Systems Reviewed And Found Negative Constitutional: Positive for: Fever, Weakness ENT: Negative for: Nose Discharge Respiratory: Negative for: Cough Gastrointestinal: Negative for: Nausea, Vomiting Musculoskeletal: Positive for: Arm Pain (right) Physical Exam - Reviewed Nursing Documentation Reviewed: Yes Vital Signs Reviewed: Yes - Physical Exam Appears: Positive for: Non-toxic, No Acute Distress Head Exam: Positive for: ATRAUMATIC, NORMAL INSPECTION, NORMOCEPHALIC Skin: Positive for: Normal Color, Warm, Dry. Negative for: Rash Eye Exam: Positive for: EOMI, Normal appearance, PERRL ENT: Positive for: Normal ENT Inspection Neck: Positive for: Normal, Painless ROM, Supple Cardiovascular/Chest: Positive for: Regular Rate, Rhythm. Negative for: Murmur Respiratory: Positive for: Normal Breath Sounds. Negative for: Respiratory Distress Gastrointestinal/Abdominal: Positive for: Normal Exam, Soft. Negative for: Tenderness Back: Positive for: Normal Inspection. Negative for: L CVA Tenderness, R CVA Tenderness, Vertebral Tenderness Extremity: Positive for: Other (RUE: (+) swelling of the right shoulder; (+) limited ROM secondary to pain and swelling, (-) erythema. Normal exam of elbow and wrist joint. Neurovascularly intact. ) Neurologic/Psych: Positive for: Alert, Oriented (x3). Negative for: Motor/ Sensory Deficits - Laboratory Results Result Diagrams: 11/05/17 20:40 11/05/17 20:40 - ECG O2 Sat by Pulse Oximetry: 99 (RA) Pulse Ox Interpretation: Normal Medical Decision Making Medical Decision Makin A/P: Patient with a history of diabetes, HTN, and hypercholesterolemia presenting with fever and shoulder pain. Patient has vitals indicative of possible sepsis. Source at this time is possible abscess within shoulder vs pneumonia vs urinary source. -VBG shock panel -CT RUE with contrast -EKG -CMP -Magnesium -Phosphorus -CBC -PTT/PT -CXR -FSBS -Lactated Ringers 1,000mL IV -Toradol 30mg IVP -Tylenol 975mg PO -Blood culture -Urine culture -secured entrance monitor -Vitals Q15M -X-ray right shoulder -Urinalysis -US soft tissue limited -Reevaluation 00:03 CT RUE FINDINGS: Bones/joints: Mild glenohumeral joint space narrowing and osteophyte formation. Acromioclavicular joint space narrowing and osteophyte formation. Spondylosis of the imaged spine. No acute fracture. No dislocation. Soft tissues: Large calcification within the subscapularis tendon measuring 0.8 cm x 2.0 cm in axial dimension. Lymph nodes: No lymphadenopathy. Lung apices: Subpleural reticular opacities within the dependent aspect of the imaged lungs which may represent subsegmental atelectasis or scarring. IMPRESSION: 1. No evident abscess in the region of the right shoulder. 2. Hydroxyapatite deposition within the subscapularis tendon consistent with calcific tendinitis. This calcification measures up to 2.0 cm in axial dimension. 0100 Patient felt much better after toradol and fluids, vitals improved to normal. Advised patient and family admission for IV Abx but family and patient wishing to go home at this time. Levoquin IV given and instructions to followup with [facility]. Patient is very well appearing with completely normal vitals upon discharge. Scribe Attestation: Documented by Heber Booker, acting as a scribe for Kit Ruiz MD. Provider Scribe Attestation: All medical record entries made by the Scribe were at my direction and personally dictated by me. I have reviewed the chart and agree that the record accurately reflects my personal performance of the history, physical exam, medical decision making, and the department course for this patient. I have also personally directed, reviewed, and agree with the discharge instructions and disposition. Disposition - Clinical Impression Clinical Impression: UTI (urinary tract infection), Calcific tendinitis - Disposition Referrals: Aron Acosta Jr., MD [Family Provider] - Disposition: Routine/Home Disposition Time: 01:00 Condition: IMPROVED Prescriptions: Ketorolac Tromethamine [Toradol] 10 mg PO BID #20 tab levoFLOXacin [Levaquin] 750 mg PO DAILY #10 tab Instructions: Urinary Tract Infection, Adult (DC), Calcific Tendonitis of the Shoulder (DC) Forms: [facility] (Cameroonian) Print Language: GUATEMALAN
[2017-11-05] MEDS ORDERED: Sodium Chloride 0.9% 50 ML IV ONE (22:19)
[2017-11-05] MEDS ORDERED: Iohexol 300 100 ML IJ ONE (22:19)
[2017-11-06 00:38] LABS: SQUAMOUS EPITHIAL 1 /hpf (0-5); URINE BACTERIA RARE (<OCC); URINE BILIRUBIN NEGATIVE (NEGATIVE); URINE BLOOD NEGATIVE (NEGATIVE); URINE CLARITY CLOUDY (Clear); URINE COLOR YELLOW (YELLOW); URINE GLUCOSE (UA) >=500 mg/dL (Normal); URINE LEUKOCYTE ESTERASE LARGE Leu/uL (Negative); URINE PROTEIN NEGATIVE (NEGATIVE); URINE UROBILINOGEN 0.2-1.0 mg/dL (0.2-1.0)
[2017-11-06] MEDS ORDERED: levoFLOXacin 750 mg in D5W 150 ML BAG IVPB STA (01:00)
[2017-11-06] MEDS ORDERED: levoFLOXacin 750 mg in D5W 750 MG/150 ML BAG IVPB ONE (01:13)
[2017-11-06 02:01] VITALS: BP 130/74; PULSE 82; RESP 13; TEMP 98.2
--- NOTE | 2017-11-06 08:04 | CARD ---
APPROVED REPORT Date of service: 11/05/2017 <Conclusion> Normal sinus rhythm Nonspecific T wave abnormality Prolonged QT Abnormal ECG
--- NOTE | 2017-11-06 08:38 | RAD ---
Date of service: 11/05/2017 PROCEDURE: Radiographs of the Right Shoulder HISTORY: fever, shoulder pain COMPARISON: No prior. FINDINGS: BONES: Three views of the right shoulder were performed for right shoulder pain. Moderate DJD of the right shoulder is identified. Moderate calcific bursitis is identified. No lytic process or dislocation is noted. No fracture is seen. There may also be a calcific loose body along the inferior glenohumeral articulation. JOINTS: DJD. SOFT TISSUES: Calcific bursitis. OTHER FINDINGS: None. IMPRESSION: Moderate DJD calcific bursitis. Possible additional calcific loose body in the inferior glenohumeral region.
--- NOTE | 2017-11-06 08:39 | RAD ---
Date of service: 11/05/2017 HISTORY: Sepsis Patient COMPARISON: 02/07/2017 FINDINGS: LUNGS: Single frontal portable view of the chest reveals no appreciable focal alveolar infiltrate, CHF, and/or pleural effusion. PLEURA: No significant pleural effusion identified, no pneumothorax apparent. CARDIOVASCULAR: Heart is unchanged in size on this limited portable AP radiograph. OSSEOUS STRUCTURES: No significant abnormalities. VISUALIZED UPPER ABDOMEN: Normal. OTHER FINDINGS: None. IMPRESSION: No appreciable focal infiltrate or CHF.
--- NOTE | 2017-11-06 12:46 | CT ---
Date of service: 11/05/2017 PROCEDURE: CT scan of the right upper extremity with contrast HISTORY: fever, tachycardia, shoulder swelling, r/o abscess COMPARISON: Right shoulder x-ray yesterday TECHNIQUE: CT scan of the right shoulder was performed utilizing multiple helical axial images. Sagittal and coronal reformatted images were obtained. Examination was performed after the administration of 90 milliliters of Omni 300. Dose: DLP 356 mGy FINDINGS: There is evidence of moderate degenerative changes of the right shoulder including calcific bursitis and partially calcified area of spurring or loose body noted in the inferior anterior glenohumeral joint region. No lytic process is seen. No fracture is noted. Acromioclavicular joint is not widened. Mild AC joint DJD is noted. No axillary adenopathy is seen. Vascular structures appear grossly patent. No appreciable focal fluid collection is seen to suggest abscess. Subcutaneous soft tissues show no evidence of significant soft tissue swelling or edema. No supraclavicular adenopathy is noted. Visualized right lung shows mild interstitial change but no appreciable infiltrate or nodule. Visualized scapula is intact. Overlying musculature in the shoulder girdle region and deltoid region show no evidence of mass. Mild bursitis is seen. IMPRESSION: No evidence of fracture or dislocation. No evidence of abscess. No evidence of osteomyelitis. Moderate degenerative changes of the right shoulder with calcific bursitis. If joint infection still remains of strong clinical concern, direct aspiration would be suggested.
== END 2017-11-06 02:50 | disposition home or self-care (01) ==
LOC: H.ER 19:08
DX: N39.0 Urinary tract infection, site not specified (principal); M75.32 Calcific tendinitis of left shoulder; E11.9 Type 2 diabetes mellitus without complications; I10 Essential (primary) hypertension; Z79.84 Long term (current) use of oral hypoglycemic drugs; Z79.82 Long term (current) use of aspirin; Z86.59 Personal history of other mental and behavioral disorders
CPT/HCPCS: 71045; 73030; 73201; 80053; 81003; 81025; 82803; 82948; 83735; 84100; 85025; 85610; 85730; 87040; 87086; 87181; 93005; 96374; 99285; J1885; J7120; Q9967

== ENCOUNTER 2018-01-01 11:36 | Emergency (ER) | payer MEDICARE, OTHER ==
[2018-01-01 11:38] VITALS: BMI 30.9
[2018-01-01] MEDS ORDERED: Sodium Chloride 0.9% 1,000 ML IV STA ×2 (12:31→14:50)
[2018-01-01 12:52] LABS: VENOUS BLOOD GAS BASE EXCESS -1.1 mmol/L (0.0-2.0); VENOUS BLOOD GAS PCO2 53 mmHg (40-60); VENOUS BLOOD GAS PO2 16 mm/Hg (30-55)
[2018-01-01] MEDS ORDERED: Insulin Regular 100 units/ml IV STA (12:53)
[2018-01-01] MEDS ORDERED: Insulin Regular 100 units/ml ONE (12:56)
[2018-01-01 13:12] LABS: SQUAMOUS EPITHIAL 5 /hpf (0-5); URINE BACTERIA RARE (<OCC); URINE BILIRUBIN NEGATIVE (NEGATIVE); URINE BLOOD NEGATIVE (NEGATIVE); URINE CLARITY SLIGHTY-CLOUDY (Clear); URINE COLOR YELLOW (YELLOW); URINE GLUCOSE (UA) >=500 mg/dL (Normal); URINE LEUKOCYTE ESTERASE NEG Leu/uL (Negative); URINE PROTEIN 100 mg/dL (NEGATIVE); URINE UROBILINOGEN 0.2-1.0 mg/dL (0.2-1.0)
[2018-01-01 13:22] LABS: BASO # 0.1 K/uL (0.0-0.2); BASO % 0.3 % (0.0-2.0); EOS # 0.2 K/uL (0.0-0.7); EOS % 0.9 % (0.0-4.0); HEMOGLOBIN 12.1 g/dL (12.0-16.0); LYMPH # 4.2 K/uL (1.0-4.3); LYMPH % 21.4 % (20.0-40.0); MEAN CELL VOLUME 80.9 fl (81.0-99.0); MEAN CORPUSCULAR HEMOGLOBIN 25.2 pg (27.0-31.0); MEAN CORPUSCULAR HGB CONC 31.2 g/dL (33.0-37.0); MEAN PLATELET VOLUME 9.7 fl (7.2-11.7); MONO # 1.3 K/uL (0.0-0.8); MONO % 6.4 % (0.0-10.0); NEUT # 13.9 K/uL (1.8-7.0); NRBC % 2.6 % (0.0-0.0); RBC 4.78 Mil/uL (3.80-5.20); RED CELL DISTRIBUTION WIDTH 13.8 % (11.5-14.5); WHITE BLOOD COUNT 19.7 K/uL (4.8-10.8)
--- NOTE | 2018-01-01 13:45 | RAD ---
Date of service: 01/01/2018 HISTORY: possible admission COMPARISON: 11/05/2017 FINDINGS: LUNGS: No active pulmonary disease. PLEURA: No significant pleural effusion identified, no pneumothorax apparent. CARDIOVASCULAR: Mild aortic atherosclerotic calcification present. Unchanged cardiac size. No pulmonary vascular congestion. OSSEOUS STRUCTURES: No significant abnormalities. VISUALIZED UPPER ABDOMEN: Normal. OTHER FINDINGS: None. IMPRESSION: No active disease.
[2018-01-01 13:53] LABS: ALB/GLOB RATIO 1.1 (1.0-2.1); ALT/SGPT 45 U/L (9-52); AST/SGOT 42 U/L (14-36); BLOOD UREA NITROGEN 16 mg/dl (7-17); CALCIUM 9.6 mg/dL (8.4-10.2); GFR NON-AFRICAN AMERICAN > 60; LIPASE 34 U/L (23-300)
--- NOTE | 2018-01-01 15:04 | ED PDOC ---
HPI: Abdomen Time Seen by Provider: 01/01/18 12:16 Chief Complaint (Nursing): Abdominal Pain History Per: Patient, EMS History/Exam Limitations: no limitations Onset/Duration Of Symptoms: Hrs (this morning) Current Symptoms Are (Timing): Still Present Additional Complaint(s): 67 year old female, with a past medical history of diabetes, presents to the ED via EMS with sudden onset of upper abdominal pain and vomiting since this morning. Despite taking medications as prescribed and close monitoring of glucose, glucose level is not controlled. Patient states she was fine going to sleep last night but had breakfast this morning and immediately vomited. She indicates the finger stick was 370 and frequently has UTI. Last year, patient had an operation for a spinal abscess but has been healthy lately. Denies blood or bile in vomit, previous abdominal surgeries, known sick contacts, or recent travel. PMD: Dr: Karla,Aron Casiano Jr. Past Medical History Reviewed: Historical Data, Nursing Documentation, Vital Signs Vital Signs: Last Vital Signs Temp 98.1 F 01/01/18 11:38 Pulse 93 H 01/01/18 11:38 Resp 20 01/01/18 11:38 BP 121/72 01/01/18 11:38 Pulse Ox 99 01/01/18 11:38 - Medical History PMH: Anxiety, Arthritis, Back Problems, Depression, Diabetes, Gastritis, HTN, Hypercholesterolemia Denies: HIV, Chronic Kidney Disease - Surgical History Surgical History: Endoscopy - Family History Family History: States: Unknown Family Hx - Immunization History Hx Tetanus Toxoid Vaccination: Yes Hx Influenza Vaccination: Yes Hx Pneumococcal Vaccination: Yes - Home Medications Home Medications: Ambulatory Orders Medication Instructions Recorded Amitriptyline [Elavil] 50 mg PO HS 10/07/16 Aspirin [Ecotrin] 81 mg PO DAILY 10/07/16 Cholecalciferol (Vitamin D3) 5,000 unit PO MO 10/07/16 [Vitamin D3] Enalapril Maleate [Vasotec] 5 mg PO DAILY 10/07/16 Glimepiride [amaRYL] 4 mg PO BID 10/07/16 Multivitamin [Multi-Vitamin Daily] 1 tab PO DAILY 10/07/16 Simvastatin [Zocor] 40 mg PO HS 10/07/16 Zolpidem [Ambien] 10 mg PO HS 10/07/16 hydrOXYzine Pamoate [Vistaril] 50 mg PO HS 10/07/16 Magnesium Hydroxide [Milk Of 30 ml PO DAILY 11/06/16 Magnesia] Docusate [Colace] 100 mg PO Q3 07/11/17 Gabapentin 300 mg PO TID 07/11/17 Insulin Degludec [Tresiba 100 unit SQ BID 07/11/17 Flextouch U-100] LORazepam [Ativan] 1 mg PO BID 07/11/17 Oxycodone HCl 10 mg PO Q6 07/11/17 Pantoprazole [Protonix] 40 mg PO DAILY 07/11/17 Ketorolac Tromethamine [Toradol] 10 mg PO BID #20 tab 11/06/17 levoFLOXacin [Levaquin] 750 mg PO DAILY #10 tab 11/06/17 - Allergies Allergies/Adverse Reactions: Allergies Allergy/AdvReac Type Severity Reaction Status Date / Time No Known Allergies Allergy Verified 01/01/18 11:37 Review of Systems ROS Statement: Except As Marked, All Systems Reviewed And Found Negative Gastrointestinal: Positive for: Vomiting, Abdominal Pain Physical Exam - Reviewed Nursing Documentation Reviewed: Yes Vital Signs Reviewed: Yes - Physical Exam Appears: Positive for: Non-toxic, No Acute Distress Head Exam: Positive for: ATRAUMATIC Skin: Positive for: Normal Color, Warm, Dry Eye Exam: Positive for: Normal appearance Neck: Positive for: Normal, Painless ROM Cardiovascular/Chest: Positive for: Regular Rate, Rhythm. Negative for: Murmur Respiratory: Positive for: Normal Breath Sounds. Negative for: Wheezing, Respiratory Distress Gastrointestinal/Abdominal: Positive for: Soft, Tenderness (Epigastic and RUQ tenderness) Extremity: Positive for: Normal ROM Neurologic/Psych: Positive for: Alert, Oriented. Negative for: Motor/Sensory Deficits Comments: Vitals within normal limits. Finger stick was over 500. - Laboratory Results Result Diagrams: 01/01/18 12:50 01/01/18 13:10 - ECG O2 Sat by Pulse Oximetry: 99 (RA) Pulse Ox Interpretation: Normal Medical Decision Making Medical Decision Making: Initial Impression: Workup for hyperglycemia with vomiting Initial Plan: --VBG shock panel --ECG --CMP --Lipase --CBC --Chest X-ray --Insulin 6 units IV --Sodium chloride 1000mL IV --Pepcid 40mg IV --Zofran 4mg IV --Urinalysis IV fluids, zofran, famotidine, insulin, possible CT abd/pelvis, and will reassess patient. 14:59 Elevated white blood cell count. Pain persistent. Will get CT abd/pelvis. --- Scribe Attestation: Documented by Clinton Schultz acting as a scribe for Dionna Nelson MD. Provider Scribe Attestation: All medical record entries made by the Scribe were at my direction and personally dictated by me. I have reviewed the chart and agree that the record accurately reflects my personal performance of the history, physical exam, medical decision making, and the department course for this patient. I have also personally directed, reviewed, and agree with the discharge instructions and disposition. Disposition - Clinical Impression Clinical Impression: Abdominal pain, Gastritis - Disposition Condition: IMPROVED Additional Instructions: Follow up with primary doctor within 5 days. Eat soft food (bread, clear soup, banana, apple sauce) for the next day. Increase water intake. Take medications as prescribed by primary medical doctor. Return to the emergency department if symptoms worsen or if new symptoms develop. Instructions: Viral Gastroenteritis, Adult (DC) Forms: [employer] (Welsh), [employer] (Irish) Print Language: GREEK
[2018-01-01] MEDS ORDERED: Iohexol 300 100 ML IJ ONE (16:33)
[2018-01-01] MEDS ORDERED: Sodium Chloride 0.9% 50 ML IV ONE (16:34)
--- NOTE | 2018-01-01 17:35 | CT ---
Date of service: 01/01/2018 PROCEDURE: CT Abdomen and Pelvis with contrast HISTORY: abd pain, vomiting, elv wbc COMPARISON: 04/16/2015 CT scan abdomen and pelvis, CT pelvis 10/11/2016, lumbar x-ray October 07, 2016 TECHNIQUE: Contrast dose: 90 mL Radiation dose: Total exam DLP = 776.81 mGy-cm. This CT exam was performed using one or more of the following dose reduction techniques: Automated exposure control, adjustment of the mA and/or kV according to patient size, and/or use of iterative reconstruction technique. FINDINGS: LOWER THORAX: Evaluation of the lung bases reveals mild linear subsegmental atelectasis and scarring. No new focal alveolar infiltrate or effusion is seen. Distal esophagus is grossly unremarkable without wall thickening. Visualized stomach is decompressed without wall thickening. Duodenum is within normal limits. LIVER: Liver is fatty infiltrated, without evidence of focal liver mass or intrahepatic ductal dilatation. GALLBLADDER AND BILE DUCTS: Unremarkable. PANCREAS: Unremarkable. No gross lesion or ductal dilatation. SPLEEN: Unremarkable. ADRENALS: There is stable appearance of the adrenal glands. KIDNEYS AND URETERS: There is once again evidence of a small right extrarenal pelvis. No new hydronephrosis or perinephric changes are seen adjacent to the kidneys. VASCULATURE: Mild atherosclerotic change of the aorta without aneurysmal dilatation. No para-aortic masses identified. BOWEL: Mid transverse colon is decompressed limiting evaluation. Minor amount of wall thickening at this region is not excluded although no pericolonic inflammatory changes are clearly seen. No bowel dilatation or bowel obstruction is noted. Small bowel shows no evidence of significant fold thickening or dilatation. APPENDIX: Normal appendix. PERITONEUM: No pneumoperitoneum is seen. No significant ascites is noted. No focal fluid collection to suggest abscess is noted. LYMPH NODES: Stable small scattered retroperitoneal lymph nodes are identified without new adenopathy. No inguinal adenopathy or pelvic adenopathy noted. BLADDER: Bladder is distended, without wall thickening. No bladder calculus is seen. REPRODUCTIVE: Uterus is normal in size. No adnexal masses are identified. BONES: Since the prior examinations there appears to been interval lower lumbar spine laminectomy and fusion surgery. This appears to be at the L4-5 disc space level with interval significant decrease in size of the disc space and some moderate compression deformity of the L5 vertebral body at the fusion site. There is vacuum disc abnormality seen at the L5-S1 disc space level. There is a transitional vertebral body at the lowest lumbosacral region which shall be designated as S1. Within the posterior laminectomy site there is some mild soft tissue, without definite abnormal enhancement or abscess appreciated. This may reflect postsurgical changes moderate areas of bony neural foraminal narrowing are seen at L4-5 and L5-S1 with lesser degree seen at L3-4. Posterior disc osteophyte complexes are seen at the L3-4, T12-L1 and L1-2 disc space levels. Some elements of acquired central stenosis are seen at each of these levels. No acute fracture is seen elsewhere. Visualized hip joint regions show mild degenerative change but without significant bursitis. There is resolution of a previously noted area of induration and cellulitis in the left anterior subcutaneous pelvic region. OTHER FINDINGS: None. IMPRESSION: No appreciable focal fluid collection in the abdomen to suggest abscess. Colon is decompressed in portions limiting evaluation. No significant pericolonic inflammatory changes however are seen, however minor wall thickening is not excluded. No small bowel obstruction seen. No mesenteric thickening identified. No CT scan evidence of appendicitis.. Status post lower lumbar spine laminectomy and fusion surgery when compared to prior examinations. No interval examination is available to assess for interval change in the postsurgical appearance. There appears to be nonspecific mild soft tissue within the laminectomy site without appreciable surrounding paraspinal enhancing soft tissue or focal fluid collection to suggest abscess. Comparison the prior studies may prove helpful to assess for subtle interval change. If there is strong clinical concern for discitis or osteomyelitis, MRI examination with contrast would be suggested.
[2018-01-01 17:38] VITALS: PULSE 76
[2018-01-01 18:47] VITALS: BP 122/78; RESP 16; TEMP 98.2
[2018-01-01 18:55] VITALS: O2SAT 99
--- NOTE | 2018-01-02 10:12 | CARD ---
APPROVED REPORT Date of service: 01/01/2018 EKG Measurement Heart [id number] <Conclusion> Normal sinus rhythm Normal ECG
== END 2018-01-01 18:48 | disposition home or self-care (01) ==
LOC: H.ER 11:36
DX: K29.70 Gastritis, unspecified, without bleeding (principal); R10.10 Upper abdominal pain, unspecified; D72.829 Elevated white blood cell count, unspecified; E11.9 Type 2 diabetes mellitus without complications; E78.00 Pure hypercholesterolemia, unspecified; Z79.4 Long term (current) use of insulin; I10 Essential (primary) hypertension
CPT/HCPCS: 71045; 74177; 80053; 81003; 82803; 82948; 83690; 85025; 93005; 96374; 96375; 99284; J2405; J7030; Q9967